=== PATIENT | male | born 1960 | race Caucasian/White ===

== ENCOUNTER → 2016-05-25 | Outpatient (CLI) | payer BC ==
[~2016-05-25] MED LIST: LOSA50TA6 PO
--- NOTE | 2016-05-25 18:26 | DIAGNOSTIC IMAGING REPORT ---
KUB HISTORY: SWALLOWED FOREIGN BODY COMPARISON: KUB 02/15/2015. FINDINGS: The bowel gas pattern is unremarkable. There are no dilated loops of small bowel to suggest an obstruction. No renal calculi. No ureteral calculi. No pneumoperitoneum or pneumatosis. No radiopaque foreign bodies. IMPRESSION: No radiopaque foreign bodies within the abdomen or pelvis. Electronically signed by: Pranav Rodriguez M.D. 05/25/2016 6:25 PM Dictated Date/Time: 05/25/2016 6:23 PM
--- NOTE | 2016-05-25 18:30 | DIAGNOSTIC IMAGING REPORT ---
CHEST 2 VIEWS ROUTINE HISTORY: Evaluate for foreign body. COMPARISON: Chest 02/23/2015. FINDINGS: The heart remains mildly enlarged. The lungs are clear. No pleural effusions. No pneumothorax. No radiopaque foreign bodies. IMPRESSION: No radiopaque foreign bodies within the chest. Electronically signed by: Pranav Rodriguez M.D. 05/25/2016 6:29 PM Dictated Date/Time: 05/25/2016 6:27 PM
== END | disposition home or self-care (01) ==
LOC: C.RAD 17:45
PROVIDERS: ATTEND Nurse Practitioner Family
DX: Z87.821 Personal history of retained foreign body fully removed (principal)

== ENCOUNTER 2024-11-04 22:04 | Inpatient (IN) ==
[2024-11-04 23:17] LABS: Appearance Urine Clear (Clear); Bacteria Urine Automated None Seen (None Seen); Cast Urine Automated 0-2 /lpf (0-2); Epithelial Cell Urine Auto 0-2 /hpf (0-2); Glucose Urine UA Negative (Negative); RBC Urine Automated 0-2 /hpf (0-2); WBC Urine Automated 0-5 /hpf (0-5)
[2024-11-04 23:18] LABS: Alanine Aminotransferase 89.0 U/L (7-52); Albumin Globulin Ratio 0.9 (0.9-2); Alkaline Phosphatase 127.0 U/L (34-104); Anion Gap 6.0 (3-11); Bilirubin,Total 1.5 mg/dl (0.2-1.0); Blood Urea Nitrogen 18.0 mg/dl (6-23); Calcium 9.4 mg/dl (8.6-10.3); Carbon Dioxide 26.0 mmol/L (21-32); Chloride 99.0 mmol/L (98-107); Creatinine Clr Calc Pharmacy 134.8 ml/min; Globulin 3.5 gm/dl (2.5-4.0); Glucose 119.0 mg/dl (70-99(Fasting)); Magnesium 1.9 mg/dl (1.7-2.4); Potassium 4.2 mmol/L (3.5-5.1); Sodium 131.0 mmol/L (136-145); Total Protein 6.6 gm/dl (6.0-8.3)
[2024-11-04 23:32] LABS: Influenza A virus by PCR Negative (Neg); Influenza B virus by PCR Negative (Neg); SARS CoV2 RNA(COVID-19) Ceph POSITIVE (Negative)
[2024-11-04 23:42] LABS: Hematocrit (blood only) 34.8 % (42.0-52.0); Hemoglobin 11.5 g/dl (14.0-18.0); Immature Granulocytes # (auto) 0.01 K/uL (0.01-0.20); Immature Granulocytes % (auto) 1.3 %; Mean Corpuscular Hemoglobin 29.4 pg (25.0-34.0); Mean Corpuscular Volume 89.0 fL (80.0-100.0); Platelet Count 131 K/uL (130-400); RDW Standard Deviation 45.3 fL (36.4-46.3); Red Blood Count 3.91 M/uL (4.70-6.10); White Blood Count 0.79 K/ul (4.8-10.8)
[2024-11-04 23:47] LABS: INR 1.1 (0.9-1.1); Partial Thromboplastin Time 30 Seconds (21-31); Prothrombin Time 11.9 Seconds (9.0-12.0)
--- NOTE | 2024-11-04 23:57 | XRay Report ---
Exam(s): XR CXR 1 VIEW EXAM: XR Chest, 1 View CLINICAL HISTORY: Reason for exam: Sepsis. TECHNIQUE: Frontal view of the chest. COMPARISON: Chest x-ray: 10/21/2024 FINDINGS: Lungs: Unremarkable. No consolidation. Pleural space: Unremarkable. No pneumothorax. Heart: Unremarkable. No cardiomegaly. Mediastinum: Unremarkable. Normal mediastinal contour. Bones/joints: Unremarkable. No acute fracture. IMPRESSION: No acute cardiopulmonary abnormality. Electronically signed by: Pantera Lindsay MD 11/04/24 23:56 PM
[2024-11-05] MEDS: SODIUM CHLORIDE 0.9% 1,000 ML IV SCH (00:16)
[2024-11-05] MEDS ORDERED: VANCOMYCIN CONSULT ACTIVE PRN ×2 (00:30→06:07)
--- NOTE | 2024-11-05 00:32 | Emergency Department Note ---
Impression & Plan Left sided abdominal pain, Lymphoma, Fever and neutropenia, COVID ED Provider Note CHIEF COMPLAINT: Fever HISTORY OF PRESENTING ILLNESS: The patient is a pleasant 64-year-old male who arrives to the emergency department with his for evaluation of fever that began yesterday. 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 He states he received his first treatment last week. He also reports a history of an ascending aortic aneurysm, which she was to have repaired, prior to his cancer diagnosis. He reports no chest pain, or shortness of breath. He states he noted having some matting, and drainage of his right eye upon waking yesterday. He states he called the [facility], who referred him to ophthalmology. He was diagnosed with bacterial conjunctivitis, and provided antibiotic drops. He states throughout the day he became increasingly tired, and noted a fever. He reports he then contacted the [facility] again, who stated he should be referred to the emergency department for evaluation. He does also report some abdominal pain, with nausea, however no vomiting. He reports no dysuria, diarrhea, or constipation. He is febrile upon arrival. REVIEW OF SYSTEMS: See HPI for pertinent positives and pertinent negatives. ALLERGIES: See below MEDICATIONS: See below PAST MEDICAL HISTORY: See below PHYSICAL EXAM: VITALS: Vitals are noted on the nurse's note and reviewed by myself. Vital signs stable. GENERAL: 64-year-old male, in no acute distress, nondiaphoretic, well-developed well-nourished. SKIN: The skin was without rashes, erythema, edema, or bruising. HEAD: Normocephalic atraumatic. EYES: Pupils equal round and reactive to light and accommodation. Right eye conjunctival injection, sclerae without icterus. Extraocular movements intact. No drainage noted. MOUTH: Mucous membranes moist. No tonsillar hypertrophy. Pharynx without erythema or exudate. Uvula midline. Airway patent. Tongue does not deviate. NECK: Supple without nuchal rigidity. No JVD. HEART: Tachycardia with regular rhythm without murmurs gallops or rubs. LUNGS: Clear to auscultation bilaterally without wheezes, rales or rhonchi. No retractions or accessory muscle use. ABDOMEN: Positive bowel sounds x 4. Soft, diffuse tenderness to palpation, most specifically in the left lower quadrant. No rebound tenderness or guarding. MUSCULOSKELETAL: No muscle atrophy, erythema, or edema noted. Normal gait. Strength 5/5 throughout. NEURO: Patient was alert and oriented to person place and time. No focal neurological deficits. DIFFERENTIAL DIAGNOSIS: Appendicitis, metastatic disease, neutropenic fever, viral illness,infections, diverticulitis, UTI, obstruction, mesenteric ischemia, aortic pathology, inflammatory bowel disease, renal colic, PUD, pancreatitis, biliary pathology, hernia, volvulus, constipation, as well as other pathologies. ED COURSE AND MEDICAL DECISION MAKING: HISTORY FROM INDEPENDENT HISTORIAN: at bedside serving as secondary historian. MEDICATIONS GIVEN: IV fluid resuscitation, initial thought for sepsis fluid volume resuscitation, however patient is currently receiving chemotherapy, and does have a cardiac history. Fluid resuscitation, was provided, however infused slowly to avoid fluid volume overload. MONITOR: Continuous hospital monitor: Order was placed for continuous hospital monitor. Patient was placed on the hospital monitor and continuous pulse ox. Patient was noted to be in normal sinus rhythm at an initial rate of 109 bpm per my interpretation. EKG: EKG was interpreted by myself as sinus tachycardia at a rate of 103 bpm, no ST elevation, or depression. Previous for comparison from 10/26/24 shows resolution of nonspecific T wave abnormality in inferior leads. INTERPRETATION OF LABS: I interpreted the labs with full lab results as below in the lab section of this note. Pertinent lab results discussed in the MDM section below. INTERPRETATION OF IMAGING: Imaging studies were interpreted by myself and read by radiology as per the imaging section of this note. CHRONIC MEDICAL/SOCIAL CONDITIONS AFFECTING CARE: Metastatic disease, splenic mass, ascending aorta dilatation. ESCALATION OF CARE CONSIDERED: Admission indicated for neutropenic fever, and administration of IV antibiotics. MDM SUMMARY: The patient is a pleasant, 64-year-old male who arrives to the emergency department for evaluation of the above-stated complaint. Patient arrived during a time of high acuity and high-volume. Initial workup was performed in triage including a saline lock, and initial sepsis workup. Lab work shows WBC 0.79, neutrophils 0.45, consistent with neutropenia. Patient does have a chronic anemia. Platelets within normal limits. Coags within normal limits. CMP shows slight hyponatremia at 131, total bilirubin 1.5, AST 71, ALT 89, alkaline phosphatase 127. Troponin 11.4. Urinalysis shows 1+ leukocyte esterase, no bacteria, negative nitrites. However respiratory viral panel positive for COVID. EKG interpreted as above. Chest x-ray shows no consolidative pneumonia. Procalcitonin, pending lactate negative. CT imaging of the abdomen and pelvis with IV contrast was obtained due to the patient's left lower quadrant tenderness to palpation, as well as diffuse tenderness. CT imaging shows splenomegaly, with an enhancing lesion measuring 13 x 10 mm. Few patchy similar hypodense areas are noted in remaining splenic parenchyma as well. Possibility of splenic lymphoma likely, biopsy is recommended. There is evidence of few prominent lymph nodes at the lennox hepatis and adjacent to the splenic hilum with the largest measuring 17 mm, which are stable. Multiple prominent nonnecrotic lymph nodes are also noted aortocaval para-aortic and right common iliac vessels which are stable. Few small gravel's are noted in bilateral kidneys which are stable. Patient also has an enlarged prostate, and hepatomegaly which are both stable. Patient was started on broad-spectrum antibiotics. Fluid resuscitation provided, however unable to administer initial boluses, weight-based due to cardiac history, as well as current chemotherapy in an attempt to avoid fluid overload. Patient will be admitted to the hospital for IV antibiotic administration, and neutropenia. Case was discussed with the [facility] hospitalist group. Dr. Anthony, Agreed to set the patient for admission. Please refer to their documentation for further patient workup and care. DIAGNOSIS: Fever and neutropenia, COVID, left-sided abdominal pain, lymphoma I have personally spent greater than 30 minutes of critical care time in the direct management of this patient. This includes bedside care, interpretation of diagnostic studies, and testing, discussion with consultants, patient, and family members, and other required patient management activities. This 30 minutes is in excess of all separately billable procedures. The chart was completed utilizing [employer] Speech voice recognition software. Grammatical errors, random word insertions, pronoun errors, and incomplete sentences are an occasional consequence of this system due to software limitations, ambient noise, and hardware issues. Any formal questions or concerns about the content, text, or information contained within the body of this dictation should be directly addressed to the provider for clarification. Past Med/Surg History Problem List (Updated 11/05/24 @ 03:57 by YARI Ventura) COVID (Acute) Fever and neutropenia (Acute) Left sided abdominal pain (Acute) Lymphoma (Acute) Short of breath on exertion Morbid obesity Splenic mass Pulmonary nodule Ex-smoker Bone lesion Lymphadenopathy (Acute) Atypical chest pain Weak urinary stream HAKEEM positive 03/2024 - weakly positive 1:80. Obtained for LFT w/u. No joint pains or rashes to suggest SLE at that time. Elevated PSA Transaminitis Obesity (BMI 30-39.9) Type 2 diabetes mellitus with obesity Essential tremor Elevated LFTs Liver ultrasound 08/2023: Cholelithiasis, hepatomegaly, nephrolithiasis Ascending aorta dilatation Echo 12/2022: Dilated aortic root (4.7cm), ascending aorta (4.0cm) and aortic arch (4.0cm) Hyperlipidemia Hypertension Medical History Weak urinary stream hx Type 2 diabetes mellitus with obesity pt denies, "never told this" Splenic mass pt unsure about this? Pulmonary nodule History of hypertension Hx of hyperlipidemia Essential tremor Ascending aorta dilatation dilated aortic root 5.1 cm 10/17/24, pt was scheduled for s[place] [facility] [place] "for this, but it had to be pushed back due to my cancer diagnosis" HAKEEM positive 03/2024 - "weakly positive 1:80. Obtained for LFT w/u. No joint pains or rashes to suggest SLE at that time.">per PCP Shortness of breath on exertion pt denies "never had this problem" Hx of lymphoma dx 10/17/24 Hx of hiatal hernia repaired Hx of gastroesophageal reflux (GERD) Actinic keratosis Located to bilateral forearms s/p cryotherapy at [facility] PVCs (premature ventricular contractions) asymptomatic Umbilical hernia without obstruction and without gangrene repaired Osteoarthritis Tubular adenoma of colon hx Hepatomegaly Per 08/2023 liver ultrasound Cholelithiases resolved Hx of renal calculi Right side Surgical History Port-A-Cath in place (10/22/24) Insertion of Access Port with Fluoroscopy left subclavian (Left) - Elie Petersen, DO Hx of cardiac cath (09/25/24) [facility] "preop for sx that was scheduled on his aorta for 10/29/24 at [facility]", no stents H/O umbilical hernia repair (01/23/24) Robotic Assisted Laparoscopic Cholecystectomy, Cholangiogram(Not Applicable) - Elie Petersen, DO s Open Umbilical Hernia Repair(Not Applicable) - Elie Petersen, DO Hx laparoscopic cholecystectomy (01/23/24) Robotic Assisted Laparoscopic Cholecystectomy, Cholangiogram(Not Applicable) - Elie Petersen, DO s Open Umbilical Hernia Repair(Not Applicable) - Elie Petersen, DO Status post laser lithotripsy of ureteral calculus x2 Hx of laparoscopy inguinal hernia mesh removal H/O left cataract extraction Hx of right cataract extraction Hx of cystoscopy History of esophagogastroduodenoscopy (EGD) Hx of colonoscopy 01/2023 S/P laparoscopic fundoplication (2001) Hx of hernia repair left inguinal hernia repair Hx of skin graft (1962) 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3 - skin graft from right leg to right axilla arm area Family History Father Myocardial infarction age 66 Heart disease Sister Cancer Brother Heart disease Other No family history of adverse response to anesthesia Denies family history of Ovarian cancer Prostate cancer Breast cancer Lung cancer Colorectal cancer Social History Smoking Status: Former smoker Tobacco Type: Cigarettes and Cigars Age Started Using Tobacco: 14; Age Quit Using Tobacco: 46; packs per day: 1; Second Hand Exposure: No; Do You Dip or Chew Tobacco: No; Hx Alcohol Use: Yes Alcohol type: beer and hard liquor Alcohol Intake Frequency: 2-3 x/Week Hx Substance Use: No Preferred Language: Kazakh Communication Ability: Effective Visual Impairment: No Limitations Hearing Ability: Normal Supervisor Home Restoration Service Required: No Beliefs That Will Affect Care: None marital status: Current Living Situation: Spouse current occupational status: employed How many Children do You have: 4 Feels Safe at Home: Yes Childhood Exposure to Second-Hand Smoke: No Diet: regular caffeine: Yes (soda , coffee ) during the past year weight has: decreased > 10 lbs Dental Care, Regularly: No Physical Activity Frequency: 5-6 Times per Week Seatbelt Use: always Sunscreen Use: No Assistive Devices: Denture - Upper and Glasses Allergies Allergies Allergy/AdvReac Type Severity Reaction Status Date / Time Sulfa (Sulfonamide Allergy Unknown Hives Verified 10/21/24 10:23 Antibiotics) Home Meds Home Medications Medication Instructions Recorded Confirmed aspirin 81 mg capsule 81 mg PO QAM preventative 11/20/22 11/05/24 multivitamin 1 tab PO QAM 11/20/22 11/05/24 amlodipine 5 mg tablet 5 mg PO QAM 08/28/23 11/05/24 ascorbic acid (vitamin C) 250 mg 500 mg PO QAM 08/28/23 11/05/24 tablet (Vitamin C) icosapent ethyl 1 gram capsule 1 g PO BID 08/28/24 11/05/24 (Vascepa) pravastatin 20 mg tablet 20 mg PO QAM 08/28/24 11/05/24 magnesium 1 tab PO QPM 10/17/24 11/05/24 tamsulosin 0.4 mg capsule (Flomax) 0.4 mg PO HS 10/17/24 11/05/24 ondansetron 8 mg disintegrating 8 mg PO Q8 PRN Nausea And Vomiting 11/05/24 11/05/24 tablet prochlorperazine maleate 10 mg 10 mg PO UD PRN Nausea And Vomiting 11/05/24 11/05/24 tablet Previous Rx's Medication Instructions Recorded omeprazole 40 mg capsule,delayed 40 mg PO QAM #90 caps 09/16/24 release oxycodone 5 mg tablet 5 mg PO Q6H PRN pain #12 tabs 10/21/24 Results & Data (ED) Vital Signs Vital Signs - 24 hr 11/04/24 22:10 11/04/24 22:58 11/04/24 22:58 Temperature 38 C H 37.5 C Temperature Source Oral Oral Pulse Rate 109 H 104 H Pulse Rate [Apical] 103 H Pulse Rate from SpO2 Sensor Pulse Rhythm Regular Regular Pulse Rhythm [Apical] Regular Pulse Strength Normal Pulse Strength [Apical] Normal Respiratory Rate 20 18 23 Respiratory Effort / Characteristics Non-Labored Spontaneous Non-Labored Spontaneous Respiratory Depth Normal Normal Respiratory Pattern Regular Regular Blood Pressure 104/62 Blood Pressure [Right Arm] 108/71 Blood Pressure Mean 76 Blood Pressure Mean [Right Arm] 83 Blood Pressure Position Sitting Pulse Oximetry 96 96 94 Oxygen Delivery Method Room Air Room Air Room Air Sepsis Recent Fever Within 48 Hours Yes Sepsis New/Unexplained Change in Mental Status N/A Sepsis Action Taken by Nursing No Action Required 11/04/24 23:30 11/05/24 00:00 11/05/24 00:30 Temperature Temperature Source Pulse Rate 96 H 96 H 100 H Pulse Rate [Apical] Pulse Rate from SpO2 Sensor Pulse Rhythm Pulse Rhythm [Apical] Pulse Strength Pulse Strength [Apical] Respiratory Rate 22 28 H 25 H Respiratory Effort / Characteristics Respiratory Depth Respiratory Pattern Blood Pressure 117/72 117/73 108/66 Blood Pressure [Right Arm] Blood Pressure Mean 87 86 81 Blood Pressure Mean [Right Arm] Blood Pressure Position Pulse Oximetry 91 91 96 Oxygen Delivery Method Sepsis Recent Fever Within 48 Hours Sepsis New/Unexplained Change in Mental Status Sepsis Action Taken by Nursing 11/05/24 01:24 11/05/24 01:30 11/05/24 02:00 Temperature Temperature Source Pulse Rate 95 H 93 H 89 Pulse Rate [Apical] Pulse Rate from SpO2 Sensor Pulse Rhythm Pulse Rhythm [Apical] Pulse Strength Pulse Strength [Apical] Respiratory Rate 24 24 21 Respiratory Effort / Characteristics Respiratory Depth Respiratory Pattern Blood Pressure 123/70 118/68 118/66 Blood Pressure [Right Arm] Blood Pressure Mean 87 86 83 Blood Pressure Mean [Right Arm] Blood Pressure Position Pulse Oximetry 98 93 92 Oxygen Delivery Method Sepsis Recent Fever Within 48 Hours Sepsis New/Unexplained Change in Mental Status Sepsis Action Taken by Nursing 11/05/24 02:15 11/05/24 02:30 11/05/24 03:00 Temperature Temperature Source Pulse Rate 88 93 H 83 Pulse Rate [Apical] Pulse Rate from SpO2 Sensor 82 Pulse Rhythm Pulse Rhythm [Apical] Pulse Strength Pulse Strength [Apical] Respiratory Rate 24 21 25 H Respiratory Effort / Characteristics Respiratory Depth Respiratory Pattern Blood Pressure 114/67 112/68 106/61 Blood Pressure [Right Arm] Blood Pressure Mean 82 82 76 Blood Pressure Mean [Right Arm] Blood Pressure Position Pulse Oximetry 93 97 92 Oxygen Delivery Method Room Air Sepsis Recent Fever Within 48 Hours Sepsis New/Unexplained Change in Mental Status Sepsis Action Taken by [facility] Medications Current Medication List: was personally reviewed by me Laboratory Data Attestation: I reviewed the patient's lab results. 11/04/24 22:30 11/04/24 22:30 Lab Results 11/04/24 11/04/24 11/04/24 Range/Units 22:30 22:32 23:00 WBC 0.79 L* (4.8-10.8) K/ul RBC 3.91 L (4.70-6.10) M/uL Hgb 11.5 L (14.0-18.0) g/dl Hct 34.8 L (42.0-52.0) % MCV 89.0 (80.0-100.0) fL MCH 29.4 (25.0-34.0) pg MCHC 33.0 (32.0-36.0) g/dL RDW Std Deviation 45.3 (36.4-46.3) fL RDW Coeff of Sharita 14.0 (11.5-14.5) % Plt Count 131 (130-400) K/uL MPV 9.1 L (9.4-12.4) fL Immature Gran % (Auto) 1.3 % Neut % (Auto) 56.9 % Lymph % (Auto) 17.7 % Dane % (Auto) 5.1 % Eos % (Auto) 16.5 % Baso % (Auto) 2.5 % Neut # (Auto) 0.45 L* (1.40-6.50) K/uL Lymph # (Auto) 0.14 L (1.20-3.40) K/uL Dane # (Auto) 0.04 L (0.11-0.59) K/uL Eos # (Auto) 0.13 (0.00-0.50) K/uL Baso # (Auto) 0.02 (0.00-0.20) K/uL Immature Gran # (Auto) 0.01 (0.01-0.20) K/uL PT 11.9 (9.0-12.0) Seconds INR 1.1 (0.9-1.1) APTT 30 (21-31) Seconds PTT Ratio 1.1 Sodium 131 L (136-145) mmol/L Potassium 4.2 (3.5-5.1) mmol/L Chloride 99 (98-107) mmol/L Carbon Dioxide 26 (21-32) mmol/L Anion Gap 6 (3-11) BUN 18 (6-23) mg/dl Creatinine 0.73 (0.6-1.4) mg/dl Est Cr Clr Drug Dosing 134.8 ml/min eGFR 100.34 BUN/Creatinine Ratio 24.7 H (10-20) Glucose 119 H (70-99(Fasting)) mg/dl Lactate (0.4-2.0) mmol/L Calcium 9.4 (8.6-10.3) mg/dl Magnesium 1.9 (1.7-2.4) mg/dl Total Bilirubin 1.5 H (0.2-1.0) mg/dl AST 71 H (13-39) U/L ALT 89 H (7-52) U/L Alkaline Phosphatase 127 H (34-104) U/L Troponin I High Sens 11.4 (0-20) pg/ml Total Protein 6.6 (6.0-8.3) gm/dl Albumin 3.1 L (3.4-5.0) gm/dl Globulin 3.5 (2.5-4.0) gm/dl Albumin/Globulin Ratio 0.9 (0.9-2) Urine Color Yellow Urine Appearance Clear (Clear) Urine pH 6.5 (4.5-7.5) Ur Specific Wainwright 1.015 (1.000-1.030) Urine Protein Negative (Negative) Urine Glucose (UA) Negative (Negative) Urine Ketones Negative (Negative) Urine Blood Negative (Negative) Urine Nitrite Negative (Negative) Urine Bilirubin Negative (Negative) Urine Urobilinogen Negative (Negative) Ur Leukocyte Esterase 1+ H (Negative) Urine WBC (Auto) 0-5 (0-5) /hpf Urine RBC (Auto) 0-2 (0-2) /hpf U Hyaline Cast (Auto) 0-2 (0-2) /lpf U Epithel Cells (Auto) 0-2 (0-2) /hpf Urine Bacteria (Auto) None Seen (None Seen) Urine Comment SARS-CoV-2 (PCR) POSITIVE A (Negative) Influenza Type A (PCR) Negative (Neg) Influenza Type B (PCR) Negative (Neg) RSV (RT-PCR) Negative (Neg) 11/05/24 Range/Units 00:53 WBC (4.8-10.8) K/ul RBC (4.70-6.10) M/uL Hgb (14.0-18.0) g/dl Hct (42.0-52.0) % MCV (80.0-100.0) fL MCH (25.0-34.0) pg MCHC (32.0-36.0) g/dL RDW Std Deviation (36.4-46.3) fL RDW Coeff of Sharita (11.5-14.5) % Plt Count (130-400) K/uL MPV (9.4-12.4) fL Immature Gran % (Auto) % Neut % (Auto) % Lymph % (Auto) % Dane % (Auto) % Eos % (Auto) % Baso % (Auto) % Neut # (Auto) (1.40-6.50) K/uL Lymph # (Auto) (1.20-3.40) K/uL Dane # (Auto) (0.11-0.59) K/uL Eos # (Auto) (0.00-0.50) K/uL Baso # (Auto) (0.00-0.20) K/uL Immature Gran # (Auto) (0.01-0.20) K/uL PT (9.0-12.0) Seconds INR (0.9-1.1) APTT (21-31) Seconds PTT Ratio Sodium (136-145) mmol/L Potassium (3.5-5.1) mmol/L Chloride (98-107) mmol/L Carbon Dioxide (21-32) mmol/L Anion Gap (3-11) BUN (6-23) mg/dl Creatinine (0.6-1.4) mg/dl Est Cr Clr Drug Dosing ml/min eGFR BUN/Creatinine Ratio (10-20) Glucose (70-99(Fasting)) mg/dl Lactate 0.9 (0.4-2.0) mmol/L Calcium (8.6-10.3) mg/dl Magnesium (1.7-2.4) mg/dl Total Bilirubin (0.2-1.0) mg/dl AST (13-39) U/L ALT (7-52) U/L Alkaline Phosphatase (34-104) U/L Troponin I High Sens (0-20) pg/ml Total Protein (6.0-8.3) gm/dl Albumin (3.4-5.0) gm/dl Globulin (2.5-4.0) gm/dl Albumin/Globulin Ratio (0.9-2) Urine Color Urine Appearance (Clear) Urine pH (4.5-7.5) Ur Specific Wainwright (1.000-1.030) Urine Protein (Negative) Urine Glucose (UA) (Negative) Urine Ketones (Negative) Urine Blood (Negative) Urine Nitrite (Negative) Urine Bilirubin (Negative) Urine Urobilinogen (Negative) Ur Leukocyte Esterase (Negative) Urine WBC (Auto) (0-5) /hpf Urine RBC (Auto) (0-2) /hpf U Hyaline Cast (Auto) (0-2) /lpf U Epithel Cells (Auto) (0-2) /hpf Urine Bacteria (Auto) (None Seen) Urine Comment SARS-CoV-2 (PCR) (Negative) Influenza Type A (PCR) (Neg) Influenza Type B (PCR) (Neg) RSV (RT-PCR) (Neg) Administered Medications Discontinued Medications Sodium Chloride (Nss) 1,000 mls @ 999 mls/hr IV .[id number] TABITHA Stop: 11/05/24 01:15 Last Infusion: 11/05/24 02:19 Dose: Infused Documented By: Admin: 11/05/24 00:16 Dose: 999 mls/hr Documented By: GABRIELLE Vancomycin HCl 2,250 mg/ (Sodium Chloride) 545 mls @ 200 mls/hr IV NOW ONE Stop: 11/05/24 03:13 Last Admin: 11/05/24 01:34 Dose: 200 mls/hr Documented By: GABRIELLE Piperacillin Sod/Tazobactam Sod (Zosyn) 4.5 gm in 100 mls @ 200 mls/hr IV NOW ONE; Protocol Stop: 11/05/24 00:59 Last Infusion: 11/05/24 02:19 Dose: Infused Documented By: Admin: 11/05/24 00:55 Dose: 200 mls/hr Documented By: GABRIELLE Ioversol (Optiray 320 100ml) 100 ml IV ONCE ONE Stop: 11/05/24 01:11 Last Admin: 11/05/24 01:11 Dose: 93 ml Documented By: KELLY Imaging Data Attestation: I personally reviewed and interpreted this imaging study as follows: Radiologist's Impression: Chest X-Ray 11/04/24 22:15 Exam(s): XR CXR 1 VIEW EXAM: XR Chest, 1 View CLINICAL HISTORY: Reason for exam: Sepsis. TECHNIQUE: Frontal view of the chest. COMPARISON: Chest x-ray: 10/21/2024 FINDINGS: Lungs: Unremarkable. No consolidation. Pleural space: Unremarkable. No pneumothorax. Heart: Unremarkable. No cardiomegaly. Mediastinum: Unremarkable. Normal mediastinal contour. Bones/joints: Unremarkable. No acute fracture. IMPRESSION: No acute cardiopulmonary abnormality. Electronically signed by: Pantera Lindsay MD 11/04/24 23:56 PM Abdomen/Pelvis CT 11/05/24 00:16 EXAM: CT abd pelvis IV con only CLINICAL HISTORY: abd pain TECHNIQUE: Contiguous axial images were obtained from the level of the diaphragm to the pubic symphysis with intravenous contrast. Coronal and sagittal reconstructions were likewise performed and indicated to increase the sensitivity for detecting clinically relevant pathology. If IV contrast material had not been administered, the likelihood of detecting abnormalities relevant to the patient's condition would have been substantially decreased. CT scan was performed according to ALARA (as low as reasonable achievable). 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 Evidence of few prominent lymph nodes at lennox hepatis and adjacent to the splenic hilum.- largest measures 18 mm Multiple prominent non-necrotic lymph nodes are also noted at aortocaval, para-aortic and right common iliac vessels- largest measuring 23 mm The spleen appears enlarged in size and shows a huge heterogeneously enhancing lesion measuring about 13 x 10 mm. Few patchy similar hypodense area are noted in remaining splenic parenchyma as well. The liver is enlarged size (19cm in mid clavicular line)and normal in attenuation. No focal liver lesions are seen. There is no intra or extrahepatic biliary ductal dilatation. Hepatic vasculature is patent. The gallbladder is absent. The pancreas, and adrenal glands are unremarkable. The kidneys are normal in size and attenuation. There is no hydronephrosis or perinephric fat stranding. Few small gravels are noted involving bilateral kidneys The ureters are normal in caliber and no ureteral calculi are seen. The bladder is normal in contour. Pelvic viscera are unremarkable. No focal or diffuse bowel wall thickening or evidence of bowel obstruction is identified. The appendix is visualized in the right lower quadrant and appears within normal limits. Abdominal and pelvic vasculature is patent. No aggressive appearing osseous lesions are identified. Enlarged prostate. IMPRESSION: 1. The spleen appears enlarged in size and shows a huge heterogeneously enhancing lesion measuring about 13 x 10 mm. 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 -stable in size. HPE correlation suggested. 2. Evidence of few prominent lymph nodes at lennox hepatis and adjacent to the splenic hilum.- largest measures 17 mm-stable. 3. Multiple prominent non-necrotic lymph nodes are also noted at aortocaval, para-aortic and right common iliac vessels- -stable. 4. Few small gravels are noted in bilateral kidney-stable. 5. Enlarged prostate.-stable. 6. Hepatomegaly- stable Electronically signed by Navid Falcon 11-05-2024 02:30 AM Discharge Plan Visit Data Chief Complaint: Fever Stated Complaint: HIGH FEVER, STAGE 4 CANCER ED Provider: Marisel Kong ED Midlevel Provider: Breanne Pizarro Discharge Problem: Left sided abdominal pain, Lymphoma, Fever and neutropenia, COVID Patient Disposition: Admitted As Inpatient Condition: Fair Forms Stand Alone Forms: [facility] Prescriptions Prescriptions: No Action omeprazole 40 mg capsule,delayed release(DR/EC) 40 mg PO QAM Qty: 90 3RF amlodipine 5 mg tablet 5 mg PO QAM icosapent ethyl [Vascepa] 1 gram capsule 1 g PO BID pravastatin 20 mg tablet 20 mg PO QAM multivitamin Tablet 1 tab PO QAM aspirin 81 mg Capsule 81 mg PO QAM ascorbic acid (vitamin C) [Vitamin C] 250 mg tablet 500 mg PO QAM magnesium Tablet 1 tab PO QPM tamsulosin [Flomax] 0.4 mg capsule 0.4 mg PO HS oxycodone 5 mg tablet 5 mg PO Q6H PRN (Reason: pain) Qty: 12 0RF Rx Instructions: Initial therapy post surgery prochlorperazine maleate 10 mg tablet 10 mg PO UD PRN (Reason: Nausea And Vomiting) ondansetron 8 mg tablet,disintegrating 8 mg PO Q8 PRN (Reason: Nausea And Vomiting) Referrals Referrals: Ochoa Brown DO [Primary Care Provider] -
[2024-11-05] MEDS: PIPERACILLIN/TAZOBACTAM 4.5 GM/100 ML BAG IV ONE (00:55)
[2024-11-05] MEDS: OPTIRAY 320 100ml IV ONE (01:11)
[2024-11-05] MEDS: VANCOMYCIN HCL 2,250 MG in SODIUM CHLORIDE 0.9% 500 ML IV ONE (01:34)
--- NOTE | 2024-11-05 02:31 | CT Scan Report ---
EXAM: CT abd pelvis IV con only CLINICAL HISTORY: abd pain TECHNIQUE: Contiguous axial images were obtained from the level of the diaphragm to the pubic symphysis with intravenous contrast. Coronal and sagittal reconstructions were likewise performed and indicated to increase the sensitivity for detecting clinically relevant pathology. If IV contrast material had not been administered, the likelihood of detecting abnormalities relevant to the patient's condition would have been substantially decreased. CT scan was performed according to ALARA (as low as reasonable achievable). COMPARISON: October 20:12:19 COUNSELING CASE MANAGER FINDINGS: The visualized lung bases are clear.Sliding hiatus hernia noted.-stable. Evidence of few prominent lymph nodes at lennox hepatis and adjacent to the splenic hilum.- largest measures 18 mm Multiple prominent non-necrotic lymph nodes are also noted at aortocaval, para-aortic and right common iliac vessels- largest measuring 23 mm The spleen appears enlarged in size and shows a huge heterogeneously enhancing lesion measuring about 13 x 10 mm. Few patchy similar hypodense area are noted in remaining splenic parenchyma as well. The liver is enlarged size (19cm in mid clavicular line)and normal in attenuation. No focal liver lesions are seen. There is no intra or extrahepatic biliary ductal dilatation. Hepatic vasculature is patent. The gallbladder is absent. The pancreas, and adrenal glands are unremarkable. The kidneys are normal in size and attenuation. There is no hydronephrosis or perinephric fat stranding. Few small gravels are noted involving bilateral kidneys The ureters are normal in caliber and no ureteral calculi are seen. The bladder is normal in contour. Pelvic viscera are unremarkable. No focal or diffuse bowel wall thickening or evidence of bowel obstruction is identified. The appendix is visualized in the right lower quadrant and appears within normal limits. Abdominal and pelvic vasculature is patent. No aggressive appearing osseous lesions are identified. Enlarged prostate. IMPRESSION: 1. The spleen appears enlarged in size and shows a huge heterogeneously enhancing lesion measuring about 13 x 10 mm. 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 -stable in size. HPE correlation suggested. 2. Evidence of few prominent lymph nodes at lennox hepatis and adjacent to the splenic hilum.- largest measures 17 mm-stable. 3. Multiple prominent non-necrotic lymph nodes are also noted at aortocaval, para-aortic and right common iliac vessels- -stable. 4. Few small gravels are noted in bilateral kidney-stable. 5. Enlarged prostate.-stable. 6. Hepatomegaly- stable Electronically signed by Navid Falcon 11-05-2024 02:30 AM
--- NOTE | 2024-11-05 03:51 | History & Physical Report ---
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 #Fever in neutropenic patient - in a patient on immunotherapy for AITL, first and only dose of immunotherapy so far was on 10/30 - pt with fever at home 102F and was also febrile on presentation to the hospital, as well as leukopenic/neutropenic - he tested positive for COVID in the ED but does not endorse any resp symptoms aside from chronic cough which is not worse, - CXR unremarkable, CT abd without apparent acute process - cause of fever may be due to early COVID infection vs gastroenteritis since he has diarrhea on admission, or from bacterial conjunctivitis - given absence of significant resp symptoms on admission, will defer remdesivir for now - blood cx pending - will place for c diff order for diarrhea - continue antibiotic eye drops q2h for 3 days (ordered same medication as prescribed by eye doctor) - continue zosyn and vanc pending cultures - neutropenic precautions - IVF 80/hr x1 bag #Lymphoma #Splenic mass - follows with Dr Hodges with local oncology - CT abd 11/04; splenomegaly with 13x10 mm lesion stable in size with few prominant lymph nodes largest 17 mm and hepatomegaly #Transaminitis - on admission; AST 71, ALT 89, Tbili 1.5 - no acute process noted on CTAP - has had mild transaminitis on prior labs dating back to 02/2024 and at that time hep B was negative, hep C Ab negative, hemochromatosis tested and negative for this - will continue to monitor given very mild but if worsening could consider further evaluation #HTN - BP on admission is soft, so will hold home amlodipine VTE ppx: lovenox Diet: starting with clear diet given diarrhea and episode of vomiting, can increase as tolerated History of Present Illness Chief Complaint: Fever Primary Care Provider: Ochoa Brown DO Pt is a 64 yo male with a 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 Pt states he had his first dose of immunotherapy last week on and initially felt okay and actually started to feel half decent on Sunday, then on Sunday started to feel generalized malaise and fatigue. He states he has a chronic cough which has not necessarily been worse. He states he sometimes can cough up some mucus which is clear and nonbloody. He has also noted some abdominal cramping the last few days and today has had nonbloody diarrhea. He states he flips back and forth between being constipated and having diarrhea, if he has diarrhea he takes imodium but then gets constipated and then takes miralax. No dysuria or blood in the urine. He states that on 11/04 he woke up with eye irritation and discharged, called the cancer center, they told him to see his eye doctor who dx him with bacterial conjunctivitis and gave him eye drops. He states throughout the day he then developed fever to 102F at home. He states he called the cancer center again and given the fever they urged him to come into the ED. He states on 11/04 he had some nausea and an episode of vomiting as well. No chest pain or SOB. No pain anywhere at the present. Allergies Allergy/AdvReac Type Severity Reaction Status Date / Time Sulfa (Sulfonamide Allergy Unknown Hives Verified 10/21/24 10:23 Antibiotics) Home Medications Medication Instructions Recorded Confirmed Type aspirin 81 mg capsule 81 mg PO QAM preventative 11/20/22 11/05/24 History multivitamin 1 tab PO QAM 11/20/22 11/05/24 History amlodipine 5 mg tablet 5 mg PO QAM 08/28/23 11/05/24 History ascorbic acid (vitamin C) 250 mg 500 mg PO QAM 08/28/23 11/05/24 History tablet (Vitamin C) icosapent ethyl 1 gram capsule 1 g PO BID 08/28/24 11/05/24 History (Vascepa) pravastatin 20 mg tablet 20 mg PO QAM 08/28/24 11/05/24 History omeprazole 40 mg capsule,delayed 40 mg PO QAM #90 caps 09/16/24 11/05/24 Rx release magnesium 1 tab PO QPM 10/17/24 11/05/24 History tamsulosin 0.4 mg capsule (Flomax) 0.4 mg PO HS 10/17/24 11/05/24 History oxycodone 5 mg tablet 5 mg PO Q6H PRN pain #12 tabs 10/21/24 11/05/24 Rx ondansetron 8 mg disintegrating 8 mg PO Q8 PRN Nausea And Vomiting 11/05/24 11/05/24 History tablet prochlorperazine maleate 10 mg 10 mg PO UD PRN Nausea And Vomiting 11/05/24 11/05/24 History tablet Past Med/Surg History Problem List (Updated 11/10/24 @ 10:39 by William Marcano DO) GAYATRI (acute kidney injury) Fever and neutropenia (Acute) COVID (Acute) Left sided abdominal pain (Acute) Lymphoma (Acute) Short of breath on exertion Morbid obesity Splenic mass Pulmonary nodule Ex-smoker Bone lesion Lymphadenopathy (Acute) Atypical chest pain Weak urinary stream HAKEEM positive 03/2024 - weakly positive 1:80. Obtained for LFT w/u. No joint pains or rashes to suggest SLE at that time. Elevated PSA Transaminitis Obesity (BMI 30-39.9) Type 2 diabetes mellitus with obesity Essential tremor Elevated LFTs Liver ultrasound 08/2023: Cholelithiasis, hepatomegaly, nephrolithiasis Ascending aorta dilatation Echo 12/2022: Dilated aortic root (4.7cm), ascending aorta (4.0cm) and aortic arch (4.0cm) Hyperlipidemia Hypertension Medical History (Updated 11/10/24 @ 10:39 by William Marcano DO) Weak urinary stream hx Type 2 diabetes mellitus with obesity pt denies, "never told this" Splenic mass pt unsure about this? Pulmonary nodule History of hypertension Hx of hyperlipidemia Essential tremor Ascending aorta dilatation dilated aortic root 5.1 cm 10/17/24, pt was scheduled for sx at [facility] [place] 10/29/24 "for this, but it had to be pushed back due to my cancer diagnosis" HAKEEM positive 03/2024 - "weakly positive 1:80. Obtained for LFT w/u. No joint pains or rashes to suggest SLE at that time.">per PCP Shortness of breath on exertion pt denies "never had this problem" Hx of lymphoma dx 10/17/24 Hx of hiatal hernia repaired Hx of gastroesophageal reflux (GERD) Actinic keratosis Located to bilateral forearms s/p cryotherapy at [facility] PVCs (premature ventricular contractions) asymptomatic Umbilical hernia without obstruction and without gangrene repaired Osteoarthritis Tubular adenoma of colon hx Hepatomegaly Per 08/2023 liver ultrasound Cholelithiases resolved Hx of renal calculi Right side Surgical History Port-A-Cath in place (10/22/24) Insertion of Access Port with Fluoroscopy left subclavian (Left) - Elie Petersen, DO Hx of cardiac cath (09/25/24) [facility], "preop for sx that was scheduled on his aorta for 10/29/24 at [facility]", no stents H/O umbilical hernia repair (01/23/24) Robotic Assisted Laparoscopic Cholecystectomy, Cholangiogram(Not Applicable) - Elie Petersen, DO s Open Umbilical Hernia Repair(Not Applicable) - Elie Petersen, DO Hx laparoscopic cholecystectomy (01/23/24) Robotic Assisted Laparoscopic Cholecystectomy, Cholangiogram(Not Applicable) - Elie Petersen, DO s Open Umbilical Hernia Repair(Not Applicable) - Elie Petersen, DO Status post laser lithotripsy of ureteral calculus x2 Hx of laparoscopy inguinal hernia mesh removal H/O left cataract extraction Hx of right cataract extraction Hx of cystoscopy History of esophagogastroduodenoscopy (EGD) Hx of colonoscopy 01/2023 S/P laparoscopic fundoplication (2001) Hx of hernia repair left inguinal hernia repair Hx of skin graft (1962) 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3 - skin graft from right leg to right axilla arm area Family History Father Myocardial infarction age 66 Heart disease Sister Cancer Brother Heart disease Other No family history of adverse response to anesthesia Denies family history of Ovarian cancer Prostate cancer Breast cancer Lung cancer Colorectal cancer Social History Smoking Status: Former smoker Tobacco Type: Cigarettes Age Started Using Tobacco: 14; Age Quit Using Tobacco: 46; packs per day: 1; Second Hand Exposure: No; Do You Dip or Chew Tobacco: No; Hx Alcohol Use: Yes Alcohol type: beer and hard liquor Alcohol Intake Frequency: 2-3 x/Week Hx Substance Use: No Preferred Language: Chinese Communication Ability: Effective Visual Impairment: No Limitations Hearing Ability: Normal Credit Control Assistant Required: No Beliefs That Will Affect Care: None marital status: Current Living Situation: Spouse current occupational status: employed How many Children do You have: 4 Other Information That Helps Us Care for You: No Feels Safe at Home: Yes Safety Concerns: Feels Safe At This Time Childhood Exposure to Second-Hand Smoke: No Diet: regular caffeine: Yes (soda , coffee ) during the past year weight has: decreased > 10 lbs Dental Care, Regularly: No Physical Activity Frequency: 5-6 Times per Week Seatbelt Use: always Sunscreen Use: No Assistive Devices: None Review of Systems Review of Systems: Per HPI. Physical Exam Physical Exam: General: Alert and oriented, no acute distress, very pleasant gentleman HEENT: Normocephalic, moist oral mucosa, R sclera injection noted with watery discharge, L eye wnl Cardio: Regular rate and rhythm, Resp: Lungs clear to auscultation b/l, no wheezes or rhonchi, GI: Distended but soft and nontender, bowel sounds active Skin: Warm, pink, dry, Results & Data Results & Data Vital Signs (Past 12 Hours) Vital Signs Temp Pulse Pulse Resp BP BP Pulse Ox 11/05/24 03:00 83 25 H 106/61 92 11/05/24 02:30 93 H 21 112/68 97 11/05/24 02:15 88 24 114/67 93 11/05/24 02:00 89 21 118/66 92 11/05/24 01:30 93 H 24 118/68 93 11/05/24 01:24 95 H 24 123/70 98 11/05/24 00:30 100 H 25 H 108/66 96 11/05/24 00:00 96 H 28 H 117/73 91 11/04/24 23:30 96 H 22 117/72 91 11/04/24 22:58 104 H 23 94 11/04/24 22:58 37.5 C 103 H 18 108/71 96 11/04/24 22:10 38 C H 109 H 20 104/62 96 O2 Del Method 11/05/24 03:00 Room Air 11/05/24 02:30 11/05/24 02:15 11/05/24 02:00 11/05/24 01:30 11/05/24 01:24 11/05/24 00:30 11/05/24 00:00 11/04/24 23:30 11/04/24 22:58 Room Air 11/04/24 22:58 Room Air 11/04/24 22:10 Room Air Supervising Physician Co-Signing Physician Notes I personally saw and examined the patient. I independently reviewed the labs, EKG, imaging, problem list, medication list, past medical history and family history. I verified all mcwilliams points and agree with resident physician Dr Amy Ye, with the following exceptions and/or additions: 64 year old male presents to the ER with febrile neutropenia. COVID +ve in the ER although only symptom is a cough which does not appear to be acute. O/E HS RRR, no murmurs, Chest CTAB, Abdo SNT A/P Febrile neutropenia - vancomcin/Zosyn pending blood cultures, if negative can be discontinued and presumably secondary to COVID Resident Activity Tracking Resident Involvement: Resident Care Provided Care Provided: Adult Hospital Medicine
[2024-11-05] MEDS ORDERED: VANCOMYCIN HCL 2,250 MG in SODIUM CHLORIDE 0.9% 500 ML IV ONE (06:07)
[2024-11-05] MEDS ORDERED: POLYETHYLENE (MIRALAX) 17 GM PACK PO PRN (06:07)
[2024-11-05] MEDS: TRIMETHOPRIM/POLYMYXIN B OP SCH (07:51)
[2024-11-05] MEDS: ENOXAPARIN INJ 40 MG/0.4 ML SYR SQ SCH (07:51)
[2024-11-05] MEDS: ASCORBIC ACID 500 MG TAB PO SCH (07:51)
[2024-11-05] MEDS: LACTATED RINGER'S 1,000 ML IV SCH (07:52)
[2024-11-05] MEDS: PIPERACILLIN/TAZOBACTAM 4.5 GM/100 ML BAG IV SCH (07:52)
[2024-11-05 08:03] LABS: Cdiff Toxin B Gene (2yr or >) Negative Cdiff Gene (Neg)
[2024-11-05] MEDS ORDERED: Nursing to Pharmacy Communication SCH (08:15)
[2024-11-05] MEDS ORDERED: HEPARIN 100 UNIT/ML 5ML FLUSH FLUSH PRN (08:59)
[2024-11-05] MEDS: ACETAMINOPHEN 325 MG TAB PO PRN (09:02)
--- NOTE | 2024-11-05 09:07 | Pharmacy Report ---
Pharmacy PK ABX Note - Date of Service November 05, 2024 - Assessment and Plan Assessment 64 year old M receiving vancomycin/Zosyn for treatment of neutropenic fever status post immunotherapy 10/30 for lymphoma. Pertinent microbiologic data includes: blood cultures pending. Day # 1 of antimicrobial therapy. Plan Vancomycin * Loading dose: 2250 mg IV x 1 * Maintenance dose: 1500 mg IV every 12 hours * Regimen is predicted to achieve target AUC/ARCHANA of 400-600 mg/L.hr * Random level ordered for: 11/07/24 with AM labs Pharmacy will continue to follow and will adjust dose/frequency as necessary. Thank you. Pharmacy has transitioned to AUC monitoring for vancomycin. AUC/ARCHANA is the preferred PK/PD target and is associated with decreased risk of nephrotoxicity compared to traditional trough targets.
--- NOTE | 2024-11-05 09:18 | Hospitalist Progress Note ---
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 Patient still appears to be sick looking today. He denies having any type of appetite. Patient sees an oncologist, Dr. Ortiz, at [place] and Dr. Farris. Patient was tested positive for COVID but is showing no respiratory symptoms. Patient was diagnosed with a bacterial conjunctivitis which is being treated with an a ntibiotic eyedrop. With being immunocompromised, will continue antibiotics until blood cultures come back otherwise. #Fever in neutropenic patient - Dx with angioimmunoblastic lymphoma on 10/17 - Currently still febrile (37.8C) - may be due to COVID vs gastroenteritis, or bacterial conjunctivitis - WBC 0.79, Neut. 0.45, lymph. 0.14, mono. 0.04 - CXR unremarkable, CT abd without apparent acute process - blood cx pending - c diff negative - continue antibiotic eye drops q2h for 3 days (ordered same medication as prescribed by eye doctor) - continue zosyn and vanc pending cultures - neutropenic precautions - IVF 80/hr x1 bag #Lymphoma/Splenic mass - 11/04 CT abd showed splenomegaly with a lesion measuring ~13 x 10 mm. Few prominent lymph nodes at lennox hepatis and adjacent to the splenic hilum with the largest measuring 17 mm. - Port placed last Sunday. First and only dose of immunotherapy so far was on 10/30. Next scheduled for 11/20 - Abd. pain likely from mass effect of splenic mass - On acetaminophen 650 q4Hr - follows with Dr Hodges with local oncology #Transaminitis - on admission; AST 71, ALT 89, Tbili 1.5 - no acute process noted on CTAP - has had mild transaminitis on prior labs dating back to 02/2024 and at that time hep B and C negative, hemochromatosis tested and negative, HAKEEM+ - will continue to monitor given very mild but if worsening could consider further evaluation #COVID - Tested positive in the ED but asymptomatic except for chronic cough since June. Treatment not needed at this point Aortic Aneurysm/HTN - Low BP on admission- held home amlodipine - Stable pressures currently - f/u with cardiology for surgery VTE ppx: lovenox Diet: starting with clear diet given diarrhea and episode of vomiting, can increase as tolerated Admission and Anticipated Discharge Date Admission Date: November 05, 2024 Supervising Physician Co-Signing Physician Notes I personally examined the patient and verified all mcwilliams points of history and exam, discussed case, and agree with decision making with Dr Murillo seen in f/u from early AM admit. diarrhea. no new/worse cough (same as he's had for months) no sob. no dysuria. no rashes/skin pain. vitals noted nad heent nc at mmm breathing unlabored no accessory muscles good effort skin no rashes no pallor or icterus neutropenic fever -diarrhea, Cdiff negative -> suspect viral -given neutropenia - continue to follow clinically/serial exams/serial hx, follow cultures, continue vanco/zosyn until clearly no bacterial etiology has evolved -overall clinical picture seems most c/w viral illness, covering empirically for bacterial given neutropenia, doubt anything tick borne but continue to follow clinical progress otherwise as above, lovenox for DVT proph Subjective Pt is a 64 yo male with a PMH of 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 Last immunotherapy was 10/30 and is scheduled to receive treatment every 21 days. Ultimate goal is to receive a stem cell transplant next year. Reports that he currently feels warm with left abdominal pain, mild joint pain, lack of appetite, fatigue and cough. Cough has been chronic since June 2024 possibly due to compression of the vagus nerve. Had been alternating between miralax for constipation and Imodium for diarrhea which all started Sunday. Dx with bacterial conjunctivitis Sunday and was given antibiotic eyedrops. Currently not feeling chills, n/v, no SOB, chest pain, problems with urinating or stooling, no hematuria of hematochezia. Notes that he has a history of elevated LFTs but the values have gone down. Patient also states he has a lack of appetite. Review of Systems Review of Systems: per subjective HPI Physical Exam Physical Exam: HEENT: PEERL, no discharge or conjunctivitis, palpable nontender lymph nodes on neck, moist mucous membranes, CV: normal r/r, s1, s2, no r/m/g, radial and distal pulses 2+ b/l Lungs: CTA b/l, no wheezing, no increased WOB Abd: soft, non distended, normal bs, no hepatomegaly, tenderness to palpation on LLQ and LUQ. Results & Data Results & Data Vital Signs (Past 12 Hours) Vital Signs Temp Pulse Pulse Pulse Resp BP BP 11/05/24 07:55 37.8 C H 95 H 15 111/62 11/05/24 06:41 37.2 C 11/05/24 06:17 38.3 C H 88 18 105/65 11/05/24 05:41 86 18 107/67 11/05/24 04:27 37.6 C H 11/05/24 04:24 98 H 23 100/64 11/05/24 03:00 83 25 H 106/61 11/05/24 02:30 93 H 21 112/68 11/05/24 02:15 88 24 114/67 11/05/24 02:00 89 21 118/66 11/05/24 01:30 93 H 24 118/68 11/05/24 01:24 95 H 24 123/70 11/05/24 00:30 100 H 25 H 108/66 11/05/24 00:00 96 H 28 H 117/73 11/04/24 23:30 96 H 22 117/72 11/04/24 22:58 104 H 23 11/04/24 22:58 37.5 C 103 H 18 108/71 11/04/24 22:10 38 C H 109 H 20 104/62 Pulse Ox O2 Del Method 11/05/24 07:55 93 Room Air 11/05/24 06:41 11/05/24 06:17 94 Room Air 11/05/24 05:41 Room Air 11/05/24 04:27 11/05/24 04:24 91 Room Air 11/05/24 03:00 92 Room Air 11/05/24 02:30 97 11/05/24 02:15 93 11/05/24 02:00 92 11/05/24 01:30 93 11/05/24 01:24 98 11/05/24 00:30 96 11/05/24 00:00 91 11/04/24 23:30 91 11/04/24 22:58 94 Room Air 11/04/24 22:58 96 Room Air 11/04/24 22:10 96 Room Air
[2024-11-05] MEDS: VANCOMYCIN HCL 1,500 MG in SODIUM CHLORIDE 0.9% 500 ML IV SCH (10:27)
[2024-11-05] MEDS: HEPARIN 100 UNIT/ML 5ML FLUSH FLUSH PRN (18:01)
[2024-11-05] MEDS: LOPERAMIDE HCL 2 MG CAP PO STA (20:22)
[2024-11-05] MEDS: TAMSULOSIN HCL 0.4 MG CAP PO SCH (20:22)
[2024-11-05] MEDS: MELATONIN 3 MG TAB PO PRN (22:28)
[2024-11-06 08:10] LABS: Hematocrit (blood only) 27.1 % (42.0-52.0); Hemoglobin 9.1 g/dl (14.0-18.0); Mean Corpuscular Hemoglobin 29.6 pg (25.0-34.0); Mean Corpuscular Volume 88.3 fL (80.0-100.0); RDW Standard Deviation 43.8 fL (36.4-46.3); Red Blood Count 3.07 M/uL (4.70-6.10); White Blood Count 0.17 K/ul (4.8-10.8)
[2024-11-06 08:11] LABS: Alanine Aminotransferase 48.0 U/L (7-52); Albumin Globulin Ratio 1.0 (0.9-2); Alkaline Phosphatase 89.0 U/L (34-104); Anion Gap 6.0 (3-11); Bilirubin,Total 1.3 mg/dl (0.2-1.0); Blood Urea Nitrogen 12.0 mg/dl (6-23); Calcium 8.5 mg/dl (8.6-10.3); Carbon Dioxide 25.0 mmol/L (21-32); Chloride 103.0 mmol/L (98-107); Creatinine Clr Calc Pharmacy 147.3 ml/min; Globulin 2.8 gm/dl (2.5-4.0); Glucose 103.0 mg/dl (70-99(Fasting)); Potassium 3.5 mmol/L (3.5-5.1); Sodium 134.0 mmol/L (136-145); Total Protein 5.5 gm/dl (6.0-8.3)
[2024-11-06 08:20] LABS: Platelet Count 85 K/uL (130-400)
[2024-11-06] MEDS: LOPERAMIDE HCL 2 MG CAP PO PRN (09:10)
--- NOTE | 2024-11-06 14:20 | Electrocardiogram Report ---
Test Reason : Blood Pressure : */* mmHG Vent. Rate : 103 BPM Atrial Rate : 103 BPM P-R Int : 164 ms QRS Dur : 76 ms QT Int : 290 ms P-R-T Axes : 46 -9 48 degrees QTcB Int : 379 ms Sinus tachycardia Poor R wave progression, consider anterior KS vs. lead placement vs. LVH Abnormal ECG When compared with ECG of 25-Oct-2024 20:06, No significant change was found Confirmed by Ritesh Balderas ([id number]) on 11/06/2024 2:19:37 PM Referred By: REFERRED SELF Confirmed By: Ritesh Balderas
[2024-11-06] MEDS: DEXTROMETHORPHAN POLYMR COMPLX 30MG/5 ML BTL PO PRN (18:15)
--- NOTE | 2024-11-06 18:21 | Hospitalist Progress Note ---
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 Patient appeared to look a lot better today. He has an increase in his appetite and desired solid food. Patient's temperature was doing well a majority of the day though went up to 39.0 C this afternoon. Patient at first visit didn't complain of abdominal pain but did have abdominal pain on exam. Patient also federico d the nurse the Edinson Dewey weren't working and desired a cream to help with his hemorrhoids. #Fever in neutropenic patient - Dx with angioimmunoblastic lymphoma on 10/17 - Now febrile with 39 C - may be due to COVID vs gastroenteritis, or bacterial conjunctivitis - WBC 0.17, Neut. < 0.50 - CXR unremarkable, CT abd without apparent acute process - blood cx were negative x 24 hours - c diff negative - continue antibiotic eye drops q2h for 3 days (ordered same medication as prescribed by eye doctor) - continue zosyn and vanc pending cultures to see if cultures are negative for x48 hours. - neutropenic precautions - IVF 80/hr x1 bag #Lymphoma/Splenic mass - 11/04 CT abd showed splenomegaly with a lesion measuring ~13 x 10 mm. Few prominent lymph nodes at lennox hepatis and adjacent to the splenic hilum with the largest measuring 17 mm. - Port placed last Sunday. First and only dose of immunotherapy so far was on 10/30. Next scheduled for 11/20 - Abd. pain likely from mass effect of splenic mass - On acetaminophen 650 q4Hr - follows with Dr Hodges with local oncology #Transaminitis - on admission; AST 71, ALT 89, Tbili 1.5 - no acute process noted on CTAP - has had mild transaminitis on prior labs dating back to 02/2024 and at that time hep B and C negative, hemochromatosis tested and negative, HAKEEM+ - will continue to monitor given very mild but if worsening could consider further evaluation #COVID - Tested positive in the ED but asymptomatic except for chronic cough since June. Treatment not needed at this point #Cough - Edinson Dewey did not work. - Ordered Dextromethorphan #Hemorrhoids - Ordered Hydrocortisone %1 cream BID Aortic Aneurysm/HTN - Low BP on admission- held home amlodipine - Stable pressures currently - f/u with cardiology for surgery VTE ppx: lovenox Diet: starting with clear diet given diarrhea and episode of vomiting, can increase as tolerated Admission and Anticipated Discharge Date Admission Date: November 05, 2024 Supervising Physician Co-Signing Physician Notes I personally examined the patient and verified all mcwilliams points of history and exam, discussed case, and agree with decision making with Dr Murillo feels miserable. Cough worse. Fortunately not short of breath outside of during coughing fits. Clear sputum. Still having some diarrhea. Poor appetite. vitals noted nad heent nc at mmm Coughing a lot more than yesterday, lungs with diffuse scattered rales, no wheezes no rhonchi good effort no accessory muscle use, 97% on room air. Neuro with cranial nerves II through XII grossly intact gross motor and sensory intact. Skin without rashes pallor or icterus. neutropenic fever -diarrhea, Cdiff negative -> suspect viral -given neutropenia - continue to follow clinically/serial exams/serial hx, follow cultures, continue vanco/zosyn until clearly no bacterial etiology has evolved -overall clinical picture seems most c/w viral illness, Suspect his worsening cough and sputum as well as lung findings are a viral pneumoniabut again because he is so profoundly neutropenic continuing to cover empirically with antibiotics, follow cultures. Will get a chest x-ray to look for a more typical infiltrateit would not really casino change attendant now, but may change what we need to do with antibiotics once he is doing well enough for discharge. Severe protein calorie malnutrition she notes about 45 pounds of weight loss over the last several months. Started to discuss nutrition in depth. Appreciate dietitian assistance as well. 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 Patient is currently feeling good. Patient has an appetite now and desired to have solid food. Patient denies N/V, abdominal pain, shortness of breath, and chest pain. He did say that he felt hot off and on. Patient was concerned about his diarrhea. Patient had a cough later in the day and said to the nurse that the Tessalon Perles did not help and desired a cream for his hemorrhoids. Review of Systems Review of Systems: per subjective HPI Physical Exam Constitutional: WD/WN, vitals as above Respiratory: normal respiratory effort, lungs clear to auscultation Cardiovascular: RRR, no murmur, no edema Gastrointestinal (Abdomen): Percussion/Palpation: + abdomen tender (LLQ and LUQ) Psychiatric: Eye Contact: good eye contact Thought Process: linear/logical thought process Results & Data Results & Data Vital Signs (Past 12 Hours) Vital Signs Temp Pulse Resp BP Pulse Ox O2 Del Method 11/06/24 18:02 39.0 C H 94 H 17 128/74 96 Room Air 11/06/24 08:05 Room Air 11/06/24 07:46 36.7 C 90 18 119/73 97 Room Air
--- NOTE | 2024-11-06 19:10 | Billing Data ---
Date of Service November 06, 2024 Coding Level of Care Code 23659 SUB INP/OBS CARE MIN
--- NOTE | 2024-11-06 20:55 | XRay Report ---
EXAM: XR chest 2V PA/lateral CLINICAL HISTORY: cough, rales, infiltrate. TECHNIQUE: X-ray images of the chest were obtained in posteroanterior (PA) and lateral projections. COMPARISON: 11/04/2024. FINDINGS: Pulmonary Parenchyma: No evidence of consolidation, collapse, or focal opacities. No pulmonary nodules identified. No evidence of pleural effusion or pleural thickening. Heart and Mediastinum: Heart size and shape are normal. Bilateral hilas appear bulky and lobulated raising concern for hilar lymphadenopathy/lesion. Bony Thorax: Bony thorax appears intact without fractures or deformities. Soft Tissues: Soft tissues overlying the chest wall are unremarkable. IMPRESSION: No acute collapse, consolidation or significant pulmonary infiltration. Bilateral hilas appear bulky and lobulated raising concern for lymphadenopathy/lesion. (stable) Stability on comparison. Clinical correlation and CT chest are advised to rule out the possibility. Electronically signed by Aguilar Canas 11-06-2024 8:55 PM
[2024-11-06] MEDS: HYDROCORTISONE 1% CRM 30 GM TUBE EXT PRN (20:57)
[2024-11-07] MEDS: ONDANSETRON INJ 2 MG/ML 2 ML VIAL IV PRN (02:26)
[2024-11-07] MEDS: METOCLOPRAMIDE HCL INJ 5 MG/ML 2 ML VIAL IV STA (03:47)
[2024-11-07 06:48] LABS: Hematocrit (blood only) 27.2 % (42.0-52.0); Hemoglobin 9.3 g/dl (14.0-18.0); Mean Corpuscular Hemoglobin 30.3 pg (25.0-34.0); Mean Corpuscular Volume 88.6 fL (80.0-100.0); Platelet Count 69 K/uL (130-400); RDW Standard Deviation 44.0 fL (36.4-46.3); Red Blood Count 3.07 M/uL (4.70-6.10); White Blood Count 0.12 K/ul (4.8-10.8)
[2024-11-07 07:03] LABS: Alanine Aminotransferase 35.0 U/L (7-52); Albumin Globulin Ratio 1.0 (0.9-2); Alkaline Phosphatase 88.0 U/L (34-104); Anion Gap 5.0 (3-11); Bilirubin,Total 1.3 mg/dl (0.2-1.0); Blood Urea Nitrogen 10.0 mg/dl (6-23); Calcium 8.7 mg/dl (8.6-10.3); Carbon Dioxide 25.0 mmol/L (21-32); Chloride 102.0 mmol/L (98-107); Creatinine Clr Calc Pharmacy 137.1 ml/min; Globulin 2.9 gm/dl (2.5-4.0); Glucose 132.0 mg/dl (70-99(Fasting)); Potassium 3.7 mmol/L (3.5-5.1); Sodium 132.0 mmol/L (136-145); Total Protein 5.8 gm/dl (6.0-8.3)
--- NOTE | 2024-11-07 09:43 | Pharmacy Report ---
Pharmacy PK ABX Note - Date of Service November 07, 2024 - Assessment and Plan Assessment 11/07: Reviewed vancomycin level this AM, slightly subtherapeutic AUC/ARCHANA predicted, will increase dose slightly. Blood cultures negative x48 hours, Covid positive on 11/04/24. Patient with diarrhea, shortness of breath, and cough. Tmax 39C over 24 hours, hospitalists suspect viral gastroenteritis/Covid causing symptoms, but still profoundly neutropenic (ANC <50) and febrile will continue antibiotics for now. 11/05: 64 year old M receiving vancomycin/Zosyn for treatment of neutropenic fever status post immunotherapy 10/30 for lymphoma. Pertinent microbiologic data includes: blood cultures pending. Day # 1 of antimicrobial therapy. Plan Vancomycin * Loading dose: 2250 mg IV x 1 * Maintenance dose: 1750 mg IV every 12 hours * Regimen is predicted to achieve target AUC/ARCHANA of 400-600 mg/L.hr * Random level to be ordered if continued beyond the next 48 hours. Pharmacy will continue to follow and will adjust dose/frequency as necessary. Thank you. Pharmacy has transitioned to AUC monitoring for vancomycin. AUC/ARCHANA is the preferred PK/PD target and is associated with decreased risk of nephrotoxicity compared to traditional trough targets.
[2024-11-07] MEDS: VANCOMYCIN HCL 1,750 MG in SODIUM CHLORIDE 0.9% 500 ML IV SCH (09:49)
[2024-11-07] MEDS: KETOROLAC TROMETHAMINE 10 MG TABLET PO PRN (16:27)
--- NOTE | 2024-11-07 17:31 | Hospitalist Progress Note ---
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 Patient appeared to look better today than yesterday. Patient's temperature was doing well a majority of the day but spiked 2 times to 37.6 and 37.8. Patient still has abdominal pain on exam. Due to the blood cultures coming back negative after two days, most likely a viral infection. However, will continue with antibiotic treatment until fevers stop and neutrophil and WBC count trend upwards. Patient has no more cough. #Fever in neutropenic patient - Dx with angioimmunoblastic lymphoma on 10/17 - Now febrile with 39 C - may be due to COVID vs gastroenteritis, or bacterial conjunctivitis - WBC 0.12, Neut. < 0.50 - CXR unremarkable, CT abd without apparent acute process - blood cx were negative x 48 hours - c diff negative - continue antibiotic eye drops q2h for 3 days (ordered same medication as prescribed by eye doctor) - continue zosyn and vanc until patient stops having fevers and neutrophils and WBC start to trend up. - neutropenic precautions - IVF 80/hr x1 bag #Lymphoma/Splenic mass - 11/04 CT abd showed splenomegaly with a lesion measuring ~13 x 10 mm. Few prominent lymph nodes at lennox hepatis and adjacent to the splenic hilum with the largest measuring 17 mm. - Port placed last Sunday. First and only dose of immunotherapy so far was on 10/30. Next scheduled for 11/20 - Abd. pain likely from mass effect of splenic mass - On acetaminophen 650 q4Hr - Continued home medication of oxycodone - Ordered Toradol for pain in between his oxycodone doses - follows with Dr Hodges with local oncology #Transaminitis - on admission; AST 71, ALT 89, Tbili 1.5 - no acute process noted on CTAP - has had mild transaminitis on prior labs dating back to 02/2024 and at that time hep B and C negative, hemochromatosis tested and negative, HAKEEM+ - will continue to monitor given very mild but if worsening could consider further evaluation #COVID - Tested positive in the ED but asymptomatic except for chronic cough since June. Treatment not needed at this point #Cough - Tessalon Perles did not work. - Ordered Dextromethorphan. Worked #Hemorrhoids - Ordered Hydrocortisone %1 cream BID #Diarrhea -Continue Imodium if still having diarrhea tomorrow. Aortic Aneurysm/HTN - Low BP on admission- held home amlodipine - Stable pressures currently - f/u with cardiology for surgery VTE ppx: lovenox Diet: starting with clear diet given diarrhea and episode of vomiting, can increase as tolerated Admission and Anticipated Discharge Date Admission Date: November 05, 2024 Supervising Physician Co-Signing Physician Notes I personally examined the patient and verified all mcwilliams points of history and exam, discussed case, and agree with decision making with Dr Murillo cough better belly hurts worse. diffuse lower abdomen. cough less no sob. is eating a little better. vitals noted nad heent nc at mmm no significant cough breathing unlabored no accessory muscles good effort skin no rashes no pallor or icterus abd soft mod distention mild diffuse lower tenderness no guarding no rebound. Neuro with cranial nerves II through XII grossly intact gross motor and sensory intact. Skin without rashes pallor or icterus. neutropenic fever -diarrhea, Cdiff negative -> suspect viral -given neutropenia - continue to follow clinically/serial exams/serial hx, follow cultures, continue vanco/zosyn until clearly no bacterial etiology has evolved -since it would be hard to r/o clinically (myalgias, fevers, low wbc/plt and had transaminitis) - while i doubted tick borne - sent peripheral smear - no inclusions for anaplasma or babesia -overall clinical picture seems most c/w viral illness, still febrile - d/w pt and that while i've rarely found remdesivir be helpful i've also seen little to no significant ADRs (maybe mild transaminitis) and so while i doubt it would be "game changing", since he has no immune system and continues to have persistent fevers and "wandering misery" of his viral syndrome possibly it might hasten some degree of improvement. they agree that risks/benefits favor a trial Severe protein calorie malnutrition he notes about 45 pounds of weight loss over the last several months. ongiong discussions of nutrition in depth. Appreciate dietitian assistance as well. 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 Patient is feeling okay. He feels a bit better today then he did yesterday. He said he had a rough night and he felt nauseous. He thinks it was due to eating sweet things and his acid reflux. Patient is still having diarrhea but no nausea or vomiting this morning. Patient had a cough yesterday but after taking the dexatromethorphan, his cough subsided. Patient is drinking well and denies any shortness of breath. Review of Systems Review of Systems: per subjective HPI Physical Exam Constitutional: WD/WN, vitals as above Respiratory: normal respiratory effort and able to speak in complete sentences Auscultation: + rales (mild in RLL) Cardiovascular: Rate/Rhythm: regular rate and regular rhythm Heart Sounds: normal S1, normal S2 and + murmur (systolic) Gastrointestinal (Abdomen): Percussion/Palpation: + abdomen tender (throughout but worse on left side.) Results & Data Results & Data Vital Signs (Past 12 Hours) Vital Signs Temp Pulse Resp BP Pulse Ox O2 Del Method 11/07/24 07:47 37.8 C H 103 H 18 98/62 L 94 Room Air 11/07/24 05:54 37.1 C
--- NOTE | 2024-11-07 17:48 | Billing Data ---
Date of Service November 07, 2024 Coding Level of Care Code 32614 SUB INP/OBS CARE MIN
[2024-11-07] MEDS: REMDESIVIR 200 MG in SODIUM CHLORIDE 0.9% 210 ML IV STA (19:27)
[2024-11-08 06:48] LABS: Hematocrit (blood only) 24.7 % (42.0-52.0); Hemoglobin 8.4 g/dl (14.0-18.0); Mean Corpuscular Hemoglobin 29.9 pg (25.0-34.0); Mean Corpuscular Volume 87.9 fL (80.0-100.0); Platelet Count 41 K/uL (130-400); RDW Standard Deviation 42.8 fL (36.4-46.3); Red Blood Count 2.81 M/uL (4.70-6.10); White Blood Count 0.19 K/ul (4.8-10.8)
[2024-11-08 06:54] LABS: Alanine Aminotransferase 25.0 U/L (7-52); Albumin Globulin Ratio 1.0 (0.9-2); Alkaline Phosphatase 73.0 U/L (34-104); Anion Gap 6.0 (3-11); Bilirubin,Total 0.9 mg/dl (0.2-1.0); Blood Urea Nitrogen 15.0 mg/dl (6-23); Calcium 8.4 mg/dl (8.6-10.3); Carbon Dioxide 23.0 mmol/L (21-32); Chloride 103.0 mmol/L (98-107); Creatinine Clr Calc Pharmacy 88.9 ml/min; Globulin 2.8 gm/dl (2.5-4.0); Glucose 130.0 mg/dl (70-99(Fasting)); Potassium 3.7 mmol/L (3.5-5.1); Sodium 132.0 mmol/L (136-145); Total Protein 5.5 gm/dl (6.0-8.3)
[2024-11-08] MEDS: PIPERACILLIN/TAZOBACTAM 4.5 GM/100 ML BAG IV SCH (10:51)
--- NOTE | 2024-11-08 11:41 | Hospitalist Progress Note ---
Date of Service November 08, 2024 Assessment & Plan (1) Fever and neutropenia: Plan: - Dx with angioimmunoblastic lymphoma on 10/17 - Now febrile with 39 C - may be due to COVID vs gastroenteritis, or bacterial conjunctivitis - WBC 0.12, Neut. < 0.50 - CXR unremarkable, CT abd without apparent acute process - blood cx were negative x 48 hours - c diff negative - continue antibiotic eye drops q2h for 3 days (ordered same medication as prescribed by eye doctor) - continue zosyn and vanc until patient stops having fevers and neutrophils and WBC start to trend up. - neutropenic precautions - Pt still with temp 39.0 overnight 11/08 (2) Splenic mass: Plan: - 11/04 CT abd showed splenomegaly with a lesion measuring ~13 x 10 mm. Few prominent lymph nodes at lennox hepatis and adjacent to the splenic hilum with the largest measuring 17 mm. - Port placed last Sunday. First and only dose of immunotherapy so far was on 10/30. Next scheduled for 11/20 - Abd. pain likely from mass effect of splenic mass - On acetaminophen 650 q4Hr - Continued home medication of oxycodone - Ordered Toradol for pain in between his oxycodone doses - follows with Dr Hodges with local oncology (3) Transaminitis: Plan: - on admission; AST 71, ALT 89, Tbili 1.5 - no acute process noted on CTAP - has had mild transaminitis on prior labs dating back to 02/2024 and at that time hep B and C negative, hemochromatosis tested and negative, HAKEEM+ - will continue to monitor given very mild but if worsening could consider f urther evaluation (4) Ascending aorta dilatation: Plan: -stable (5) COVID: Plan: + test in ER asymptomatic Plan Pt is a 64 yo male with a PMH of 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 Patient appeared to look better today than yesterday. Patient's temperature was doing well a majority of the day but spiked 2 times to 37.6 and 37.8. Patient still has abdominal pain on exam. Due to the blood cultures coming back negative after two days, most likely a viral infection. However, will continue with antibiotic treatment until fevers stop and neutrophil and WBC count trend upwards. Patient has no more cough. Admission and Anticipated Discharge Date Admission Date: November 05, 2024 Subjective Pt had temp of 39.0 last night. Pt states he feels better this am. Review of Systems Review of Systems: CONST: Negative for fever, body aches and chills. HENT: Negative for neck pain/stiffness, headache, congestion, sore throat, swelling. EYES: Negative for discharge/pain or vision changes. RESP: Negative for cough/hemoptysis and shortness of breath. CV: Negative chest pain, difficulty breathing, palpitations. ABD: Negative pain, nausea, vomiting. : Negative increase frequency, dysuria, blood in urine or stool. MUSC: Negative for muscle aches, edema. SKIN: Negative rash, lesions/sores. NEURO: Negative headache, dizziness, weakness. Physical Exam Physical Exam: GENERAL APPEARANCE NAD, activity normal for age, well developed/ well nourished, no cyanosis, pallor, or diaphoresis. EYES lids/conjunctiva normal. EARS/NOSE/THROAT Mucous membranes moist, nares normal, lips/teeth normal uvula midline without oral pharyngeal erythema, exudate or swelling TMs normal bilaterally. No lymphangitis/lymphedema. HEAD/NECK normocephalic atraumatic, no facial trauma, neck is supple. RESPIRATORY respiratory effort normal, speaks in full sentences, no tripod position, no accessory muscle use. Lungs clear to auscultation without rhonchi, wheezes, rales CARDIAC Regular rate and rhythm, no edema. ABDOMINAL Soft, ND/NT. No evidence of fluid wave. No pulsatile masses on exam, rebound tenderness, Vazquez sign or pain over Mcburney's point. MUSCLES/EXTREMITIES No abnormal range of motion, no swelling. SKIN Warm, pink and dry. No rashes, dermatoses, petechiae or lesions. NEUROLOGICAL Speech is clear and appropriate. Normal level of consciousness. Gait and coordination are normal. 5/5 strength in all extremities. PSYCH Normal mood and affect. Judgement/competence is appropriate Results & Data Results & Data Vital Signs (Past 12 Hours) Vital Signs Temp Pulse Resp BP Pulse Ox O2 Del Method 11/08/24 07:49 36.9 C 99 H 16 100/61 94 Room Air 11/08/24 07:25 Room Air 11/08/24 01:30 115 H 96 Room Air 11/08/24 01:26 37.2 C 20 107/64 PG Care Time/CCT Total # of Minutes Spent Total Time Spent with Patient: Total time spent is greater than 50% in coordination of care (as documented) at patient's floor/unit and/or counseling patient: Coding Level of Care Code 28739 SUB INP/OBS CARE 2/35MIN Diagnoses Fever and neutropenia D70.9; R50.81 Splenic mass R16.1 Transaminitis R74.01 Ascending aorta dilatation I77.810 COVID U07.1
[2024-11-08] MEDS: REMDESIVIR 100 MG in SODIUM CHLORIDE 0.9% 230 ML IV SCH (17:30)
[2024-11-09 05:13] LABS: Anion Gap 7.0 (3-11); Blood Urea Nitrogen 27.0 mg/dl (6-23); Calcium 8.3 mg/dl (8.6-10.3); Carbon Dioxide 21.0 mmol/L (21-32); Chloride 102.0 mmol/L (98-107); Creatinine Clr Calc Pharmacy 33.2 ml/min; Glucose 101.0 mg/dl (70-99(Fasting)); Potassium 3.4 mmol/L (3.5-5.1); Sodium 130.0 mmol/L (136-145)
[2024-11-09 05:24] LABS: Hematocrit (blood only) 24.2 % (42.0-52.0); Hemoglobin 7.7 g/dl (14.0-18.0); Mean Corpuscular Hemoglobin 28.9 pg (25.0-34.0); Mean Corpuscular Volume 91.0 fL (80.0-100.0); Platelet Count 51 K/uL (130-400); RDW Standard Deviation 44.8 fL (36.4-46.3); Red Blood Count 2.66 M/uL (4.70-6.10); White Blood Count 0.42 K/ul (4.8-10.8)
--- NOTE | 2024-11-09 09:13 | Pharmacy Report ---
Pharmacy PK ABX Note - Date of Service November 09, 2024 - Assessment and Plan Assessment 11/09: * Vancomycin level this AM was significantly supratherapeutic at 32.4 mcg/mL. Patient has GAYATRI with SCr going from 0.72 mg/dL on Sunday to 2.97 mg/dL this AM. Vancomycin doses will need held for entire day today. Will recheck a vanc level in the morning. Would recommend avoiding combination of Vancomycin and Zosyn at this point given their concomitant risk of nephrotoxicity. Will reach out to attending. * Remains on Zosyn q8h. Today is last day of Remdesivir for positive COVID test. Remains febrile and neutropenic. Blood cultures with no growth to date. * ID has been consulted. 11/07: Reviewed vancomycin level this AM, slightly subtherapeutic AUC/ARCHANA predicted, will increase dose slightly. Blood cultures negative x48 hours, Covid positive on 11/04/24. Patient with diarrhea, shortness of breath, and cough. Tmax 39C over 24 hours, hospitalists suspect viral gastroenteritis/Covid causing symptoms, but still profoundly neutropenic (ANC <50) and febrile will continue antibiotics for now. 11/05: 64 year old M receiving vancomycin/Zosyn for treatment of neutropenic fever status post immunotherapy 10/30 for lymphoma. Pertinent microbiologic data includes: blood cultures pending. Day #1 of abx therapy. Plan Vancomycin * Current regimen: 1750 mg IV every 12 hours * Random level obtained 11/09/24 resulted as 32.4 mcg/mL. This is significantly supratherapeutic. * Hold all further vancomycin doses for today. * Repeat random level ordered for: 11/10/24 Pharmacy will continue to follow and will adjust dose/frequency as necessary. Thank you. Pharmacy has transitioned to AUC monitoring for vancomycin. AUC/ARCHANA is the preferred PK/PD target and is associated with decreased risk of nephrotoxicity compared to traditional trough targets.
[2024-11-09] MEDS: POTASSIUM CHLORIDE CRTAB 20 MEQ TABCR PO STA (09:14)
--- NOTE | 2024-11-09 10:48 | Hospitalist Progress Note ---
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 < 0.50 - CXR unremarkable, CT abd without apparent acute process - blood cx were negative x 48 hours - c diff negative - continue antibiotic eye drops q2h for 3 days (ordered same medication as prescribed by eye doctor) - continue zosyn and vanc until patient stops having fevers and neutrophils and WBC start to trend up. - neutropenic precautions - pt still having temp of 38.1, likely 2nd to COVID, no obvious bacterial source - Vancomycin d/c'd, plan on discontinuing Zosyn in am 11/10 - ID consulted to see on 11/10 - if no further imput by ID, consider discharging home (2) Splenic mass: Plan: - 11/04 CT abd showed splenomegaly with a lesion measuring ~13 x 10 mm. Few prominent lymph nodes at lennox hepatis and adjacent to the splenic hilum with the largest measuring 17 mm. - Port placed last Sunday. First and only dose of immunotherapy so far was on 10/30. Next scheduled for 11/20 - Abd. pain likely from mass effect of splenic mass - On acetaminophen 650 q4Hr - Continued home medication of oxycodone - Ordered Toradol for pain in between his oxycodone doses - follows with Dr Hodges with local oncology (3) Transaminitis: Plan: - on admission; AST 71, ALT 89, Tbili 1.5 - no acute process noted on CTAP - has had mild transaminitis on prior labs dating back to 02/2024 and at that time hep B and C negative, hemochromatosis tested and negative, HAKEEM+ - will continue to monitor given very mild but if worsening could consider further evaluation (4) Ascending aorta dilatation: Plan: -stable (5) COVID: Plan: + test in ER asymptomatic Plan Pt is a 64 yo male with a PMH of 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 Patient appeared to look better today than yesterday. Patient's temperature was doing well a majority of the day but spiked 2 times to 37.6 and 37.8. Patient still has abdominal pain on exam. Due to the blood cultures coming back negative after two days, most likely a viral infection. However, will continue with a ntibiotic treatment until fevers stop and neutrophil and WBC count trend upwards. Patient has no more cough. Admission and Anticipated Discharge Date Admission Date: November 05, 2024 Subjective Pt had temp of 38.1 last night. He states over the past month after starting im munotherapy he has been getting a similar temperature. He states he feels back to his baseline. Review of Systems Review of Systems: CONST: Negative for fever, body aches and chills. HENT: Negative for neck pain/stiffness, headache, congestion, sore throat, swelling. EYES: Negative for discharge/pain or vision changes. RESP: Negative for cough/hemoptysis and shortness of breath. CV: Negative chest pain, difficulty breathing, palpitations. ABD: Negative pain, nausea, vomiting. : Negative increase frequency, dysuria, blood in urine or stool. MUSC: Negative for muscle aches, edema. SKIN: Negative rash, lesions/sores. NEURO: Negative headache, dizziness, weakness. Physical Exam Physical Exam: GENERAL APPEARANCE NAD, activity normal for age, well developed/ well nourished, no cyanosis, pallor, or diaphoresis. EYES lids/conjunctiva normal. EARS/NOSE/THROAT Mucous membranes moist, nares normal, lips/teeth normal uvula midline without oral pharyngeal erythema, exudate or swelling TMs normal bilaterally. No lymphangitis/lymphedema. HEAD/NECK normocephalic atraumatic, no facial trauma, neck is supple. RESPIRATORY respiratory effort normal, speaks in full sentences, no tripod position, no accessory muscle use. Lungs clear to auscultation without rhonchi, wheezes, rales CARDIAC Regular rate and rhythm, no edema. ABDOMINAL Soft, ND/NT. No evidence of fluid wave. No pulsatile masses on exam, rebound tenderness, Vazquez sign or pain over Mcburney's point. MUSCLES/EXTREMITIES No abnormal range of motion, no swelling. SKIN Warm, pink and dry. No rashes, dermatoses, petechiae or lesions. NEUROLOGICAL Speech is clear and appropriate. Normal level of consciousness. Gait and coordination are normal. 5/5 strength in all extremities. PSYCH Normal mood and affect. Judgement/competence is appropriate Results & Data Results & Data Vital Signs (Past 12 Hours) Vital Signs Temp Pulse Resp BP Pulse Ox O2 Del Method 11/09/24 09:36 36.8 C 11/09/24 07:34 38.1 C H 100 H 16 123/61 96 Room Air 11/09/24 07:20 Room Air PG Care Time/CCT Total # of Minutes Spent Total Time Spent with Patient: Total time spent is greater than 50% in coordination of care (as documented) at patient's floor/unit and/or counseling patient: Coding Level of Care Code 77894 SUB INP/OBS CARE 2/35MIN Diagnoses Fever and neutropenia D70.9; R50.81 Splenic mass R16.1 Transaminitis R74.01 Ascending aorta dilatation I77.810 COVID U07.1
[2024-11-09] MEDS: SODIUM CHLORIDE 0.9% 500 ML IV ONE ×2 (13:55→14:38)
[2024-11-09 17:34] LABS: Hematocrit (blood only) 24.3 % (42.0-52.0); Hemoglobin 8.2 g/dl (14.0-18.0); Mean Corpuscular Hemoglobin 30.3 pg (25.0-34.0); Mean Corpuscular Volume 89.7 fL (80.0-100.0); Platelet Count 80 K/uL (130-400); RDW Standard Deviation 44.8 fL (36.4-46.3); Red Blood Count 2.71 M/uL (4.70-6.10); White Blood Count 0.96 K/ul (4.8-10.8)
[2024-11-09 17:49] LABS: Anion Gap 10.0 (3-11); Blood Urea Nitrogen 31.0 mg/dl (6-23); Calcium 8.4 mg/dl (8.6-10.3); Carbon Dioxide 19.0 mmol/L (21-32); Chloride 104.0 mmol/L (98-107); Creatinine Clr Calc Pharmacy 23.6 ml/min; Glucose 147.0 mg/dl (70-99(Fasting)); Potassium 3.6 mmol/L (3.5-5.1); Sodium 133.0 mmol/L (136-145)
[2024-11-09] MEDS: SODIUM CHLORIDE 0.9% 1,000 ML IV ONE (17:49)
[2024-11-09] MEDS: SODIUM CHLORIDE 0.9% 1,000 ML IV SCH (21:34)
--- NOTE | 2024-11-09 23:42 | Communication Note ---
Date of Service: November 09, 2024 Alerted by staff that pt upset that oxycodone order was discontinued, has LLQ/LUQ and suprapubic abdominal pain. Pt has cancer and had oxycodone 5mg at home to take for pain that worked well. Pt reports since that was taken away he has had significant pain. Went to bedside to assess patient. Pt resting comfortably, BP systolic 90-100s, O2 sat ok on RA only. I discussed with pt that persistent low blood pressures all day make opioid use very treacherous. Pt voices understanding but and while does say if he were to need invasive measures such as dialysis he would do it, he does also hint that quality of life is important to him and the pain is making him quite miserable and has been unrelieved by other agents at this time, and he notes best relief with opioids. Pt does not clinically look fluid overloaded at time of my examination, lungs sound clear. I will do 500 mL bolus NSS + small dose of 2.5 mg po oxycodone, pt is in agreement with this plan. MAPs have been acceptable this evening. Can repeat bolus as needed. Pt not reportedly acutely worse tonight, just worse due to the withdrawal higher level pain control (opioids). Will also do some albumin 50g of 25%. BP was greater that 100 systolic at time of exam. Resident Activity Tracking Resident Involvement: Resident Care Provided Care Provided: Adult Hospital Medicine
[2024-11-10] MEDS: SODIUM CHLORIDE 0.9% 500 ML IV ONE (00:34)
[2024-11-10] MEDS: ALBUMIN 25% 25 GM/100 ML VIAL IV SCH (00:35)
[2024-11-10 05:00] LABS: Hematocrit (blood only) 25.6 % (42.0-52.0); Hemoglobin 8.1 g/dl (14.0-18.0); Mean Corpuscular Hemoglobin 29.0 pg (25.0-34.0); Mean Corpuscular Volume 91.8 fL (80.0-100.0); Platelet Count 116 K/uL (130-400); RDW Standard Deviation 46.3 fL (36.4-46.3); Red Blood Count 2.79 M/uL (4.70-6.10); White Blood Count 1.51 K/ul (4.8-10.8)
[2024-11-10 05:32] LABS: Anion Gap 11.0 (3-11); Blood Urea Nitrogen 33.0 mg/dl (6-23); Calcium 8.3 mg/dl (8.6-10.3); Carbon Dioxide 19.0 mmol/L (21-32); Chloride 106.0 mmol/L (98-107); Creatinine Clr Calc Pharmacy 20.2 ml/min; Glucose 100.0 mg/dl (70-99(Fasting)); Potassium 3.6 mmol/L (3.5-5.1); Sodium 136.0 mmol/L (136-145)
--- NOTE | 2024-11-10 07:29 | Hospitalist Progress Note ---
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 Patient stable today, however in increasing pain from waist up to chest. Patient afebrile for last 24 hours off acetaminophen. Patient still has abdominal pain on exam. Due to the blood cultures coming back negative after two days, most likely a viral infection. ID consulted, mentioned ok to discontinue antibiotics given negative blood cultures and improved neutropenia. 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 Few prom inent lymph nodes at lennox hepatis and adjacent to the splenic hilum with the largest measuring 17 mm. - Port placed last Sunday. First and only dose of immunotherapy so far was on 10/30. Next scheduled for 11/20 - Abd. pain likely from mass effect of splenic mass - Restarted home medication of oxycodone 5mg BID - Follows with Dr Hodges with local oncology #Transaminitis - on admission; AST 71, ALT 89, Tbili 1.5 - no acute process noted on CTAP - has had mild transaminitis on prior labs dating back to 02/2024 and at that time hep B and C negative, hemochromatosis tested and negative, HAKEEM+ - will continue to monitor given very mild but if worsening could consider further evaluation #COVID - Tested positive in the ED but asymptomatic except for chronic cough since June. Treatment not needed at this point #Cough - Tessalon Perles did not work. - Ordered Dextromethorphan. Worked #Hemorrhoids - Ordered Hydrocortisone %1 cream BID #Diarrhea - 1 episode of diarrhea this morning, use Imodium 2 mg as needed Aortic Aneurysm/HTN - Low BP on admission- held home amlodipine - Pressures currently 90s/60s, ordered 2 boluses of LR - f/u with cardiology for surgery Code status: full code Disposition: med-surg VTE ppx: lovenox Diet: regular Admission and Anticipated Discharge Date Admission Date: November 05, 2024 Supervising Physician Co-Signing Physician Notes Resident Physician Supervision Note: I personally examined the patient and verified all mcwilliams points of history and exam, discussed case, and agree with decision making with Dr. Benson I was present with Dr. Benson during the history and exam. I discussed the case with the resident and agree with the findings and plan as documented in the note. Any exceptions or clarifications are listed here: Patient feels improved. Patient still has worsening renal function. Patient is not having any acidemia or hyperkalemia associated with it. Nephrology has been consulted. Review of ultrasound shows no postobstructive uropathy. Review of CBC and chemistry shows stable leukopenia and anemia but worsening renal function Regarding COVID the patient is not in any respiratory distress but may have COVID effect on his kidneys. All antibiotics have been discontinued and infectious diseases following. Renal is following based upon his worsening renal disease Documented By: Vipul Dunham MD Subjective Mr. Tejeda is a 64 y.o. 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 Today, patient states he is in considerable pain that runs from below his waist up to his chest. Patient also reports diffuse abdominal pain that is worse in the LUQ and LLQ. He was given 2.5mg of Oxycodone yesterday night which helped but wore off over the next few hours. Reports he normally uses 5mg oxycodone twice a day for pain relief. Denies chest pain, dizziness, lightheadedness, SOB. Denies subjective fevers. Patient also states he has dry mouth and has used Biotene which has helped. Reports 1 episode of diarrhea this morning. No other acute complaints. Review of Systems Constitutional: as per Subjective / HPI Physical Exam Constitutional: + ill appearing Respiratory: normal respiratory effort, lungs clear to auscultation normal respiratory effort Auscultation: lungs clear to auscultation bilaterally Cardiovascular: RRR, no murmur, no edema Rate/Rhythm: regular rate Gastrointestinal (Abdomen): Percussion/Palpation: + abdomen tender (diffuse, worse in LLQ and LUQ), abdomen soft and normal to percussion; no guarding and abdomen not rigid Skin: no rashes, warm and dry Psychiatric: A+Ox3, euthymic affect Results & Data Results & Data Vital Signs (Past 12 Hours) Vital Signs Temp Pulse Resp BP Pulse Ox O2 Del Method 11/10/24 04:35 94/56 L 11/10/24 04:29 36.8 C 104 H 18 113/66 98 Room Air 11/10/24 01:00 83/52 L 11/10/24 00:30 95/58 L 11/10/24 00:00 85/48 L 11/09/24 23:28 36.8 C 99 H 18 99/56 L 97 Room Air 11/09/24 23:00 95/62 L 11/09/24 22:30 80/55 L 11/09/24 22:00 87/62 L 11/09/24 21:49 36.8 C 11/09/24 21:26 94 H 18 84/61 L 94 Room Air 11/09/24 21:20 Room Air 11/09/24 20:53 Room Air 11/09/24 20:51 36.6 C 96 H 16 86/49 L 95 Room Air Resident Activity Tracking Resident Involvement: Resident Care Provided Care Provided: Adult [facility]
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
--- NOTE | 2024-11-10 10:07 | Nephrology Consultation ---
Date of Consultation November 10, 2024 Assessment & Plan (1) GAYATRI (acute kidney injury): Non-oliguric. Volume status acceptable. Electrolytes normal. Clinical presentation consistent with ATN (attributed to CT with contrast, Toradol - last dose yesterday AM, infection, and hemodynamic changes - hypotension). 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 Potential future indications were discussed. Medications are appropriate for kidney function. Additional boluses of isotonic fluids have been ordered. Goals is to restore EAV and intravascular volume (MAP ~65). Document strict I/O's. Repeat serum metabolic profile tomorrow AM. (2) Fever and neutropenia: ID consultation pending. Remains on Zosyn. Vancomycin dosing per levels as indicated. Cultures negative. COVID +. (3) COVID: Symptomatic care and management per hospitalist team. (4) Lymphoma: History of Present Illness Reason for Consultation: GAYATRI Requesting Physician: Vipul Dunham MD Attending Physician: Vipul Dunham MD History of Present Illness Mr. Ritesh Tejeda is a 64 year-old male with hypertension, hyperlipidemia, morbid obesity, GERD, BPH, and recent diagnosis of angioimmunoblastic T-cell lymphoma. Francis recently started treatment with BV+CHP (brentuximab vedotin, cyclophosphamide, doxorubicin, and prednisone. He completed his first treatment on October 30. Francis presented to [facility] on November 04 with neutropenic fevers. Evaluation demonstrating +COVID. Francis is being maintained on Zosyn and vancomycin. Serum creatinine ~1.0 mg/dL at baseline. Creatinine was 1.1 mg/dL on November 08 and 2.97 mg/dL on November 09. Creatinine is now 4.88 mg/dL. Serum electrolytes normal. UOP not completely documented but Francis is non-oliguric. CT on admission demonstrated no evidence of obstruction. Urine microscopy is acellular. Francis reports improving symptoms of generalized weakness and fatigue. He has continued to experience low grade fevers and fatigue. He also reports persistent diarrhea. Appetite is fair. He does not have significant fluid retention or edema. His primary complaints is generalized abdominal pain and abdominal bloating. Allergies Allergy/AdvReac Type Severity Reaction Status Date / Time Sulfa (Sulfonamide Allergy Unknown Hives Verified 10/21/24 10:23 Antibiotics) Home Medications Medication Instructions Recorded Confirmed Type aspirin 81 mg capsule 81 mg PO QAM preventative 11/20/22 11/05/24 History multivitamin 1 tab PO QAM 11/20/22 11/05/24 History amlodipine 5 mg tablet 5 mg PO QAM 08/28/23 11/05/24 History ascorbic acid (vitamin C) 250 mg 500 mg PO QAM 08/28/23 11/05/24 History tablet (Vitamin C) icosapent ethyl 1 gram capsule 1 g PO BID 08/28/24 11/05/24 History (Vascepa) pravastatin 20 mg tablet 20 mg PO QAM 08/28/24 11/05/24 History omeprazole 40 mg capsule,delayed 40 mg PO QAM #90 caps 09/16/24 11/05/24 Rx release magnesium 1 tab PO QPM 10/17/24 11/05/24 History tamsulosin 0.4 mg capsule (Flomax) 0.4 mg PO HS 10/17/24 11/05/24 History oxycodone 5 mg tablet 5 mg PO Q6H PRN pain #12 tabs 10/21/24 11/05/24 Rx ondansetron 8 mg disintegrating 8 mg PO Q8 PRN Nausea And Vomiting 11/05/24 11/05/24 History tablet prochlorperazine maleate 10 mg 10 mg PO UD PRN Nausea And Vomiting 11/05/24 11/05/24 History tablet Patient History Medical History (Updated 11/10/24 @ 10:39 by William Marcano, ) Weak urinary stream hx Type 2 diabetes mellitus with obesity pt denies, "never told this" Splenic mass pt unsure about this? Pulmonary nodule History of hypertension Hx of hyperlipidemia Essential tremor Ascending aorta dilatation dilated aortic root 5.1 cm 10/17/24, pt was scheduled for sx at [facility] 10/29/24 "for this, but it had to be pushed back due to my cancer diagnosis" HAKEEM positive 03/2024 - "weakly positive 1:80. Obtained for LFT w/u. No joint pains or rashes to suggest SLE at that time.">per PCP Shortness of breath on exertion pt denies "never had this problem" Hx of lymphoma dx 10/17/24 Hx of hiatal hernia repaired Hx of gastroesophageal reflux (GERD) Actinic keratosis Located to bilateral forearms s/p cryotherapy at [facility] PVCs (premature ventricular contractions) asymptomatic Umbilical hernia without obstruction and without gangrene repaired Osteoarthritis Tubular adenoma of colon hx Hepatomegaly Per 08/2023 liver ultrasound Cholelithiases resolved Hx of renal calculi Right side Surgical History Port-A-Cath in place (10/22/24) Insertion of Access Port with Fluoroscopy left subclavian (Left) - Elie Petersen, DO Hx of cardiac cath (09/25/24) [facility], "preop for sx that was scheduled on his aorta for 10/29/24 at [facility]", no stents H/O umbilical hernia repair (01/23/24) Robotic Assisted Laparoscopic Cholecystectomy, Cholangiogram(Not Applicable) - Elie Petersen, DO s Open Umbilical Hernia Repair(Not Applicable) - lEie Petersen, DO Hx laparoscopic cholecystectomy (01/23/24) Robotic Assisted Laparoscopic Cholecystectomy, Cholangiogram(Not Applicable) - Elie Petersen, DO s Open Umbilical Hernia Repair(Not Applicable) - Elie Petersen, DO Status post laser lithotripsy of ureteral calculus x2 Hx of laparoscopy inguinal hernia mesh removal H/O left cataract extraction Hx of right cataract extraction Hx of cystoscopy History of esophagogastroduodenoscopy (EGD) Hx of colonoscopy 01/2023 S/P laparoscopic fundoplication (2001) Hx of hernia repair left inguinal hernia repair Hx of skin graft (1962) 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3 - skin graft from right leg to right axilla arm area Family History Father Myocardial infarction age 66 Heart disease Sister Cancer Brother Heart disease Other No family history of adverse response to anesthesia Denies family history of Ovarian cancer Prostate cancer Breast cancer Lung cancer Colorectal cancer Social History Smoking Status: Former smoker Tobacco Type: Cigarettes Age Started Using Tobacco: 14; Age Quit Using Tobacco: 46; packs per day: 1; Second Hand Exposure: No; Do You Dip or Chew Tobacco: No; Hx Alcohol Use: Yes Alcohol type: beer and hard liquor Alcohol Intake Frequency: 2-3 x/Week Hx Substance Use: No Preferred Language: Faroese Communication Ability: Effective Visual Impairment: No Limitations Hearing Ability: Normal Home Theater Expert Required: No Beliefs That Will Affect Care: None marital status: Current Living Situation: Spouse current occupational status: employed How many Children do You have: 4 Other Information That Helps Us Care for You: No Feels Safe at Home: Yes Safety Concerns: Feels Safe At This Time Childhood Exposure to Second-Hand Smoke: No Diet: regular caffeine: Yes (soda , coffee ) during the past year weight has: decreased > 10 lbs Dental Care, Regularly: No Physical Activity Frequency: 5-6 Times per Week Seatbelt Use: always Sunscreen Use: No Assistive Devices: None Review of Systems Review of Systems: All systems reviewed & are unremarkable except as noted in HPI & below Constitutional: + fever, + chills, + fatigue and + insom rene Eyes: + problem reported (conjunctival irritat ion and drainage) Ear, Nose, Mouth, Throat: no problem reported Respiratory: + cough, + chest congestion and + dyspne a on exertion Cardiovascular: + edema; no chest pain, no palpitations, no lightheadedness and no syncope Gastrointestinal: + cramping and + diarrhea/loose stools; no blood in stools and no melena Genitourinary: no problem reported Musculoskeletal: no problem reported Integumentary: no problem reported Neurologic: no problem reported Psychiatric: no problem reported Physical Exam Constitutional: + ill appearing; no acute distress Eyes: + conjunctival abnormality and + anicter ic sclerae ENMT: Mouth: oral mucous membranes not dry Neck: normal visual inspection and trachea midline Respiratory: normal respiratory effort Auscultation: lungs clear to auscultation bilaterally and + rhonchi Cardiovascular: Rate/Rhythm: regular rate Heart Sounds: normal S1 and normal S2 Extremities: + pedal edema Musculoskeletal: Extremities: no cyanosis and no clubbing Skin: normal turgor; no lesions Neurologic: Motor/Sensory: no tremor and no asterixis Psychiatric: Orientation: alert and oriented x 3 Results & Data Vital Signs (Past 12 Hours) Vital Signs Temp Pulse Resp BP Pulse Ox O2 Del Method 11/10/24 08:20 36.8 C 90 18 99/64 L 98 Room Air 11/10/24 04:35 94/56 L 11/10/24 04:29 36.8 C 104 H 18 113/66 98 Room Air 07/21/25 01:00 83/52 L 11/10/24 00:30 95/58 L 11/10/24 00:00 85/48 L 11/09/24 23:28 36.8 C 99 H 18 99/56 L 97 Room Air 11/09/24 23:00 95/62 L 11/09/24 22:30 80/55 L Laboratory Results Laboratory Results - last 24 hr 11/09/24 11/10/24 17:22 04:13 WBC 0.96 L* 1.51 L RBC 2.71 L 2.79 L Hgb 8.2 L 8.1 L Hct 24.3 L 25.6 L MCV 89.7 91.8 MCH 30.3 29.0 MCHC 33.7 31.6 L RDW Std Deviation 44.8 46.3 RDW Coeff of Sharita 13.7 13.5 Plt Count 80 L D 116 L MPV 10.9 10.5 Sodium 133 L 136 Potassium 3.6 3.6 Chloride 104 106 Carbon Dioxide 19 L 19 L Anion Gap 10 11 BUN 31 H 33 H Creatinine 4.18 H D 4.88 H* D Est Cr Clr Drug Dosing 23.6 20.2 eGFR 14.92 12.39 BUN/Creatinine Ratio 7.4 L 6.8 L Glucose 147 H 100 H Calcium 8.4 L 8.3 L Troponin I High Sens 6.6 Random Vancomycin 28.2 H* Diagnostic Findings CT abd pelvis IV con only COMPARISON: October 20:12:19 TELESALES MANAGER FINDINGS: The visualized lung bases are clear.Sliding hiatus hernia noted.-stable. Evidence of few prominent lymph nodes at lennox hepatis and adjacent to the splenic hilum.- largest measures 18 mm Multiple prominent non-necrotic lymph nodes are also noted at aortocaval, para-aortic and right common iliac vessels- largest measuring 23 mm The spleen appears enlarged in size and shows a huge heterogeneously enhancing lesion measuring about 13 x 10 mm. Few patchy similar hypodense area are noted in remaining splenic parenchyma as well. The liver is enlarged size (19cm in mid clavicular line)and normal in attenuation. No focal liver lesions are seen. There is no intra or extrahepatic biliary ductal dilatation. Hepatic vasculature is patent. The gallbladder is absent. The pancreas, and adrenal glands are unremarkable. The kidneys are normal in size and attenuation. There is no hydronephrosis or perinephric fat stranding. Few small gravels are noted involving bilateral kidneys The ureters are normal in caliber and no ureteral calculi are seen. The bladder is normal in contour. Pelvic viscera are unremarkable. No focal or diffuse bowel wall thickening or evidence of bowel obstruction is identified. The appendix is visualized in the right lower quadrant and appears within normal limits. Abdominal and pelvic vasculature is patent. No aggressive appearing osseous lesions are identified. Enlarged prostate. IMPRESSION: 1. The spleen appears enlarged in size and shows a huge heterogeneously enhancing lesion measuring about 13 x 10 mm. 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 -stable in size. HPE correlation suggested. 2. Evidence of few prominent lymph nodes at lennox hepatis and adjacent to the splenic hilum.- largest measures 17 mm-stable. 3. Multiple prominent non-necrotic lymph nodes are also noted at aortocaval, para-aortic and right common iliac vessels- -stable. 4. Few small gravels are noted in bilateral kidney-stable. 5. Enlarged prostate.-stable. 6. Hepatomegaly- stable XR chest 2V PA/lateral COMPARISON: 11/04/2024. FINDINGS: Pulmonary Parenchyma: No evidence of consolidation, collapse, or focal opacities. No pulmonary nodules identified. No evidence of pleural effusion or pleural thickening. Heart and Mediastinum: Heart size and shape are normal. Bilateral hilas appear bulky and lobulated raising concern for hilar lymphadenopathy/lesion. Bony Thorax: Bony thorax appears intact without fractures or deformities. Soft Tissues: Soft tissues overlying the chest wall are unremarkable. IMPRESSION: No acute collapse, consolidation or significant pulmonary infiltration. Bilateral hilas appear bulky and lobulated raising concern for lymphadenopathy/lesion. PG Care Time/CCT Total # of Minutes Spent Total Time Spent with Patient: Total time spent is greater than 50% in coordination of care (as documented) at patient's floor/unit and/or counseling patient: Coding Level of Care Code 10081 IN/OBS CONSULT LVL 4,60M Diagnoses GAYATRI (acute kidney injury) N17.9 Fever and neutropenia D70.9; R50.81 COVID U07.1 Lymphoma C85.90
[2024-11-10] MEDS ORDERED: Nursing to Pharmacy Communication SCH (11:00)
[2024-11-10] MEDS: LACTATED RINGER'S 1,000 ML IV ONE ×2 (11:13→16:08)
--- NOTE | 2024-11-10 14:04 | Electrocardiogram Report ---
Test Reason : Blood Pressure : */* mmHG Vent. Rate : 100 BPM Atrial Rate : 100 BPM P-R Int : 174 ms QRS Dur : 82 ms QT Int : 362 ms P-R-T Axes : 24 -6 26 degrees QTcB Int : 466 ms Sinus rhythm with Premature atrial complexes Otherwise normal ECG When compared with ECG of 04-Nov-2024 22:24, Premature atrial complexes are now Present QT has lengthened Confirmed by Peyman Beasley ([id number]) on 11/10/2024 2:04:08 PM Referred By: REFERRED SELF Confirmed By: Peyman Beasley
--- NOTE | 2024-11-10 14:08 | Electrocardiogram Report ---
Test Reason : Blood Pressure : */* mmHG Vent. Rate : 94 BPM Atrial Rate : 94 BPM P-R Int : 170 ms QRS Dur : 84 ms QT Int : 338 ms P-R-T Axes : 32 72 29 degrees QTcB Int : 422 ms Normal sinus rhythm with PACs Consider L arm L leg lead reversal Otherwise Normal ECG When compared with ECG of 09-Nov-2024 17:41, (unconfirmed) Questionable change in QRS axis possibly due to lead reversal Confirmed by Peyman Beasley ([id number]) on 11/10/2024 2:07:38 PM Referred By: REFERRED SELF Confirmed By: Peyman Beasley
[2024-11-10] MEDS: METOCLOPRAMIDE HCL INJ 5 MG/ML 2 ML VIAL IV PRN (16:08)
--- NOTE | 2024-11-10 18:26 | Ultrasound Report ---
EXAM: US renal/blad retro comp CLINICAL HISTORY: Suspect ATN, elevated creatinine levels TECHNIQUE: Real-time grayscale ultrasound examination of the kidneys and urinary bladder were visualized COMPARISON: CT abdomen and pelvis dated 11/05/2024 was reviewed. FINDINGS: Right Kidney: Measures approximately 14.1 cm in length. Normal parenchymal echogenicity with maintained corticomedullary differentiation. Cortical thickness within normal limits. An echogenic focus is noted in the lower pole measuring approximately 5.5 mm, suggestive of a renal calculus. No evidence of hydronephrosis. Left Kidney: Measures approximately 14.7 cm in length. Normal parenchymal echogenicity with maintained corticomedullary differentiation. Cortical thickness within normal limits. Two echogenic foci identified measuring approximately 4.8 mm and 2.6 mm, suggestive of renal calculi. No evidence of hydronephrosis. Urinary Bladder: Partially distended at the time of examination. Apparent thickening of the bladder wall measuring approximately 1.19 cm. No intraluminal calculus or intraluminal echoes identified. Ureteral jets not visualized, likely due to overlying bowel gas. IMPRESSION: 1. Bilateral renal calculi without sonographic evidence of hydronephrosis. Stable findings 2. Partially distended urinary bladder with apparent bladder wall thickening (1.19 cm) suggesting cystitis. 3. Prior CT dated 11/05/2024 demonstrated a hyperdense focus within the urinary bladder, likely representing a calculus. On the current ultrasound examination, no intravesical calculus or echogenic focus is identified. 4. No sonographic evidence of obstructive uropathy. 5. Clinical correlation advised. Electronically signed by Aguilar Canas 11-10-2024 6:23 PM
[2024-11-11 06:37] LABS: ALC (manual) 0.22 K/uL (1.2-3.4); ANC (manual) 2.42 K/uL (1.4-6.5); Dohle Bodies 1+; Hematocrit (blood only) 26.2 % (42.0-52.0); Hemoglobin 8.4 g/dl (14.0-18.0); Mean Corpuscular Hemoglobin 29.1 pg (25.0-34.0); Mean Corpuscular Volume 90.7 fL (80.0-100.0); Platelet Count 217 K/uL (130-400); RDW Standard Deviation 46.6 fL (36.4-46.3); Red Blood Count 2.89 M/uL (4.70-6.10); Toxic Granulation 1+; White Blood Count 3.19 K/ul (4.8-10.8)
[2024-11-11 06:42] LABS: Anion Gap 13.0 (3-11); Calcium 8.3 mg/dl (8.6-10.3); Carbon Dioxide 14.0 mmol/L (21-32); Chloride 108.0 mmol/L (98-107); Potassium 3.4 mmol/L (3.5-5.1); Sodium 135.0 mmol/L (136-145)
[2024-11-11 07:03] LABS: Blood Urea Nitrogen 36.0 mg/dl (6-23); Creatinine Clr Calc Pharmacy 17.0 ml/min; Glucose 93.0 mg/dl (70-99(Fasting))
--- NOTE | 2024-11-11 07:15 | Hospitalist Progress Note ---
Date of Service November 11, 2024 Assessment & Plan (1) Fever and neutropenia: (2) Transaminitis: (3) Ascending aorta dilatation: (4) COVID: Plan Pt is a 64 yo male with a PMH of 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 Patient stable today, however in increasing pain from waist up to chest. Patient afebrile for last 24 hours off acetaminophen. Patient still has abdominal pain on exam. Due to the blood cultures coming back negative after two days, most likely a viral infection. ID consulted, mentioned ok to discontinue antibiotics given negative blood cultures and improved neutropenia. #GAYATRI - Uptrending Cr levels (2.97, 4.18, 4.88 today) indicative of acute kidney injury - Ordered UA and renal US due to uptrending Cr 4.88, evaluate for other etiologies contributing to worsening renal function, results pending - Likely related to supratherapeutic levels of vancomycin previously administered as well as COVID diagnosis - Nephrology team evaluated patient and recommended LR for NAGMA + oral KCL for hypokalemia, administered - Medications reviewed by nephrology team, stated appropriate for kidney function - Repeat metabolic panel daily in AM, no current acidemia or hyperkalemia noted in labs, monitor - Renal US shows no evidence of obstructive uropathy #Fever in neutropenic patient - Dx with angioimmunoblastic lymphoma on 10/17 - Now afebrile with previous fever of 39 C - may be due to COVID vs gastroenteritis, or bacterial conjunctivitis - WBC 1.51 - CXR unremarkable, CT abd without apparent acute process - blood cx were negative x 48 hours - c diff negative - Vancomycin d/c'ed, Zosyn discontinued by ID due to negative blood cultures and improving neutropenia - neutropenic precautions removed as WBC 3.4 increased from previous value of 1.51 and appropriate neutrophil count - Repeat CBC with diff daily to trend WBC count - IVF 80/hr x1 bag #Lymphoma/Splenic mass - 11/04 CT abd showed splenomegaly with a lesion measuring ~13 x 10 mm. Few prominent lymph nodes at lennox hepatis and adjacent to the splenic hilum with the largest measuring 17 mm. - Port placed last Sunday. First and only dose of immunotherapy so far was on 10/30. Next scheduled for 11/20 - Abd. pain likely from mass effect of splenic mass - Restarted home medication of oxycodone 5mg BID, working well - Follows with Dr Hodges with local oncology #Transaminitis - on admission; AST 71, ALT 89, Tbili 1.5 - no acute process noted on CTAP - has had mild transaminitis on prior labs dating back to 02/2024 and at that time hep B and C negative, hemochromatosis tested and negative, HAKEEM+ - will continue to monitor given very mild but if worsening could consider further evaluation #COVID - Tested positive in the ED but asymptomatic except for chronic cough since June. Treatment not needed at this point #Cough - Tessalon Perles did not work. - Ordered Dextromethorphan. Worked #Hemorrhoids - Ordered Hydrocortisone %1 cream BID #Diarrhea - Use Imodium 2 mg as needed Aortic Aneurysm/HTN - Low BP on admission- held home amlodipine - Pressures currently 100s/60s, fluids managed by nephrology - f/u with cardiology for surgery Code status: full code Disposition: med-surg VTE ppx: lovenox Diet: regular Admission and Anticipated Discharge Date Admission Date: November 05, 2024 Supervising Physician Co-Signing Physician Notes Resident Physician Supervision Note: I personally examined the patient and verified all mcwilliams points of history and exam, discussed case, and agree with decision making with Dr. Benson I discussed the case with the resident and agree with the findings and plan as documented in the note. Any exceptions or clarifications are listed here: Patient is seen in the presence of his he is in no particular distress he is not having any significant coughing currently but that he was coughing last evening where he almost vomited. Lungs are clear card exam is regular extremities are without edema Reviewed CBC reviewed chemistry patient is no longer neutropenic Updated at bedside Patient feels improved. Patient still has worsening renal function. Patient is not having any acidemia or hyperkalemia associated with it. Nephrology has been consulted. They feel this is likely ATN it has been situationally affected by antibiotics are less concerned this is COVID associated nephropathy. Continued support with intravenous fluids improvement in CBC. Regarding COVID the patient remains without any respiratory distress. All antibiotics have been discontinued and infectious diseases following. Renal is following based upon his worsening renal disease Documented By: Vipul Dunham MD Subjective Pt is a 64 yo male with a PMH of angioimmunoblastic lymphoma on immunotherapy, ascending aortic aneurysm not yet repaired due to recent cancer dx, ex-smoker, HTN, HLD, and GERD presenting for fever. Today, he states his pain is more controlled. Denies SOB, chest pain. Denies urinary symptoms including dysuria, blood in urine, flank pain. He is able to keep food down. No other acute concerns. Review of Systems Constitutional: as per Subjective / HPI Physical Exam Constitutional: WD/WN, vitals as above Respiratory: normal respiratory effort, lungs clear to auscultation Cardiovascular: RRR, no murmur, no edema Gastrointestinal (Abdomen): Percussion/Palpation: + abdomen tender (generalized diffuse tenderness, worse in LUQ and LLQ) Skin: no rashes, warm and dry Psychiatric: A+Ox3, euthymic affect Results & Data Results & Data Vital Signs (Past 12 Hours) Vital Signs Temp Pulse Pulse Resp BP Pulse Ox O2 Del Method 11/11/24 02:53 36.8 C 87 18 100/63 92 Room Air 11/10/24 23:32 Room Air 11/10/24 23:00 89 11/10/24 22:49 36.9 C 90 18 90/56 L 95 Room Air 11/10/24 20:01 36.7 C 81 18 95/52 L 97 Room Air Resident Activity Tracking Resident Involvement: Resident Care Provided Care Provided: Adult Hospital Medicine
--- NOTE | 2024-11-11 08:11 | Billing Data ---
Date of Service November 11, 2024 Coding Level of Care Code 49502 SUB INP/OBS CARE
[2024-11-11] MEDS: LACTATED RINGER'S 1,000 ML IV SCH (10:13)
[2024-11-11] MEDS: POTASSIUM CHLORIDE CRTAB 20 MEQ TABCR PO STA (10:13)
--- NOTE | 2024-11-11 10:29 | Nephrology Progress Note ---
Date of Service November 11, 2024 Assessment & Plan (1) GAYATRI (acute kidney injury): Plan: Non-oliguric. UOP not fully documented - Francis relates that he will be able to collect urine now that diarrhea has resolved. His volume status is reasonable - appetite slightly decreased + 1 loose stool this AM. IVF will be continued to encourage slightly positive fluid balance and restore intravascular volume. Hypotension persists. Electrolytes are acceptable, mild hypokalemia and AG+NAGMA. Clinical presentation consistent with ATN (iodinated contrast, Toradol, vancomycin, infection, and hypotension). AIN or COVAN much less likely. Urine has been acellular. 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 Potential future indications were discussed. Medications are appropriate for kidney function. IV NSS switched to LR for NAGMA. Oral KCl provided for hypokalemia. Regular diet. Document strict I/O's. Repeat serum metabolic profile tomorrow AM. (2) Fever and neutropenia: Plan: WBC reconstituting. COVID +. Culture negative. Antibiotics held. Afebrile X ~24 hours. (3) COVID: Plan: Symptomatic care and management per hospitalist team. (4) Lymphoma: Admission and Anticipated Discharge Date Admission Date: November 05, 2024 Subjective No acute events overnight. Francis was seen and evaluated with his present this AM. He is sitting comfortably in bedside chair. He feels reasonably well. Diarrhea and abdominal discomfort are improving. Appetite is fair. He continues to report good urine output. He denies fluid retention or edema. He is breathing comfortably. He denies chest pains or palpitations. Orthostatic lightheadedness persists. No syncope or presyncope. No fevers or chills in ~24 hours. Review of Systems Review of Systems: All systems reviewed & are unremarkable except as noted in HPI & below Physical Exam Constitutional: well developed; no acute distress Eyes: + anicteric sclerae ENMT: Mouth: oral mucous membranes not dry Neck: normal visual inspection and trachea midline Respiratory: normal respiratory effort Auscultation: lungs clear to auscultation bilaterally Cardiovascular: Rate/Rhythm: regular rate Heart Sounds: normal S1 and normal S2 Extremities: + pedal edema Musculoskeletal: Extremities: no cyanosis and no clubbing Skin: normal turgor; no lesions Neurologic: Motor/Sensory: no tremor and no asterixis Psychiatric: Orientation: alert and oriented x 3 Results & Data Vital Signs (Past 12 Hours) Vital Signs Temp Pulse Pulse Pulse Resp BP Pulse Ox 11/11/24 08:59 102/61 11/11/24 07:30 36.9 C 106 H 20 101/76 96 11/11/24 02:53 36.8 C 87 18 100/63 92 11/10/24 23:32 11/10/24 23:00 89 11/10/24 22:49 36.9 C 90 18 90/56 L 95 O2 Del Method 11/11/24 08:59 11/11/24 07:30 Room Air 11/11/24 02:53 Room Air 11/10/24 23:32 Room Air 11/10/24 23:00 11/10/24 22:49 Room Air Laboratory Results Laboratory Results - last 24 hr 11/11/24 05:32 WBC 3.19 L RBC 2.89 L Hgb 8.4 L Hct 26.2 L MCV 90.7 MCH 29.1 MCHC 32.1 RDW Std Deviation 46.6 H RDW Coeff of Sharita 14.0 Plt Count 217 D MPV 9.7 Neutrophils % (Manual) 76 Lymphocytes % (Manual) 7 Monocytes % (Manual) 10 Basophils % (Manual) 1 Metamyelocytes % (Man) 5 Myelocytes % (Man) 1 Neutrophils # (Manual) 2.42 Total Absolute Neuts 2.42 Lymphocytes # (Manual) 0.22 L Total Abs Lymphocytes 0.22 L Monocytes # (Manual) 0.32 Basophils # (Manual) 0.03 Metamyelocytes # (Man) 0.16 H Myelocytes # (Manual) 0.03 H Toxic Granulation 1+ Dohle Bodies 1+ Sodium 135 L Potassium 3.4 L Chloride 108 H Carbon Dioxide 14 L Anion Gap 13 H BUN 36 H Creatinine 5.95 H* D Est Cr Clr Drug Dosing 17.0 eGFR 9.77 BUN/Creatinine Ratio 6.1 L Glucose 93 Calcium 8.3 L Diagnostic Findings US renal/blad retro comp COMPARISON: CT abdomen and pelvis dated 11/05/2024 was reviewed. FINDINGS: Right Kidney: Measures approximately 14.1 cm in length. Normal parenchymal echogenicity with maintained corticomedullary differentiation. Cortical thickness within normal limits. An echogenic focus is noted in the lower pole measuring approximately 5.5 mm, suggestive of a renal calculus. No evidence of hydronephrosis. Left Kidney: Measures approximately 14.7 cm in length. Normal parenchymal echogenicity with maintained corticomedullary differentiation. Cortical thickness within normal limits. Two echogenic foci identified measuring approximately 4.8 mm and 2.6 mm, suggestive of renal calculi. No evidence of hydronephrosis. Urinary Bladder: Partially distended at the time of examination. Apparent thickening of the bladder wall measuring approximately 1.19 cm. No intraluminal calculus or intraluminal echoes identified. Ureteral jets not visualized, likely due to overlying bowel gas. IMPRESSION: 1. Bilateral renal calculi without sonographic evidence of hydronephrosis. Stable findings 2. Partially distended urinary bladder with apparent bladder wall thickening (1.19 cm) suggesting cystitis. 3. Prior CT dated 11/05/2024 demonstrated a hyperdense focus within the urinary bladder, likely representing a calculus. On the current ultrasound examination, no intravesical calculus or echogenic focus is identified. 4. No sonographic evidence of obstructive uropathy. PG Care Time/CCT Total # of Minutes Spent Total Time Spent with Patient: Total time spent is greater than 50% in coordination of care (as documented) at patient's floor/unit and/or counseling patient: Coding Level of Care Code 17071 SUB INP/OBS CARE 3/50MIN Diagnoses GAYATRI (acute kidney injury) N17.9 Fever and neutropenia D70.9; R50.81 COVID U07.1 Lymphoma C85.90
--- NOTE | 2024-11-11 15:36 | Billing Data ---
Date of Service November 11, 2024 Coding Level of Care Code 10217 SUB INP/OBS CARE MIN
[2024-11-11] MEDS: SODIUM BICARBONATE 650 MG TAB PO SCH (17:20)
--- NOTE | 2024-11-11 17:35 | Billing Data ---
Date of Service November 05, 2024 Coding Level of Care Code 15489 INT INP/OBS CARE
[2024-11-11 18:00] LABS: Anion Gap 10.0 (3-11); Blood Urea Nitrogen 36.0 mg/dl (6-23); Calcium 8.3 mg/dl (8.6-10.3); Carbon Dioxide 15.0 mmol/L (21-32); Chloride 108.0 mmol/L (98-107); Creatinine Clr Calc Pharmacy 15.2 ml/min; Glucose 111.0 mg/dl (70-99(Fasting)); Potassium 3.8 mmol/L (3.5-5.1); Sodium 133.0 mmol/L (136-145)
--- NOTE | 2024-11-11 19:42 | XRay Report ---
INDICATION: Abdominal pain TECHNIQUE: Portable supine upright view radiograph of the abdomen was obtained. COMPARISON: CT abdomen pelvis November 05, 2024 FINDINGS: Mildly air-distended colon is seen with apparent partial effacement of the haustral markings. No significantly air distended loops of small bowel identified. The stomach does not appear to be distended. The bowel gas pattern is overall nonobstructive. Evaluation for free air is limited due to supine technique IMPRESSION: Mildly air-distended colon is seen with apparent partial effacement of the haustral markings. This finding may be seen with colitis. No radiographic evidence of small bowel obstruction. Electronically signed by Roel Blount 11-11-2024 7:42 PM
[2024-11-11] MEDS ORDERED: HEPARIN SOD 5,000 UNIT/0.5 ML VIAL SQ SCH (21:00)
[2024-11-12 03:20] LABS: Appearance Urine Turbid (Clear); Epithelial Cell Urine Auto 0-2 /hpf (0-2); Glucose Urine UA Negative (Negative); WBC Urine Automated 21-50 /hpf (0-5)
[2024-11-12 03:43] LABS: RBC Urine Automated 0-2 /hpf (0-2)
[2024-11-12 03:44] LABS: Bacteria Urine Automated 1+ (None Seen)
[2024-11-12 06:20] LABS: Hematocrit (blood only) 24.5 % (42.0-52.0); Hemoglobin 8.1 g/dl (14.0-18.0); Mean Corpuscular Hemoglobin 29.8 pg (25.0-34.0); Mean Corpuscular Volume 90.1 fL (80.0-100.0); Platelet Count 277 K/uL (130-400); RDW Standard Deviation 46.7 fL (36.4-46.3); Red Blood Count 2.72 M/uL (4.70-6.10); White Blood Count 5.40 K/ul (4.8-10.8)
[2024-11-12 06:36] LABS: Alanine Aminotransferase 11.0 U/L (7-52); Albumin Globulin Ratio 1.0 (0.9-2); Alkaline Phosphatase 70.0 U/L (34-104); Anion Gap 10.0 (3-11); Bilirubin,Total 0.5 mg/dl (0.2-1.0); Blood Urea Nitrogen 38.0 mg/dl (6-23); Calcium 8.2 mg/dl (8.6-10.3); Carbon Dioxide 16.0 mmol/L (21-32); Chloride 110.0 mmol/L (98-107); Creatinine Clr Calc Pharmacy 13.4 ml/min; Globulin 2.5 gm/dl (2.5-4.0); Glucose 99.0 mg/dl (70-99(Fasting)); Potassium 3.6 mmol/L (3.5-5.1); Sodium 136.0 mmol/L (136-145); Total Protein 5.0 gm/dl (6.0-8.3)
[2024-11-12 07:09] LABS: Dohle Bodies 1+; Polychromasia 2+; Toxic Granulation 1+
--- NOTE | 2024-11-12 07:39 | Hospitalist Progress Note ---
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 #GAYATRI - Uptrending Cr levels (2.97, 4.18, 4.88, 6.68, 7.58 today) indicative of acute kidney injury - Ordered UA and renal US due to uptrending Cr 4.88, evaluate for other etiologies contributing to worsening renal function - UA shows +LE, increased WBC count, trace ketones; cultures pending - Likely related to supratherapeutic levels of vancomycin previously administered as well as COVID diagnosis - Nephrology team evaluated patient and recommended LR for NAGMA + oral KCL for hypokalemia, administered, continue - Medications reviewed by nephrology team, stated appropriate for kidney function - Repeat metabolic panel daily in AM, no current acidemia or hyperkalemia noted in labs, monitor - Renal US shows no evidence of obstructive uropathy - Bedside bladder scan performed 11/11 which showed about 150mL of urine, decided to straight cath patient due to clinical presentation, no urine output on straight catheterization - KUB ordered 11/11 due to new history of inability to urinate, could be due to urinary obstruction due to ATN or constipation that is manifesting as looser stools; results show mildly air distended colon, apparent partial effacement of haustral markings, maybe consistent with colitis, no evidence of SBO #Fever in neutropenic patient - Dx with angioimmunoblastic lymphoma on 10/17 - Now afebrile with previous fever of 39 C - may be due to COVID vs gastroenteritis, or bacterial conjunctivitis - WBC 1.51 - CXR unremarkable, CT abd without apparent acute process - blood cx were negative x 48 hours - c diff negative - Vancomycin d/c'ed, Zosyn discontinued by ID due to negative blood cultures and improving neutropenia - neutropenic precautions removed as WBC 3.4 increased from previous value of 1.51 and appropriate neutrophil count, WBC 11/12 5.4 - IVF 80/hr x1 bag #Lymphoma/Splenic mass - 11/04 CT abd showed splenomegaly with a lesion measuring ~13 x 10 mm. Few prominent lymph nodes at lennox hepatis and adjacent to the splenic hilum with the largest measuring 17 mm. - Port placed last Sunday. First and only dose of immunotherapy so far was on 10/30. Next scheduled for 11/20 - Abd. pain likely from mass effect of splenic mass - Restarted home medication of oxycodone 5mg BID, working well - Follows with Dr Hodges with local oncology #Transaminitis - on admission; AST 71, ALT 89, Tbili 1.5 - no acute process noted on CTAP - has had mild transaminitis on prior labs dating back to 02/2024 and at that time hep B and C negative, hemochromatosis tested and negative, HAKEEM+ - will continue to monitor given very mild but if worsening could consider further evaluation #COVID - Tested positive in the ED but asymptomatic except for chronic cough since June. Treatment not needed at this point #Cough - Tessalon Perles did not work. - Ordered Dextromethorphan. Worked #Hemorrhoids - Ordered Hydrocortisone %1 cream BID #Diarrhea - Use Imodium 2 mg as needed #Aortic Aneurysm/HTN - Low BP on admission- held home amlodipine - Pressures currently 90-100s/60s, fluids managed by nephrology - f/u with cardiology for surgery Code status: full code Disposition: med-surg VTE ppx: Heparin 5000 units Diet: regular Admission and Anticipated Discharge Date Admission Date: November 05, 2024 Supervising Physician Co-Signing Physician Notes Resident Physician Supervision Note: I personally examined the patient and verified all mcwilliams points of history and exam, discussed case, and agree with decision making with Dr. Benson I discussed the case with the resident and agree with the findings and plan as documented in the note. Any exceptions or clarifications are listed here: no particular distress he is not having any significant coughing currently but that he was coughing last evening where he almost vomited. Lungs are clear card exam is regular extremities are without edema Reviewed CBC reviewed chemistry, elevated Cr discussed case with neprhology Patient feels improved. Patient still has worsening renal function. Patient is not having any acidemia or hyperkalemia associated with it. Nephrology has been consulted, on bicard, no need for TOBACCO CUTTER at the moment. They feel this is likely ATN it has been situationally affected by antibiotics are less concerned this is COVID associated nephropathy. Continued support with intravenous fluids improvement in CBC. Regarding COVID the patient remains without any respiratory distress. All antibiotics have been discontinued and infectious diseases following. 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 Patient states his pain is well controlled on current pain regimen. States his bowel movements are still loose but improved since yesterday. Denies SOB, chest pain. His main concern is that he is not able to produce large volume of urine. Yesterday he was not able to produce urine the whole day, until 2am last night. States it feels as if he needs to urinate but is not able to. No other acute concerns. Review of Systems Constitutional: as per Subjective / HPI Physical Exam Constitutional: WD/WN, vitals as above Respiratory: normal respiratory effort, lungs clear to auscultation Cardiovascular: RRR, no murmur, no edema Gastrointestinal (Abdomen): Inspection/Auscultation: normal bowel sounds Percussion/Palpation: + abdomen tender (diffuse abdominal tenderness, worse in LUQ and LLQ) Skin: no rashes, warm and dry Psychiatric: A+Ox3, euthymic affect Results & Data Results & Data Vital Signs (Past 12 Hours) Vital Signs Temp Pulse Pulse Resp BP Pulse Ox O2 Del Method 11/12/24 02:21 37.0 C 88 18 110/64 94 Room Air 11/11/24 23:33 37.0 C 91 H 18 102/60 93 Room Air 11/11/24 21:42 92 H Resident Activity Tracking Resident Involvement: Resident Care Provided Care Provided: Adult Hospital Medicine
[2024-11-12] MEDS: HEPARIN SOD 5,000 UNIT/0.5 ML VIAL SQ SCH (08:06)
[2024-11-12 08:26] LABS: ALC (manual) 0.11 K/uL (1.2-3.4); ANC (manual) 4.32 K/uL (1.4-6.5)
--- NOTE | 2024-11-12 15:21 | Nephrology Progress Note ---
Date of Service November 12, 2024 Assessment & Plan (1) GAYATRI (acute kidney injury): Plan: UOP decreasing. IVF will be continued to encourage slightly positive fluid balance. Hypotension persists. Electrolytes are acceptable. NaHCO3 replacement is being provided for NAGMA. Clinical presentation consistent with ATN (iodinated contrast, Toradol, vancomycin, infection, and hypotension). AIN or COVAN much less likely. Urine has been acellular. Renal US does not demonstrate obstruction. There is no emergent indication for CUSTOMER SUCCESS ADVOCATE. Potential future indications were discussed. Medications are appropriate for kidney function. Regular diet. Document strict I/O's. Repeat serum metabolic profile tomorrow AM. (2) Fever and neutropenia: Plan: WBC improved. No longer neutropenic. Fevers have defervesed. (3) COVID: Plan: Symptomatic care and management per hospitalist team. (4) Lymphoma: Admission and Anticipated Discharge Date Admission Date: November 05, 2024 Subjective No acute events overnight. Decreased urine output noted. No fevers or chills. No fluid retention or edema. Francis reports that it feels a little more difficult for him to empty his urine at this time. Francis continues to have several loose bowel movements daily. He denies melena or hematochezia. Abdominal pain/discomfort improving. Appetite fair. I discussed the plan of care with Dr. Dunham this AM. Review of Systems Review of Systems: All systems reviewed & are unremarkable except as noted in HPI & below Physical Exam Constitutional: well developed; no acute distress Eyes: + anicteric sclerae Neck: normal visual inspection and trachea midline Respiratory: normal respiratory effort Auscultation: lungs clear to auscultation bilaterally Cardiovascular: Rate/Rhythm: regular rate Heart Sounds: normal S1 and normal S2 Extremities: no edema Musculoskeletal: Extremities: no cyanosis and no clubbing Skin: normal turgor; no lesions Neurologic: Motor/Sensory: no tremor and no asterixis Psychiatric: Orientation: alert and oriented x 3 Results & Data Vital Signs (Past 12 Hours) Vital Signs Temp Pulse Pulse Resp BP Pulse Ox O2 Del Method 11/12/24 14:56 86 11/12/24 12:50 92 H 11/12/24 11:09 36.7 C 94 H 18 91/56 L 93 Room Air 11/12/24 07:40 Room Air Laboratory Results Laboratory Results - last 24 hr 07/11/11/24 11/12/24 05:32 17:10 02:40 WBC RBC Hgb Hct MCV MCH MCHC RDW Std Deviation RDW Coeff of Sharita Plt Count MPV Neutrophils % (Manual) Lymphocytes % (Manual) Monocytes % (Manual) Basophils % (Manual) Metamyelocytes % (Man) Myelocytes % (Man) Neutrophils # (Manual) Total Absolute Neuts Lymphocytes # (Manual) Total Abs Lymphocytes Monocytes # (Manual) Basophils # (Manual) Metamyelocytes # (Man) Myelocytes # (Manual) Toxic Granulation Dohle Bodies Polychromasia Sodium 133 L Potassium 3.8 Chloride 108 H Carbon Dioxide 15 L Anion Gap 10 BUN 36 H Creatinine 6.68 H* D Est Cr Clr Drug Dosing 15.2 eGFR 8.50 BUN/Creatinine Ratio 5.4 L Glucose 111 H Calcium 8.3 L Total Bilirubin AST ALT Alkaline Phosphatase Total Protein Albumin Globulin Albumin/Globulin Ratio Urine Color Dark Yellow Urine Appearance Turbid A Urine pH 5.0 Ur Specific [place] 1.024 Urine Protein 1+ H Urine Glucose (UA) Negative Urine Ketones Trace H Urine Blood Negative Urine Nitrite Negative Urine Bilirubin Negative Urine Urobilinogen Negative Ur Leukocyte Esterase 1+ H Urine WBC (Auto) 21-50 H Urine RBC (Auto) 0-2 U Hyaline Cast (Auto) 3-5 H U Epithel Cells (Auto) 0-2 Urine Bacteria (Auto) 1+ H Amorphous Sediment Present A Urine Comment Babesia microti DNA PCR Not Detected 11/12/24 05:49 WBC 5.40 RBC 2.72 L Hgb 8.1 L Hct 24.5 L MCV 90.1 MCH 29.8 MCHC 33.1 RDW Std Deviation 46.7 H RDW Coeff of Sharita 14.4 Plt Count 277 MPV 9.0 L Neutrophils % (Manual) 80 Lymphocytes % (Manual) 2 Monocytes % (Manual) 8 Basophils % (Manual) 1 Metamyelocytes % (Man) 5 Myelocytes % (Man) 4 Neutrophils # (Manual) 4.32 Total Absolute Neuts 4.32 Lymphocytes # (Manual) 0.11 L Total Abs Lymphocytes 0.11 L Monocytes # (Manual) 0.43 Basophils # (Manual) 0.05 Metamyelocytes # (Man) 0.27 H Myelocytes # (Manual) 0.22 H Toxic Granulation 1+ Dohle Bodies 1+ Polychromasia 2+ Sodium 136 Potassium 3.6 Chloride 110 H Carbon Dioxide 16 L Anion Gap 10 BUN 38 H Creatinine 7.58 H* D Est Cr Clr Drug Dosing 13.4 eGFR 7.30 BUN/Creatinine Ratio 5.0 L Glucose 99 Calcium 8.2 L Total Bilirubin 0.5 AST 13 ALT 11 Alkaline Phosphatase 70 Total Protein 5.0 L Albumin 2.5 L Globulin 2.5 Albumin/Globulin Ratio 1.0 Urine Color Urine Appearance Urine pH Ur Specific [place] Urine Protein Urine Glucose (UA) Urine Ketones Urine Blood Urine Nitrite Urine Bilirubin Urine Urobilinogen Ur Leukocyte Esterase Urine WBC (Auto) Urine RBC (Auto) U Hyaline Cast (Auto) U Epithel Cells (Auto) Urine Bacteria (Auto) Amorphous Sediment Urine Comment Babesia microti DNA PCR PG Care Time/CCT Total # of Minutes Spent Total Time Spent with Patient: Total time spent is greater than 50% in coordination of care (as documented) at patient's floor/unit and/or counseling patient: Coding Level of Care Code 91481 SUB INP/OBS CARE 3/50MIN Diagnoses GAYATRI (acute kidney injury) N17.9 Fever and neutropenia D70.9; R50.81 COVID U07.1 Lymphoma C85.90
--- NOTE | 2024-11-12 15:37 | Billing Data ---
Date of Service November 12, 2024 Coding Level of Care Code 71699 SUB INP/OBS CARE
[2024-11-12] MEDS ORDERED: HEPARIN SOD 5,000 UNIT/0.5 ML VIAL SQ SCH (21:00)
[2024-11-13 08:07] LABS: Hematocrit (blood only) 26.7 % (42.0-52.0); Hemoglobin 8.6 g/dl (14.0-18.0); Mean Corpuscular Hemoglobin 29.3 pg (25.0-34.0); Mean Corpuscular Volume 90.8 fL (80.0-100.0); Platelet Count 366 K/uL (130-400); RDW Standard Deviation 47.9 fL (36.4-46.3); Red Blood Count 2.94 M/uL (4.70-6.10); White Blood Count 8.34 K/ul (4.8-10.8)
[2024-11-13 08:33] LABS: Anion Gap 11.0 (3-11); Blood Urea Nitrogen 42.0 mg/dl (6-23); Calcium 8.0 mg/dl (8.6-10.3); Carbon Dioxide 15.0 mmol/L (21-32); Chloride 111.0 mmol/L (98-107); Creatinine Clr Calc Pharmacy 12.0 ml/min; Glucose 101.0 mg/dl (70-99(Fasting)); Potassium 3.6 mmol/L (3.5-5.1); Sodium 137.0 mmol/L (136-145)
--- NOTE | 2024-11-13 09:00 | Billing Data ---
Date of Service November 10, 2024 Coding Level of Care Code 73814 SUB INP/OBS CARE
--- NOTE | 2024-11-13 09:56 | Hospitalist Progress Note ---
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 #GAYATRI - Uptrending Cr levels (2.97, 4.18, 4.88, 6.68, 7.58, 8.38 today) indicative of acute kidney injury - Ordered UA and renal US due to uptrending Cr 4.88, evaluate for other etiologies contributing to worsening renal function - UA shows +LE, increased WBC count, trace ketones; cultures pending - Likely related to combined effect of supratherapeutic levels of vancomycin previously administered, hypotension, IV contrast - Nephrology team evaluated patient and recommended LR for NAGMA + oral KCL for hypokalemia, administered, continue as per nephrology's plan - Medications reviewed by nephrology team, stated appropriate for kidney function - No emergent indication for MANUAL LATHE MACHINIST as per nephrology team - Repeat metabolic panel daily in AM, no current acidemia or hyperkalemia noted in labs, monitor, ordered VBG 11/13 to further evaluate for acidemia - Renal US shows no evidence of obstructive uropathy - Bedside bladder scan performed 11/11 which showed about 150mL of urine, decided to straight cath patient due to clinical presentation, no urine output on straight catheterization - KUB ordered 11/11 due to new history of inability to urinate, could be due to ATN or constipation that is manifesting as looser stools; results show mildly air distended colon, apparent partial effacement of haustral markings, maybe consistent with colitis, no evidence of SBO - 1675 mL of urine output noted in chart, improved #Fever in neutropenic patient - Dx with angioimmunoblastic lymphoma on 10/17 - Now afebrile with previous fever of 39 C - may be due to COVID vs gastroenteritis, or bacterial conjunctivitis - WBC 1.51 - CXR unremarkable, CT abd without apparent acute process - blood cx were negative x 48 hours - c diff negative - Vancomycin d/c'ed, Zosyn discontinued by ID due to negative blood cultures and improving neutropenia - neutropenic precautions removed as WBC increased from previous value of 1.51 and appropriate neutrophil count, WBC 11/13 8.34 - IVF 80/hr x1 bag #Lymphoma/Splenic mass - 11/04 CT abd showed splenomegaly with a lesion measuring ~13 x 10 mm. Few prominent lymph nodes at lennox hepatis and adjacent to the splenic hilum with the largest measuring 17 mm. - Port placed last Sunday. First and only dose of immunotherapy so far was on 10/30. Next scheduled for 11/20 - Abd. pain likely from mass effect of splenic mass - Restarted home medication of oxycodone 5mg BID, working well - Follows with Dr Hodges with local oncology - Ordered Magic Mouthwash to assist with mouth sores - Automatic Presser consult ordered to get nutrition assessment and assist with appetite #Transaminitis - on admission; AST 71, ALT 89, Tbili 1.5 - no acute process noted on CTAP - has had mild transaminitis on prior labs dating back to 02/2024 and at that time hep B and C negative, hemochromatosis tested and negative, HAKEEM+ - will continue to monitor given very mild but if worsening could consider further evaluation #COVID - Tested positive in the ED but asymptomatic except for chronic cough since June. Treatment not needed at this point #Cough - Tessalon Perles did not work. - Ordered Dextromethorphan. Worked #Hemorrhoids - Ordered Hydrocortisone %1 cream BID #Diarrhea - Use Imodium 2 mg as needed #Aortic Aneurysm/HTN - Low BP on admission- held home amlodipine - Pressures currently 90-100s/60s, fluids managed by nephrology - f/u with cardiology for surgery Code status: full code Disposition: med-surg VTE ppx: Heparin 5000 units Diet: regular Admission and Anticipated Discharge Date Admission Date: November 05, 2024 Supervising Physician Co-Signing Physician Notes Resident Physician Supervision Note: I personally examined the patient and verified all mcwilliams points of history and exam, discussed case, and agree with decision making with Dr. Benson I discussed the case with the resident and agree with the findings and plan as documented in the note. Any exceptions or clarifications are listed here: no particular distress he is not having any significant coughing currently but that he was coughing last evening where he almost vomited. Lungs are clear card exam is regular extremities are without edema Reviewed CBC reviewed chemistry, elevated Cr discussed case with nephrology Patient feels improved. 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 Plan is for patient to get MANUAL LATHE MACHINIST and perm cath. WIll consult vascular surgery. IVF are now stopped. Regarding COVID the patient remains without any respiratory distress. However due to his immunosuppression patient continues to require isolartion. All antibiotics have been discontinued and infectious diseases following. 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 Patient states his abdominal pain is well controlled. Reports he was able to urinate 3 times yesterday. Denies blood in urine, new flank pain, or dysuria. He states his appetite has decreased due to decreased taste and mouth sores secondary to his cancer diagnosis. He has tried swishes with baking soda, water, and salt with some relief. Reports one episode of vomiting last night. He states he was eating a piece of meatloaf and it just came right back up. Denies bloody or bilious appearance to vomit. R eports his bowel movements have been improving. Last BM was last night and was still loose but improved in comparison to earlier this week in terms of consistency. Denies SOB, chest pain. No other acute concerns. Review of Systems Constitutional: as per Subjective / HPI Physical Exam Constitutional: WD/WN, vitals as above Respiratory: normal respiratory effort, lungs clear to auscultation Cardiovascular: RRR, no murmur, no edema Gastrointestinal (Abdomen): Inspection/Auscultation: normal bowel sounds Percussion/Palpation: + abdomen tender (diffuse abdominal tenderness, worse in LUQ and LLQ), abdomen soft and normal to percussion; no guarding and abdomen not rigid Skin: no rashes, warm and dry Psychiatric: A+Ox3, euthymic affect Results & Data Results & Data Vital Signs (Past 12 Hours) Vital Signs Temp Pulse Pulse Resp BP BP Pulse Ox 11/13/24 07:34 36.9 C 101 H 18 107/72 95 11/13/24 04:12 36.8 C 94 H 18 120/67 95 11/12/24 23:45 93 H 11/12/24 22:42 36.8 C 91 H 18 122/74 98 O2 Del Method 11/13/24 07:34 Room Air 11/13/24 04:12 Room Air 11/12/24 23:45 11/12/24 22:42 Room Air Resident Activity Tracking Resident Involvement: Resident Care Provided Care Provided: Adult Hospital Medicine
[2024-11-13] MEDS: FIRST - Mouthwash BLM 5 ML UDP PO PRN ×2 (11:31→20:21)
[2024-11-13 11:52] LABS: Base Excess VBG -10.3 mEq/L; HCO3 VBG 16 mmol/L; Oxygen Saturation VBG 73.0 %; PCO2 VBG 33 mmHg (38-50); PO2 VBG 42 mmHg; pH VBG 7.28 (7.36-7.41)
--- NOTE | 2024-11-13 12:24 | Nephrology Progress Note ---
Date of Service November 13, 2024 Assessment & Plan (1) GAYATRI (acute kidney injury): Plan: GAYATRI attributed to ATN (iodinated contrast, Toradol, vancomycin, infection, and hypotension). Unfortunately, no signs of renal recovery. Relatively oliguric with peripheral and scrotal edema. The trajectory of kidney dysfunction suggests that IOS SOFTWARE ENGINEER will be required in the near future. Indications for IOS SOFTWARE ENGINEER were reviewed with Francis and his today. I would ideally advise permcath placement which we cannot coordinate over the weekend. Francis and his expressed understanding and agreement with potential permcath tomorrow assuming this can be coordinated with vascular surgery. Otherwise, we may need to consider a temporary catheter option over the weekend if kidney dysfunction progressess. Thankfully electrolytes are acceptable. Medications are appropriate for kidney function. Stop IVF. Regular diet. Document strict I/O's. Repeat serum metabolic profile tomorrow AM. (2) Fever and neutropenia: Plan: WBC improved. No longer neutropenic. Fevers have defervesced. (3) COVID: Plan: Symptomatic care and management per hospitalist team. Clinically improving. (4) Lymphoma: Plan: 1st treatment with BV-CHP provided October 30. Admission and Anticipated Discharge Date Admission Date: November 05, 2024 Subjective No acute events overnight. Francis was seen and evaluated with his at the bedside. He remains relatively oliguric. Fluid retention (notably peripheral edema in legs and scrotum) is increasing. He denies significant dyspnea. He denies fevers or chills. Appetite is fairly poor. Stools are more formed but still somewhat frequent. He endorses some soreness in his mouth and mild dysphagia which his oncologist advised was a side effect of treatment. Review of Systems Review of Systems: All systems reviewed & are unremarkable except as noted in HPI & below Constitutional: no fever and no chills Eyes: no problem reported Ear, Nose, Mouth, Throat: no problem reported Respiratory: no problem reported Cardiovascular: + edema; no chest pain, no palpitations, no lightheadedness and no syncope Gastrointestinal: + diarrhea/loose stools Genitourinary: + urinary frequency and + scrotal swelli ng; no dysuria, no difficulty urinating or no urinary incontinence Musculoskeletal: no problem reported Integumentary: no problem reported Neurologic: no problem reported Psychiatric: no problem reported Physical Exam Constitutional: well developed; no acute distress Eyes: + anicteric sclerae ENMT: Mouth: oral mucous membranes not dry Neck: normal visual inspection and trachea midline Respiratory: normal respiratory effort Auscultation: lungs clear to auscul tation bilaterally and + rhonchi Cardiovascular: Rate/Rhythm: regular rate Heart Sounds: normal S1 and normal S2 Extremities: + pedal edema; no edema Musculoskeletal: Extremities: no cyanosis and no clubbing Skin: normal turgor; no lesions Neurologic: Motor/Sensory: no tremor and no asterixis Psychiatric: Orientation: alert and oriented x 3 Results & Data Vital Signs (Past 12 Hours) Vital Signs Temp Pulse Resp BP BP Pulse Ox O2 Del Method 11/13/24 10:38 36.8 C 98 H 18 93/50 L 92 Room Air 11/13/24 07:50 Room Air 11/13/24 07:34 36.9 C 101 H 18 107/72 95 Room Air 11/13/24 04:12 36.8 C 94 H 18 120/67 95 Room Air Laboratory Results Laboratory Results - last 24 hr 11/13/24 11/13/24 07:32 11:27 WBC 8.34 RBC 2.94 L Hgb 8.6 L Hct 26.7 L MCV 90.8 MCH 29.3 MCHC 32.2 RDW Std Deviation 47.9 H RDW Coeff of Sharita 14.6 H Plt Count 366 MPV 9.1 L VBG pH 7.28 L VBG pCO2 33 L VBG pO2 42 VBG HCO3 16 VBG O2 Saturation 73.0 VBG Base Excess -10.3 Sodium 137 Potassium 3.6 Chloride 111 H Carbon Dioxide 15 L Anion Gap 11 BUN 42 H Creatinine 8.38 H* D Est Cr Clr Drug Dosing 12.0 eGFR 6.47 BUN/Creatinine Ratio 5.0 L Glucose 101 H Calcium 8.0 L Phosphorus 2.8 Albumin 2.5 L PG Care Time/CCT Total # of Minutes Spent Total Time Spent with Patient: Total time spent is greater than 50% in coordination of care (as documented) at patient's floor/unit and/or counseling patient: Coding Level of Care Code 30137 SUB INP/OBS CARE 3/50MIN Diagnoses GAYATRI (acute kidney injury) N17.9 Fever and neutropenia D70.9; R50.81 COVID U07.1 Lymphoma C85.90
[2024-11-13] MEDS ORDERED: FIRST - Mouthwash BLM 5 ML UDP PO PRN (15:59)
--- NOTE | 2024-11-13 19:04 | Vascular Medicine Consultation ---
Date of Consultation November 13, 2024 Assessment & Plan (1) GAYATRI (acute kidney injury): He will likely ultimately need percutaneous dialysis access. Given his immunosuppression it is probably best to try to place a tunneled dialysis line in a procedural area rather than at the bedside. The only question is whether or not the timing is appropriate relative to his pulmonary symptoms. We will reassess in the morning and if his symptoms appear stable or improving then I think we can proceed with a tunneled dialysis catheter via the right internal jugular vein. Discussed with him and his . All questions were answered. History of Present Illness Reason for Consultation: need for percutaneous dialysis access Attending Physician: Avinash Valdivia History of Present Illness Worsening and progressive renal dysfunction who may be in need of dialysis within the next few days. I was asked to evaluate for placement of long-term dialysis access. He currently has a port on the left side which is used for chemotherapy. He apparently was admitted with COVID 19 pneumonia and tonight is having a fair amount of coughing but he tells me that this is getting better. He has had no previous access on the right that he is aware of. There is no swelling in the right arm. Allergies Allergy/AdvReac Type Severity Reaction Status Date / Time Sulfa (Sulfonamide Allergy Unknown Hives Verified 10/21/24 10:23 Antibiotics) Home Medications Medication Instructions Recorded Confirmed Type aspirin 81 mg capsule 81 mg PO QAM preventative 11/20/22 11/05/24 History multivitamin 1 tab PO QAM 11/20/22 11/05/24 History amlodipine 5 mg tablet 5 mg PO QAM 08/28/23 11/05/24 History ascorbic acid (vitamin C) 250 mg 500 mg PO QAM 08/28/23 11/05/24 History tablet (Vitamin C) icosapent ethyl 1 gram capsule 1 g PO BID 08/28/24 11/05/24 History (Vascepa) pravastatin 20 mg tablet 20 mg PO QAM 08/28/24 11/05/24 History omeprazole 40 mg capsule,delayed 40 mg PO QAM #90 caps 09/16/24 11/05/24 Rx release magnesium 1 tab PO QPM 10/17/24 11/05/24 History tamsulosin 0.4 mg capsule (Flomax) 0.4 mg PO HS 10/17/24 11/05/24 History oxycodone 5 mg tablet 5 mg PO Q6H PRN pain #12 tabs 10/21/24 11/05/24 Rx ondansetron 8 mg disintegrating 8 mg PO Q8 PRN Nausea And Vomiting 11/05/24 11/05/24 History tablet prochlorperazine maleate 10 mg 10 mg PO UD PRN Nausea And Vomiting 11/05/24 11/05/24 History tablet Patient History Medical History (Updated 11/10/24 @ 10:39 by William Marcano DO) Weak urinary stream hx Type 2 diabetes mellitus with obesity pt denies, "never told this" Splenic mass pt unsure about this? Pulmonary nodule History of hypertension Hx of hyperlipidemia Essential tremor Ascending aorta dilatation dilated aortic root 5.1 cm 10/17/24, [place] [facility] [place] "for this, but it had to be pushed back due to my cancer diagnosis" HAKEEM positive 03/2024 - "weakly positive 1:80. Obtained for LFT w/u. No joint pains or rashes to suggest SLE at that time.">per PCP Shortness of breath on exertion pt denies "never had this problem" Hx of lymphoma dx 10/17/24 Hx of hiatal hernia repaired Hx of gastroesophageal reflux (GERD) Actinic keratosis Located to bilateral forearms s/p cryotherapy at [facility] PVCs (premature ventricular contractions) asymptomatic Umbilical hernia without obstruction and without gangrene repaired Osteoarthritis Tubular adenoma of colon hx Hepatomegaly Per 08/2023 liver ultrasound Cholelithiases resolved Hx of renal calculi Right side Surgical History Port-A-Cath in place (10/22/24) Insertion of Access Port with Fluoroscopy left subclavian (Left) - Elie Petersen DO Hx of cardiac cath (09/25/24) [facility] "preop for sx that was scheduled on his aorta for 10/29/24 [place] [facility] no stents H/O umbilical hernia repair (01/23/24) Robotic Assisted Laparoscopic Cholecystectomy, Cholangiogram(Not Applicable) - Elie Petersen DO s Open Umbilical Hernia Repair(Not Applicable) - Elie Petersen DO Hx laparoscopic cholecystectomy (01/23/24) Robotic Assisted Laparoscopic Cholecystectomy, Cholangiogram(Not Applicable) - Elie Petersen, DO s Open Umbilical Hernia Repair(Not Applicable) - Elie Petersen, Status post laser lithotripsy of ureteral calculus x2 Hx of laparoscopy inguinal hernia mesh removal H/O left cataract extraction Hx of right cataract extraction Hx of cystoscopy History of esophagogastroduodenoscopy (EGD) Hx of colonoscopy 01/2023 S/P laparoscopic fundoplication (2001) Hx of hernia repair left inguinal hernia repair Hx of skin graft (1962) 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3 - skin graft from right leg to right axilla arm area Family History Father Myocardial infarction age 66 Heart disease Sister Cancer Brother Heart disease Other No family history of adverse response to anesthesia Denies family history of Ovarian cancer Prostate cancer Breast cancer Lung cancer Colorectal cancer Social History Smoking Status: Former smoker Tobacco Type: Cigarettes Age Started Using Tobacco: 14; Age Quit Using Tobacco: 46; packs per day: 1; Second Hand Exposure: No; Do You Dip or Chew Tobacco: No; Hx Alcohol Use: Yes Alcohol type: beer and hard liquor Alcohol Intake Frequency: 2-3 x/Week Hx Substance Use: No Preferred Language: Iraqi Communication Ability: Effective Visual Impairment: No Limitations Hearing Ability: Normal Paper Pattern Folder Required: No Beliefs That Will Affect Care: None marital status: Current Living Situation: Spouse current occupational status: employed How many Children do You have: 4 Other Information That Helps Us Care for You: No Feels Safe at Home: Yes Safety Concerns: Feels Safe At This Time Childhood Exposure to Second-Hand Smoke: No Diet: regular caffeine: Yes (soda , coffee ) during the past year weight has: decreased > 10 lbs Dental Care, Regularly: No Physical Activity Frequency: 5-6 Times per Week Seatbelt Use: always Sunscreen Use: No Assistive Devices: None Physical Exam Physical Exam: Deferred at this time Results & Data Vital Signs (Past 12 Hours) Vital Signs Temp Pulse Pulse Resp BP BP Pulse Ox 11/13/24 15:02 36.8 C 82 16 116/56 L 95 11/13/24 14:01 95 H 11/13/24 12:31 97 H 11/13/24 10:38 36.8 C 98 H 18 93/50 L 92 11/13/24 07:50 11/13/24 07:34 36.9 C 101 H 18 107/72 95 O2 Del Method 11/13/24 15:02 Room Air 11/13/24 14:01 11/13/24 12:31 11/13/24 10:38 Room Air 11/13/24 07:50 Room Air 11/13/24 07:34 Room Air PG Care Time/CCT Total # of Minutes Spent Total Time Spent with Patient: Total time spent is greater than 50% in coordination of care (as documented) at patient's floor/unit and/or counseling patient: Coding Level of Care Code 80940 INT INP/OBS CARE MIN Diagnoses GAYATRI (acute kidney injury) N17.9
[2024-11-14 06:27] LABS: Hematocrit (blood only) 24.9 % (42.0-52.0); Hemoglobin 8.2 g/dl (14.0-18.0); Mean Corpuscular Hemoglobin 29.8 pg (25.0-34.0); Mean Corpuscular Volume 90.5 fL (80.0-100.0); Platelet Count 361 K/uL (130-400); RDW Standard Deviation 48.7 fL (36.4-46.3); Red Blood Count 2.75 M/uL (4.70-6.10); White Blood Count 9.27 K/ul (4.8-10.8)
--- NOTE | 2024-11-14 07:51 | Hospitalist Progress Note ---
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 #GAYATRI - Uptrending Cr levels (2.97, 4.18, 4.88, 6.68, 7.58, 8.38, 9.07 today) indicative of acute kidney injury, continue to trend - UA shows +LE, increased WBC count, trace ketones; cultures negative - Likely related to combined effect of supratherapeutic levels of vancomycin previously administered + hypotension + IV contrast - Previously on IV fluids per nephro team, IV fluids discontinued 11/14, no emergency indication for dialysis as per nephro team, temp. catheter to be coordinated over the weekend if HD needed - vascular surgery team consulted for port placement, on hold currently, will monitor - Furosemide 40mg 11/14 AM to assist with urine production - Medications reviewed by nephrology team, stated appropriate for kidney function - Repeat metabolic panel daily in AM, no current acidemia or hyperkalemia noted in labs, monitor - VBG shows pH 7.2, CO2 33 - Renal US shows no evidence of obstructive uropathy - Bedside bladder scan performed 11/11 which showed about 150mL of urine, decided to straight cath patient due to clinical presentation, no urine output on straight catheterization - KUB ordered 11/11 due to new history of inability to urinate, could be due to ATN or constipation that is manifesting as looser stools; results show mildly air distended colon, apparent partial effacement of haustral markings, maybe consistent with colitis, no evidence of SBO - 150 cc of urine output 11/13 11pm to 11/14 AM, improving - quick runs of SVT with HR in 200s, asymptomatic, started 12.5 mg BID Metoprolol #Fever in neutropenic patient - Dx with angioimmunoblastic lymphoma on 10/17 - Now afebrile with previous fever of 39 C - may be due to COVID vs gastroenteritis, or bacterial conjunctivitis - WBC 9.27 now, neutropenic precautions removed - CXR unremarkable, CT abd without apparent acute process - blood cx were negative x 48 hours - c diff negative - Vancomycin d/c'ed, Zosyn discontinued by ID due to negative blood cultures and improving neutropenia - IVF 80/hr x1 bag #Lymphoma/Splenic mass - 11/04 CT abd showed splenomegaly with a lesion measuring ~13 x 10 mm. Few prominent lymph nodes at lennox hepatis and adjacent to the splenic hilum with the largest measuring 17 mm. - Port placed last Sunday. First and only dose of immunotherapy so far was on 10/30. Next scheduled for 11/20 - Abd. pain likely from mass effect of splenic mass - Restarted home medication of oxycodone 5mg BID, working well - Follows with Dr Hodges with local oncology - Ordered Magic Mouthwash to assist with mouth sores to use as needed - Cinnamon Grinder consult ordered to get nutrition assessment and assist with appetite #Transaminitis - on admission; AST 71, ALT 89, Tbili 1.5 - no acute process noted on CTAP - has had mild transaminitis on prior labs dating back to 02/2024 and at that time hep B and C negative, hemochromatosis tested and negative, HAKEEM+ - will continue to monitor given very mild but if worsening could consider further evaluation #COVID - Tested positive in the ED but asymptomatic except for chronic cough since June. Treatment not needed at this point #Cough - Tessalon Perles did not work. - Ordered Dextromethorphan. Worked #Hemorrhoids - Ordered Hydrocortisone %1 cream BID #Diarrhea - Use Imodium 2 mg as needed #Aortic Aneurysm/HTN - Low BP on admission- held home amlodipine - Pressures currently 90-100s/60s, fluids managed by nephrology - f/u with cardiology for surgery Code status: full code Disposition: med-surg VTE ppx: Heparin 5000 units Diet: regular Admission and Anticipated Discharge Date Admission Date: November 05, 2024 Supervising Physician Co-Signing Physician Notes Resident Physician Supervision Note: I personally examined the patient and verified all mcwilliams points of history and exam, discussed case, and agree with decision making with Dr. Benson I discussed the case with the resident and agree with the findings and plan as documented in the note. Any exceptions or clarifications are listed here: No particular distress as he is not having any significant coughing currently. Lungs are clear card exam is regular extremities are without edema Reviewed CBC reviewed chemistry, elevated Cr discussed case with nephrology Patient feels about the same, though with intermittent nausea. 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 Patient may need dialysis over the weekend. Regarding COVID the patient remains without any respiratory distress. However due to his immunosuppression patient continues to require isolartion. All antibiotics have been discontinued and infectious diseases following. 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 States his abdominal pain continues to be well-controlled. The Magic Mouthwash has been helping with his mouth sores. Last BM was yesterday night. He states his diarrhea has slowly been improving. Appetite is still low but he is able to keep food down. Denies vomiting episodes. Producing more urine than yesterday. Review of Systems Constitutional: as per Subjective / HPI Physical Exam Constitutional: WD/WN, vitals as above ENMT: oral ulcers in roof of mouth and lower lip Respiratory: normal respiratory effort, lungs clear to auscultation Cardiovascular: RRR, no murmur, no edema Gastrointestinal (Abdomen): Inspection/Auscultation: normal bowel sounds Percussion/Palpation: + abdomen tender (diffuse abdominal tenderness, worse in LUQ and LLQ), abdomen soft and normal to percussion; no guarding and abdomen not rigid Skin: no rashes, warm and dry Psychiatric: A+Ox3, euthymic affect Results & Data Results & Data Vital Signs (Past 12 Hours) Vital Signs Temp Pulse Pulse Resp BP BP Pulse Ox 11/14/24 07:44 36.6 C 105 H 18 133/75 97 11/14/24 03:24 36.7 C 92 H 18 115/71 93 11/13/24 22:55 36.7 C 96 H 18 127/69 95 11/13/24 22:27 11/13/24 21:41 103 H 11/13/24 20:30 119/74 O2 Del Method 11/14/24 07:44 Room Air 11/14/24 03:24 Room Air 11/13/24 22:55 Room Air 11/13/24 22:27 Room Air 11/13/24 21:41 07/24/25 20:30 Resident Activity Tracking Resident Involvement: Resident Care Provided Care Provided: Adult Hospital Medicine
[2024-11-14 07:58] LABS: Anion Gap 10.0 (3-11); Blood Urea Nitrogen 44.0 mg/dl (6-23); Calcium 7.9 mg/dl (8.6-10.3); Carbon Dioxide 16.0 mmol/L (21-32); Chloride 111.0 mmol/L (98-107); Creatinine Clr Calc Pharmacy 11.3 ml/min; Glucose 93.0 mg/dl (70-99(Fasting)); Potassium 3.6 mmol/L (3.5-5.1); Sodium 137.0 mmol/L (136-145)
--- NOTE | 2024-11-14 08:24 | Billing Data ---
Date of Service November 14, 2024 Coding Level of Care Code 46664 SUB INP/OBS CARE MIN
--- NOTE | 2024-11-14 10:17 | Nephrology Progress Note ---
Date of Service November 14, 2024 Assessment & Plan (1) GAYATRI (acute kidney injury): Plan: ATN. Urine output increased slightly. Fluid retention persists. Will provided furosemide 40 mg this AM to encourage urine output. Electrolytes are acceptable. No emergent indication for dialysis at this time. TDC placement has been placed on hold pending additional monitoring. 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 If HD is required over the weekend, temporary catheter placement will be coordinated. For now, monitoring for renal recovery. Medications are appropriate for kidney function. Regular diet. Document strict I/O's. Repeat serum metabolic profile tomorrow AM. (2) COVID: Plan: Clinically improving. (3) Lymphoma: Plan: 1st treatment with BV-CHP completed October 30. LN biopsy scheduled at [facility] next week - Francis is advised that this will likely need to be rescheduleld. Admission and Anticipated Discharge Date Admission Date: November 05, 2024 Subjective No acute events overnight. Francis was seen and evaluated with his at the bedside. I discussed the plan of care with Dr. Lowry. Francis feels reasonably well. Edema unchanged. Urine output increased slightly. Appetite fair. Xerostomia and some swallowing difficulty persist. Some difficulty tolerating NaHCO3. No urinary complaints. Review of Systems Review of Systems: All systems reviewed & are unremarkable except as noted in HPI & below Physical Exam Constitutional: well developed; no acute distress Eyes: + anicteric sclerae ENMT: Mouth: + dry oral mucous membranes Neck: normal visual inspection and trachea midline Respiratory: normal respiratory effort Auscultation: lungs clear to auscultation bilaterally Cardiovascular: Rate/Rhythm: regular rate Heart Sounds: normal S1 and normal S2 Extremities: + edema Musculoskeletal: Extremities: no cyanosis and no clubbing Skin: normal turgor; no lesions Neurologic: Motor/Sensory: no tremor and no asterixis Psychiatric: Orientation: alert and oriented x 3 Results & Data Vital Signs (Past 12 Hours) Vital Signs Temp Pulse Resp BP BP Pulse Ox O2 Del Method 11/14/24 08:51 Room Air 11/14/24 07:44 36.6 C 105 H 18 133/75 97 Room Air 11/14/24 03:24 36.7 C 92 H 18 115/71 93 Room Air 11/13/24 22:55 36.7 C 96 H 18 127/69 95 Room Air 11/13/24 22:27 Room Air Laboratory Results Laboratory Results - last 24 hr 11/13/24 11/14/24 11:27 05:49 WBC 9.27 RBC 2.75 L Hgb 8.2 L Hct 24.9 L MCV 90.5 MCH 29.8 MCHC 32.9 RDW Std Deviation 48.7 H RDW Coeff of Sharita 14.6 H Plt Count 361 MPV 9.0 L VBG pH 7.28 L VBG pCO2 33 L VBG pO2 42 VBG HCO3 16 VBG O2 Saturation 73.0 VBG Base Excess -10.3 Sodium 137 Potassium 3.6 Chloride 111 H Carbon Dioxide 16 L Anion Gap 10 BUN 44 H Creatinine 9.07 H* D Est Cr Clr Drug Dosing 11.3 eGFR 5.89 BUN/Creatinine Ratio 4.9 L Glucose 93 Calcium 7.9 L Phosphorus 3.5 Albumin 2.4 L PG Care Time/CCT Total # of Minutes Spent Total Time Spent with Patient: Total time spent is greater than 50% in coordination of care (as documented) at patient's floor/unit and/or counseling patient: Coding Level of Care Code 40999 SUB INP/OBS CARE 3/50MIN Diagnoses GAYATRI (acute kidney injury) N17.9 COVID U07.1 Lymphoma C85.90
--- NOTE | 2024-11-14 10:40 | Vascular Medicine ProgressNote ---
Date of Service November 14, 2024 Assessment & Plan (1) GAYATRI (acute kidney injury): Plan: Case discussed with Dr. Marcano (Nephrology). We agree that he is not in need of acute dialysis at this time. His trajectory of renal insufficiency is trending down. As such we will hold off on tunneled dialysis catheter at this time, and reconsider on Sunday. If he requires urgent dialysis over the weekend can have temporary percutaneous line placed and then reassess for conversion to tunneled line. All in agreement. Admission and Anticipated Discharge Date Admission Date: November 05, 2024 Subjective Overall feeling better this AM Physical Exam Physical Exam: No significant clinical change. Results & Data Vital Signs (Past 12 Hours) Vital Signs Temp Pulse Resp BP BP Pulse Ox O2 Del Method 11/14/24 08:51 Room Air 11/14/24 07:44 36.6 C 105 H 18 133/75 97 Room Air 11/14/24 03:24 36.7 C 92 H 18 115/71 93 Room Air 11/13/24 22:55 36.7 C 96 H 18 127/69 95 Room Air PG Care Time/CCT Total # of Minutes Spent Total Time Spent with Patient: Total time spent is greater than 50% in coordination of care (as documented) at patient's floor/unit and/or counseling patient: Coding Level of Care Code 16062 SUB INP/OBS CARE 05/17MIN Diagnoses GAYATRI (acute kidney injury) N17.9
[2024-11-14] MEDS: FUROSEMIDE 40 MG/4 ML VIAL IV ONE (11:59)
[2024-11-14] MEDS: METOPROLOL TARTRATE 25 MG TAB PO SCH (15:04)
[2024-11-14 16:44] LABS: Anion Gap 10.0 (3-11); Blood Urea Nitrogen 44.0 mg/dl (6-23); Calcium 8.1 mg/dl (8.6-10.3); Carbon Dioxide 17.0 mmol/L (21-32); Chloride 110.0 mmol/L (98-107); Creatinine Clr Calc Pharmacy 10.9 ml/min; Glucose 109.0 mg/dl (70-99(Fasting)); Potassium 3.8 mmol/L (3.5-5.1); Sodium 137.0 mmol/L (136-145)
[2024-11-15] MEDS: FIRST - Mouthwash BLM 119 ML PO PRN (00:56)
[2024-11-15 06:44] LABS: Hematocrit (blood only) 26.0 % (42.0-52.0); Hemoglobin 8.7 g/dl (14.0-18.0); Mean Corpuscular Hemoglobin 29.9 pg (25.0-34.0); Mean Corpuscular Volume 89.3 fL (80.0-100.0); Platelet Count 398 K/uL (130-400); RDW Standard Deviation 47.6 fL (36.4-46.3); Red Blood Count 2.91 M/uL (4.70-6.10); White Blood Count 10.08 K/ul (4.8-10.8)
[2024-11-15 07:09] LABS: Anion Gap 9.0 (3-11); Blood Urea Nitrogen 47.0 mg/dl (6-23); Calcium 7.9 mg/dl (8.6-10.3); Carbon Dioxide 17.0 mmol/L (21-32); Chloride 111.0 mmol/L (98-107); Creatinine Clr Calc Pharmacy 10.8 ml/min; Glucose 93.0 mg/dl (70-99(Fasting)); Potassium 3.4 mmol/L (3.5-5.1); Sodium 137.0 mmol/L (136-145)
--- NOTE | 2024-11-15 08:03 | Hospitalist Progress Note ---
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 #GAYATRI - Uptrending Cr levels (2.97, 4.18, 4.88, 6.68, 7.58, 8.38, 9.07, 9.5 today) indicative of acute kidney injury, continue to trend - UA shows +LE, increased WBC count, trace ketones; cultures negative - Likely ATN related to combined effect of supratherapeutic levels of vancomycin previously administered + hypotension + IV contrast - Previously on IV fluids per nephro team, IV fluids discontinued 11/14 - No emergency indication for dialysis as per nephro team, believe he is in recovery mode due to stabilizing Cr, will continue to monitor and record strict I's/O's - Vascular surgery team consulted for port placement, on hold currently - Furosemide 40mg 11/14 AM to assist with urine production - Medications reviewed by nephrology team, stated appropriate for kidney function - Repeat metabolic panel daily in AM, no current acidemia or hyperkalemia noted in labs, monitor - VBG shows pH 7.2, CO2 33 - Renal US shows no evidence of obstructive uropathy - Bedside bladder scan performed 11/11 which showed about 150mL of urine, decided to straight cath patient due to clinical presentation, no urine output on straight catheterization - KUB ordered 11/11 due to new history of inability to urinate, likely due to ATN or constipation that is manifesting as looser stools; results show mildly air distended colon, apparent partial effacement of haustral markings, maybe consistent with colitis, no evidence of SBO - 665 cc of urine output 11/14 PM to 11/15 AM, improving - quick runs of SVT with HR in 200s on 11/14, asymptomatic, started 12.5 mg BID Metoprolol #Fever in neutropenic patient - Dx with angioimmunoblastic lymphoma on 10/17 - Now afebrile with previous fever of 39 C - may be due to COVID vs gastroenteritis, or bacterial conjunctivitis - WBC 9.27 now, neutropenic precautions removed - CXR unremarkable, CT abd without apparent acute process - blood cx were negative x 48 hours - c diff negative - Vancomycin d/c'ed, Zosyn d/c'ed by ID due to negative blood cultures and improving neutropenia - IVF 80/hr x1 bag #Lymphoma/Splenic mass - 11/04 CT abd showed splenomegaly with a lesion measuring ~13 x 10 mm. Few prominent lymph nodes at lennox hepatis and adjacent to the splenic hilum with the largest measuring 17 mm. - Port placed last Sunday. First and only dose of immunotherapy so far was on 10/30. Next scheduled for 11/20 - Abd. pain likely from mass effect of splenic mass - Restarted home medication of oxycodone 5mg BID, working well - Follows with Dr Hodges with local oncology - Ordered Magic Mouthwash to assist with mouth sores to use as needed - Cloth Measurer consult ordered to get nutrition assessment and assist with appetite #Transaminitis - on admission; AST 71, ALT 89, Tbili 1.5 - no acute process noted on CTAP - has had mild transaminitis on prior labs dating back to 02/2024 and at that time hep B and C negative, hemochromatosis tested and negative, HAKEEM+ - will continue to monitor given very mild but if worsening could consider further evaluation #COVID - Tested positive in the ED but asymptomatic except for chronic cough since June. Treatment not needed at this point #Cough - Tessalon Perles did not work. - Ordered Dextromethorphan. Worked #Hemorrhoids - Ordered Hydrocortisone %1 cream BID #Diarrhea - Use Imodium 2 mg as needed #Aortic Aneurysm/HTN - Low BP on admission- held home amlodipine - Pressures currently 90-100s/60s, fluids managed by nephrology - f/u with cardiology for surgery Code status: full code Disposition: med-surg VTE ppx: Heparin 5000 units Diet: regular Admission and Anticipated Discharge Date Admission Date: November 05, 2024 Supervising Physician Co-Signing Physician Notes Resident Physician Supervision Note: I personally examined the patient and verified all mcwilliams points of history and exam, discussed case, and agree with decision making with Dr. Benson I discussed the case with the resident and agree with the findings and plan as documented in the note. Any exceptions or clarifications are listed here: No particular distress as he is not having any significant coughing currently. Lungs are clear card exam is regular extremities are without edema Reviewed CBC reviewed chemistry, elevated Cr discussed case with nephrology Patient feels about the same, though with intermittent nausea. 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 Creatinine appears to be reaching its peak. May not need dialysis over the weekend. Will monitor. Regarding COVID the patient remains without any respiratory distress. However due to his immunosuppression patient continues to require isolation. All antibiotics have been discontinued and infectious diseases following. 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 Patient states he had a rough night last night and was increasingly nauseous with meals + few vomiting episodes. He states he felt weak last night and felt as if he is not getting much nutrition in. Patient received Reglan with no relief but states the Zofran helped. Reports he only had breakfast yesterday. He is attempting to eat breakfast this morning but reports some nausea. Feeling less nauseous than last night. No new vomiting episodes. He is open to trying Boost protein shake today. His urine output has increased. His last BM was today morning and was regular. Abdominal pain is well controlled on current pain regimen. Review of Systems Constitutional: as per Subjective / HPI Physical Exam Constitutional: WD/WN, vitals as above ENMT: erythematous mouth ulcers on roof of mouth and bottom lip Respiratory: normal respiratory effort, lungs clear to auscultation normal respiratory effort Auscultation: lungs clear to auscultation bilaterally Cardiovascular: RRR, no murmur, no edema Rate/Rhythm: regular rate Gastrointestinal (Abdomen): Inspection/Auscultation: normal bowel sounds Percussion/Palpation: + abdomen tender (diffuse abdominal tenderness, worse in LUQ and LLQ), abdomen soft and normal to percussion; no guarding and abdomen not rigid Skin: no rashes, warm and dry Psychiatric: A+Ox3, euthymic affect Results & Data Results & Data Vital Signs (Past 12 Hours) Vital Signs Temp Pulse Pulse Resp BP BP Pulse Ox 11/15/24 08:02 36.8 C 82 18 119/69 96 11/15/24 02:53 36.8 C 83 18 112/65 93 11/14/24 23:45 11/14/24 23:33 36.6 C 80 105/59 L 96 11/14/24 21:50 91 H 11/14/24 20:53 93 H 125/77 96 O2 Del Method 11/15/24 08:02 Room Air 11/15/24 02:53 Room Air 11/14/24 23:45 Room Air 11/14/24 23:33 Room Air 11/14/24 21:50 11/14/24 20:53 Room Air Resident Activity Tracking Resident Involvement: Resident Care Provided Care Provided: Adult Hospital Medicine
--- NOTE | 2024-11-15 09:11 | Nephrology Progress Note ---
Date of Service November 15, 2024 Assessment & Plan (1) GAYATRI (acute kidney injury): Plan: * ATN (multifactorial - CLYDE, NSAID administration, hypotension) * Patient exhibiting early uremic symptoms with nausea. However, Cr has been stable at 9.5 last 24 hours, UO 665 cc last shift. Patient may be entering recovery phase of ATN. 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 Tejeda again this morning. At this time he appears to be on the cusp of recovery. Volume status and electrolyte balance remain acceptable. Continue to hold dialysis. Will obtain BMP in a.m. and monitor I&O's. (2) COVID: Plan: * Clinically improving. (3) Lymphoma: Plan: * Angioimmunoblastic T-cell lymphoma * 1st treatment with BV-CHP completed 10/30/24. LN biopsy scheduled at [facility] next week - Francis is advised that this will likely need to be rescheduled. Admission and Anticipated Discharge Date Admission Date: November 05, 2024 Subjective Mr. Tejeda was seen and evaluated in his hospital room this morning. He reports that he is breathing comfortably on room air flat in bed. Although he is nauseated, he was able to keep down breakfast. He reports urine output has improved slightly. Review of Systems Constitutional: no fever Eyes: no problem reported Ear, Nose, Mouth, Throat: no problem reported Respiratory: no dyspnea Cardiovascular: no chest pain Gastrointestinal: + diarrhea/loose stools; no abdominal pa in Genitourinary: no dysuria Integumentary: no rash Neurologic: no problem reported Physical Exam Constitutional: not in distress Eyes: PERRL, conjunctivae normal, anicteric sclerae ENMT: external ear and nose normal, oropharynx normal Neck: trachea midline, no thyromegaly Respiratory: normal respiratory effort, lungs clear to auscultation Cardiovascular: Rate/Rhythm: regular rate and regular rhythm Extremities: + edema (2+ dependent edema) Gastrointestinal (Abdomen): Inspection/Auscultation: + abdomen distended Percussion/Palpation: abdomen soft; abdomen nontender and no guarding Skin: no rashes, warm and dry Neurologic: no focal motor deficits Results & Data Vital Signs (Past 12 Hours) Vital Signs Temp Pulse Pulse Resp BP BP Pulse Ox 11/15/24 08:02 36.8 C 82 18 119/69 96 11/15/24 02:53 36.8 C 83 18 112/65 93 11/14/24 23:45 11/14/24 23:33 36.6 C 80 105/59 L 96 11/14/24 21:50 91 H O2 Del Method 11/15/24 08:02 Room Air 11/15/24 02:53 Room Air 11/14/24 23:45 Room Air 11/14/24 23:33 Room Air 11/14/24 21:50 Laboratory Results Laboratory Results - last 24 hr 11/14/24 11/15/24 16:10 06:09 WBC 10.08 RBC 2.91 L Hgb 8.7 L Hct 26.0 L MCV 89.3 MCH 29.9 MCHC 33.5 RDW Std Deviation 47.6 H RDW Coeff of Sharita 14.6 H Plt Count 398 MPV 8.8 L Sodium 137 137 Potassium 3.8 3.4 L Chloride 110 H 111 H Carbon Dioxide 17 L 17 L Anion Gap 10 9 BUN 44 H 47 H Creatinine 9.40 H* D 9.55 H* Est Cr Clr Drug Dosing 10.9 10.8 eGFR 5.64 5.53 BUN/Creatinine Ratio 4.7 L 4.9 L Glucose 109 H 93 Lactate 0.8 Calcium 8.1 L 7.9 L Phosphorus 4.0 Albumin 2.5 L PG Care Time/CCT Total # of Minutes Spent Total Time Spent with Patient: Total time spent is greater than 50% in coordination of care (as documented) at patient's floor/unit and/or counseling patient: Coding Level of Care Code 79121 SUB INP/OBS CARE 3/50MIN Diagnoses GAYATRI (acute kidney injury) N17.9 COVID U07.1 Lymphoma C85.90
[2024-11-16 06:19] LABS: Hematocrit (blood only) 25.6 % (42.0-52.0); Hemoglobin 8.4 g/dl (14.0-18.0); Mean Corpuscular Hemoglobin 29.7 pg (25.0-34.0); Mean Corpuscular Volume 90.5 fL (80.0-100.0); Platelet Count 406 K/uL (130-400); RDW Standard Deviation 47.7 fL (36.4-46.3); Red Blood Count 2.83 M/uL (4.70-6.10); White Blood Count 11.20 K/ul (4.8-10.8)
[2024-11-16 07:00] LABS: Anion Gap 10.0 (3-11); Blood Urea Nitrogen 50.0 mg/dl (6-23); Calcium 7.9 mg/dl (8.6-10.3); Carbon Dioxide 17.0 mmol/L (21-32); Chloride 113.0 mmol/L (98-107); Creatinine Clr Calc Pharmacy 10.4 ml/min; Glucose 97.0 mg/dl (70-99(Fasting)); Potassium 3.6 mmol/L (3.5-5.1); Sodium 140.0 mmol/L (136-145)
[2024-11-16 10:03] LABS: Alanine Aminotransferase 8.0 U/L (7-52); Alkaline Phosphatase 79.0 U/L (34-104); Bilirubin,Total 0.4 mg/dl (0.2-1.0); Lipase 26.0 U/L (11-82); Total Protein 4.8 gm/dl (6.0-8.3)
--- NOTE | 2024-11-16 10:04 | XRay Report ---
KUB HISTORY: evaluate for ileus COMPARISON STUDY: 11/11/2024 FINDINGS: There is stable mild diffuse gaseous distention of the colon measuring up to 9 cm. There ar e a few mildly distended gas-filled small bowel loops measuring up to 3.5 cm. No free air seen. IMPRESSION: Appearance of the abdomen suggests ileus. ACT 112: Negative or not required by law. The above report was generated using voice recognition software. It may contain grammatical, syntax o r spelling errors. Electronically signed by: Sonny Gomez M.D. 11/16/2024 10:03 AM
--- NOTE | 2024-11-16 10:44 | Hospitalist Progress Note ---
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 #GAYATRI - Uptrending Cr levels (2.97, 4.18, 4.88, 6.68, 7.58, 8.38, 9.07, 9.55, 9.75 today) indicative of acute kidney injury, continue to trend - UA shows +LE, increased WBC count, trace ketones; cultures negative - Per nephro team, likely ATN related to combined effect of supratherapeutic levels of vancomycin previously administered + hypotension + IV contrast - Previously on IV fluids per nephro team, IV fluids discontinued 11/14 - No emergency indication for dialysis as per nephro team, will continue to monitor in AM - record strict I's/O's - Vascular surgery team consulted for port placement, on hold currently, plan to place port in next 2 days depending on patient presentation - Medications reviewed by nephrology team, stated appropriate for kidney function - Repeat metabolic panel daily in AM, no current acidemia or hyperkalemia noted in labs, monitor - Renal US shows no evidence of obstructive uropathy - KUB ordered 11/11 due to new history of inability to urinate, results show mildly air distended colon, apparent partial effacement of haustral markings, maybe consistent with colitis, no evidence of SBO - 400 cc of urine output in last 24 hours - quick runs of SVT with HR in 200s on 11/14, asymptomatic, started 12.5 mg BID Metoprolol - KUB 11/16 shows evidence of ileus, changed pain regimen to oxycodone 5mg BID PRN + acetaminophen 650mg, will evaluate how patient is doing in AM and consider NG tube in future, Miralax scheduled BID #Fever in neutropenic patient - Dx with angioimmunoblastic lymphoma on 10/17 - Now afebrile with previous fever of 39 C - may be due to COVID vs gastroenteritis, or bacterial conjunctivitis - WBC 9.27 now, neutropenic precautions removed - CXR unremarkable, CT abd without apparent acute process - blood cx were negative x 48 hours - c diff negative - Vancomycin d/c'ed, Zosyn d/c'ed by ID due to negative blood cultures and improving neutropenia - IVF 80/hr x1 bag #Lymphoma/Splenic mass - 11/04 CT abd showed splenomegaly with a lesion measuring ~13 x 10 mm. Few prominent lymph nodes at lennox hepatis and adjacent to the splenic hilum with the largest measuring 17 mm. - Port placed last Sunday. First and only dose of immunotherapy so far was on 10/30. Next scheduled for 11/20 - Abd. pain likely from mass effect of splenic mass - Oxycodone 5mg BID PRN + acetaminophen 650mg - Follows with Dr Hodges with local oncology - Ordered Magic Mouthwash to assist with mouth sores to use as needed - Vice President Biostatistics consult ordered to get nutrition assessment and assist with appetite #Transaminitis - on admission; AST 71, ALT 89, Tbili 1.5 - no acute process noted on CTAP - has had mild transaminitis on prior labs dating back to 02/2024 and at that time hep B and C negative, hemochromatosis tested and negative, HAKEEM+ - will continue to monitor given very mild but if worsening could consider further evaluation #COVID - Tested positive in the ED but asymptomatic except for chronic cough since June. Treatment not needed at this point #Cough - Tessalon Perles did not work. - Ordered Dextromethorphan. Worked #Hemorrhoids - Ordered Hydrocortisone %1 cream BID #Diarrhea - Use Imodium 2 mg as needed #Aortic Aneurysm/HTN - Low BP on admission- held home amlodipine - Pressures currently 90-100s/60s, fluids managed by nephrology - f/u with cardiology for surgery Code status: full code Disposition: med-surg VTE ppx: Heparin 5000 units Diet: regular Admission and Anticipated Discharge Date Admission Date: November 05, 2024 Supervising Physician Co-Signing Physician Notes Resident Physician Supervision Note: I personally examined the patient and verified all mcwilliams points of history and exam, discussed case, and agree with decision making with Dr. Benson I discussed the case with the resident and agree with the findings and plan as documented in the note. Any exceptions or clarifications are listed here: No particular distress as he is not having any significant coughing currently. Lungs are clear card exam is regular extremities are without edema Reviewed CBC reviewed chemistry, elevated Cr discussed case with nephrology Patient feels about the same, though with intermittent nausea. Abdomen appears somewhat tense but no signs of peritonitis. Renal failure likely ATN. Likely affected by antibiotics, less concerned this is COVID associated nephropathy. Creatinine appears to be reaching its peak. Electrolytes appear stable. May not need dialysis over the weekend. Will monitor. Regarding COVID the patient remains without any respiratory distress. However due to his immunosuppression patient continues to require isolation. All antibiotics have been discontinued and infectious diseases following. 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 Patient reports continued diffuse abdominal pain. He feels like his urinating and bowel movements have improved. Continues to have nausea this morning, had one non-bloody, non-bilious vomiting episode. His leg pain and swelling has improved. His mouth sores have also improved. Review of Systems Constitutional: as per Subjective / HPI Physical Exam Constitutional: + ill appearing Respiratory: normal respiratory effort, lungs clear to auscultation Cardiovascular: RRR, no murmur, no edema Gastrointestinal (Abdomen): Inspection/Auscultation: normal bowel sounds Percussion/Palpation: + abdomen tender (diffuse abdominal tenderness, worse in LUQ and LLQ), abdomen soft and normal to percussion; no guarding and abdomen not rigid abdomen is distended Skin: no rashes, warm and dry Psychiatric: A+Ox3, euthymic affect Results & Data Results & Data Vital Signs (Past 12 Hours) Vital Signs Temp Pulse Pulse Resp BP BP Pulse Ox 11/16/24 07:39 36.9 C 90 16 118/82 95 11/16/24 02:58 36.9 C 85 16 127/71 97 11/16/24 00:23 83 11/15/24 23:08 37.0 C 87 17 107/67 96 O2 Del Method 11/16/24 07:39 Room Air 11/16/24 02:58 Room Air 11/16/24 00:23 11/15/24 23:08 Room Air Resident Activity Tracking Resident Involvement: Resident Care Provided Care Provided: Adult Hospital Medicine
[2024-11-16] MEDS ORDERED: ACETAMINOPHEN 325 MG TAB PO PRN (11:35)
--- NOTE | 2024-11-16 12:12 | Nephrology Progress Note ---
Date of Service November 16, 2024 Assessment & Plan (1) GAYATRI (acute kidney injury): Plan: * ATN (multifactorial - CLYDE, NSAID administration, hypotension) * Cr continues to slowly trend up. UO only 400 cc last 24 hours. No CHF on exam. Electrolyte balance is acceptable. Discussed ENGINE LATHE OPERATOR w/ patient this am. Will hold today and reassess in am. If renal function fails to stabilize over next 24-48 hours, will pursue IJ TCC and initiation of ENGINE LATHE OPERATOR. Primary service was updated. (2) Ileus: Plan: * KUB x-ray shows progressive ileus. Recommend NGT for decompression. (3) COVID: Plan: * Clinically improving. 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 LN [place] [facility] [place] - Francis is advised that this will likely need to be rescheduled. Admission and Anticipated Discharge Date Admission Date: November 05, 2024 Subjective Mr. Tejeda was evaluated in his hospital room this morning. He complains of nausea but denies abdominal pain. He is breathing comfortably on RA, flat in bed. Review of Systems Constitutional: no fever Eyes: no problem reported Ear, Nose, Mouth, Throat: no problem reported Respiratory: no dyspnea Cardiovascular: no chest pain Gastrointestinal: + diarrhea/loose stools; no abdominal pa in Genitourinary: no dysuria Musculoskeletal: no problem reported Integumentary: no rash Neurologic: no problem reported Psychiatric: no problem reported Physical Exam Constitutional: not in distress Eyes: PERRL, conjunctivae normal, anicteric sclerae ENMT: external ear and nose normal, oropharynx normal Neck: trachea midline, no thyromegaly Respiratory: normal respiratory effort, lungs clear to auscultation Cardiovascular: Rate/Rhythm: regular rate and regular rhythm Extremities: + edema (2+ dependent edema) Gastrointestinal (Abdomen): Inspection/Auscultation: + abdomen distended Percussion/Palpation: + abdomen tender; no guarding Skin: no rashes, warm and dry Neurologic: no focal motor deficits Results & Data Vital Signs (Past 12 Hours) Vital Signs Temp Pulse Pulse Resp BP Pulse Ox O2 Del Method 11/16/24 10:49 36.9 C 87 18 115/79 98 Room Air 11/16/24 07:39 36.9 C 90 16 118/82 95 Room Air 11/16/24 02:58 36.9 C 85 16 127/71 97 Room Air 11/16/24 00:23 83 Laboratory Results Laboratory Results WBC 11.20 K/ul (4.8-10.8) H 11/16/24 05:53 RBC 2.83 M/uL (4.70-6.10) L 11/16/24 05:53 Hgb 8.4 g/dl (14.0-18.0) L 11/16/24 05:53 Hct 25.6 % (42.0-52.0) L 11/16/24 05:53 MCV 90.5 fL (80.0-100.0) 11/16/24 05:53 MCH 29.7 pg (25.0-34.0) 11/16/24 05:53 MCHC 32.8 g/dL (32.0-36.0) 11/16/24 05:53 RDW Std Deviation 47.7 fL (36.4-46.3) H 11/16/24 05:53 RDW Coeff of Sharita 14.6 % (11.5-14.5) H 11/16/24 05:53 Plt Count 406 K/uL (130-400) H 11/16/24 05:53 MPV 8.6 fL (9.4-12.4) L 11/16/24 05:53 Immature Gran % (Auto) 1.3 % 11/04/24 22:30 Neut % (Auto) 56.9 % 11/04/24 22:30 Lymph % (Auto) 17.7 % 11/04/24 22:30 [place] % (Auto) 5.1 % 11/04/24 22:30 Eos % (Auto) 16.5 % 11/04/24 22:30 Baso % (Auto) 2.5 % 11/04/24 22:30 Neut # (Auto) < 0.50 K/uL (1.40-6.50) L* 11/08/24 06:03 Lymph # (Auto) 0.14 K/uL (1.20-3.40) L 11/04/24 22:30 [place] # (Auto) 0.04 K/uL (0.11-0.59) L 11/04/24 22:30 Eos # (Auto) 0.13 K/uL (0.00-0.50) 11/04/24 22:30 Baso # (Auto) 0.02 K/uL (0.00-0.20) 11/04/24 22:30 Immature Gran # (Auto) 0.01 K/uL (0.01-0.20) 11/04/24 22:30 Neutrophils % (Manual) 80 % 11/12/24 05:49 Lymphocytes % (Manual) 2 % 11/12/24 05:49 Monocytes % (Manual) 8 % 11/12/24 05:49 Basophils % (Manual) 1 % 11/12/24 05:49 Metamyelocytes % (Man) 5 % 11/12/24 05:49 Myelocytes % (Man) 4 % 11/12/24 05:49 Neutrophils # (Manual) 4.32 K/uL (1.40-6.50) 11/12/24 05:49 Total Absolute Neuts 4.32 K/uL (1.4-6.5) 11/12/24 05:49 Lymphocytes # (Manual) 0.11 K/uL (1.2-3.4) L 11/12/24 05:49 Total Abs Lymphocytes 0.11 K/uL (1.2-3.4) L 11/12/24 05:49 Monocytes # (Manual) 0.43 K/uL (0.11-0.59) 11/12/24 05:49 Basophils # (Manual) 0.05 K/uL (0-0.2) 11/12/24 05:49 Metamyelocytes # (Man) 0.27 K/uL (0-0) H 11/12/24 05:49 Myelocytes # (Manual) 0.22 K/uL (0-0) H 11/12/24 05:49 Toxic Granulation 1+ 11/12/24 05:49 Dohle Bodies 1+ 11/12/24 05:49 Platelet Estimate Decreased (Normal) L 11/09/24 04:29 Polychromasia 2+ 11/12/24 05:49 PT 11.9 Seconds (9.0-12.0) 11/04/24 22:30 INR 1.1 (0.9-1.1) 11/04/24 22:30 APTT 30 Seconds (21-31) 11/04/24 22:30 PTT Ratio 1.1 11/04/24 22:30 VBG pH 7.28 (7.36-7.41) L 11/13/24 11:27 VBG pCO2 33 mmHg (38-50) L 11/13/24 11:27 VBG pO2 42 mmHg 11/13/24 11:27 VBG HCO3 16 mmol/L 11/13/24 11:27 VBG O2 Saturation 73.0 % 11/13/24 11: VBG Base Excess -10.3 mEq/L 11/13/24 11:27 Sodium 140 mmol/L (136-145) 11/16/24 05:53 Potassium 3.6 mmol/L (3.5-5.1) 11/16/24 05:53 Chloride 113 mmol/L (98-107) H 11/16/24 05:53 Carbon Dioxide 17 mmol/L (21-32) L 11/16/24 05:53 Anion Gap 10 (3-11) 11/16/24 05:53 BUN 50 mg/dl (6-23) H 11/16/24 05:53 Creatinine 9.75 mg/dl (0.6-1.4) H* 11/16/24 05:53 Est Cr Clr Drug Dosing 10.4 ml/min 11/16/24 05:53 eGFR 5.40 11/16/24 05:53 BUN/Creatinine Ratio 5.1 (10-20) L 11/16/24 05:53 Glucose 97 mg/dl (70-99(Fasting)) 11/16/24 05:53 Lactate 0.8 mmol/L (0.4-2.0) 11/14/24 16:10 Calcium 7.9 mg/dl (8.6-10.3) L 11/16/24 05:53 Phosphorus 4.0 mg/dl (2.5-4.9) 11/15/24 06:09 Magnesium 1.9 mg/dl (1.7-2.4) 11/04/24 22:30 Total Bilirubin 0.4 mg/dl (0.2-1.0) 11/16/24 05:53 Direct Bilirubin 0.1 mg/dl (0-0.2) 11/16/24 05:53 AST 13 U/L (13-39) 11/16/24 05:53 ALT 8 U/L (7-52) 11/16/24 05:53 Alkaline Phosphatase 79 U/L (34-104) 11/16/24 05:53 Troponin I High Sens 6.6 pg/ml (0-20) 11/09/24 17:22 Total Protein 4.8 gm/dl (6.0-8.3) L 11/16/24 05:53 Albumin 2.4 gm/dl (3.4-5.0) L 11/16/24 05:53 Globulin 2.5 gm/dl (2.5-4.0) 11/12/24 05:49 Albumin/Globulin Ratio 1.0 (0.9-2) 11/12/24 05:49 Lipase 26 U/L (11-82) 11/16/24 05:53 Procalcitonin 0.22 ng/ml (0-0.5) 11/04/24 22:30 Urine Color Dark Yellow 11/12/24 02:40 Urine Appearance Turbid (Clear) A 11/12/24 02:40 Urine pH 5.0 (4.5-7.5) 11/12/24 02:40 Ur Specific [place] 1.024 (1.000-1.030) 11/12/24 02:40 Urine Protein 1+ (Negative) H 11/12/24 02:40 Urine Glucose (UA) Negative (Negative) 11/12/24 02:40 Urine Ketones Trace (Negative) H 11/12/24 02:40 Urine Blood Negative (Negative) 11/12/24 02:40 Urine Nitrite Negative (Negative) 11/12/24 02:40 Urine Bilirubin Negative (Negative) 11/12/24 02:40 Urine Urobilinogen Negative (Negative) 11/12/24 02:40 Ur Leukocyte Esterase 1+ (Negative) H 11/12/24 02:40 Urine WBC (Auto) 21-50 /hpf (0-5) H 11/12/24 02:40 Urine RBC (Auto) 0-2 /hpf (0-2) 11/12/24 02:40 U Hyaline Cast (Auto) 3-5 /lpf (0-2) H 11/12/24 02:40 U Epithel Cells (Auto) 0-2 /hpf (0-2) 11/12/24 02:40 Urine Bacteria (Auto) 1+ (None Seen) H 11/12/24 02:40 Amorphous Sediment Present (None Prsent) A 11/12/24 02:40 Urine Comment 11/12/24 02:40 Stl C. diff Tox B Gene Negative Cdiff Gene (Neg) 11/05/24 06:33 Stl C. diff [id number] NEGATIVE 11/05/24 06:33 Random Vancomycin 28.2 mcg/ml (10-20) H* 11/10/24 04:13 Anaplasma Smear See Comment 11/07/24 05:32 Babesia Smear See Comment 11/07/24 05:32 Babesia microti DNA PCR Not Detected (Not Detected) 11/07/24 05:32 SARS-CoV-2 (PCR) POSITIVE (Negative) A 11/04/24 22:32 Influenza Type A (PCR) Negative (Neg) 11/04/24 22:32 Influenza Type B (PCR) Negative (Neg) 11/04/24 22:32 RSV (RT-PCR) Negative (Neg) 11/04/24 22:32 Impressions Abdomen/Pelvis CT 11/05/24 00:16 EXAM: CT abd pelvis IV con only CLINICAL HISTORY: abd pain TECHNIQUE: Contiguous axial images were obtained from the level of the diaphragm to the pubic symphysis with intravenous contrast. Coronal and sagittal reconstructions were likewise performed and indicated to increase the sensitivity for detecting clinically relevant pathology. If IV contrast material had not been administered, the likelihood of detecting abnormalities relevant to the patient's condition would have been substantially decreased. CT scan was performed according to ALARA (as low as reasonable achievable). COMPARISON: October 20:12:19 MAIL DISTRIBUTION CLERK FINDINGS: The visualized lung bases are clear.Sliding hiatus hernia noted.-stable. Evidence of few prominent lymph nodes at lennox hepatis and adjacent to the splenic hilum.- largest measures 18 mm Multiple prominent non-necrotic lymph nodes are also noted at aortocaval, para-aortic and right common iliac vessels- largest measuring 23 mm The spleen appears enlarged in size and shows a huge heterogeneously enhancing lesion measuring about 13 x 10 mm. Few patchy similar hypodense area are noted in remaining splenic parenchyma as well. The liver is enlarged size (19cm in mid clavicular line)and normal in attenuation. No focal liver lesions are seen. There is no intra or extrahepatic biliary ductal dilatation. Hepatic vasculature is patent. The gallbladder is absent. The pancreas, and adrenal glands are unremarkable. The kidneys are normal in size and attenuation. There is no hydronephrosis or perinephric fat stranding. Few small gravels are noted involving bilateral kidneys The ureters are normal in caliber and no ureteral calculi are seen. The bladder is normal in contour. Pelvic viscera are unremarkable. No focal or diffuse bowel wall thickening or evidence of bowel obstruction is identified. The appendix is visualized in the right lower quadrant and appears within normal limits. Abdominal and pelvic vasculature is patent. No aggressive appearing osseous lesions are identified. Enlarged prostate. IMPRESSION: 1. The spleen appears enlarged in size and shows a huge heterogeneously enhancing lesion measuring about 13 x 10 mm. 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 -stable in size. HPE correlation suggested. 2. Evidence of few prominent lymph nodes at lennox hepatis and adjacent to the splenic hilum.- largest measures 17 mm-stable. 3. Multiple prominent non-necrotic lymph nodes are also noted at aortocaval, para-aortic and right common iliac vessels- -stable. 4. Few small gravels are noted in bilateral kidney-stable. 5. Enlarged prostate.-stable. 6. Hepatomegaly- stable Electronically signed by Navid Falcon 11-05-2024 02:30 AM Chest X-Ray 11/06/24 19:04 EXAM: XR chest 2V PA/lateral CLINICAL HISTORY: cough, rales, infiltrate. TECHNIQUE: X-ray images of the chest were obtained in posteroanterior (PA) and lateral projections. COMPARISON: 11/04/2024. FINDINGS: Pulmonary Parenchyma: No evidence of consolidation, collapse, or focal opacities. No pulmonary nodules identified. No evidence of pleural effusion or pleural thickening. Heart and Mediastinum: Heart size and shape are normal. Bilateral hilas appear bulky and lobulated raising concern for hilar lymphadenopathy/lesion. Bony Thorax: Bony thorax appears intact without fractures or deformities. Soft Tissues: Soft tissues overlying the chest wall are unremarkable. IMPRESSION: No acute collapse, consolidation or significant pulmonary infiltration. Bilateral hilas appear bulky and lobulated raising concern for lymphadenopathy/lesion. (stable) Stability on comparison. Clinical correlation and CT chest are advised to rule out the possibility. Electronically signed by Aguilar Canas 11-06-2024 8:55 PM Renal Ultrasound 11/10/24 13:52 EXAM: US renal/blad retro comp CLINICAL HISTORY: Suspect ATN, elevated creatinine levels TECHNIQUE: Real-time grayscale ultrasound examination of the kidneys and urinary bladder were visualized COMPARISON: CT abdomen and pelvis dated 11/05/2024 was reviewed. FINDINGS: Right Kidney: Measures approximately 14.1 cm in length. Normal parenchymal echogenicity with maintained corticomedullary differentiation. Cortical thickness within normal limits. An echogenic focus is noted in the lower pole measuring approximately 5.5 mm, suggestive of a renal calculus. No evidence of hydronephrosis. Left Kidney: Measures approximately 14.7 cm in length. Normal parenchymal echogenicity with maintained corticomedullary differentiation. Cortical thickness within normal limits. Two echogenic foci identified measuring approximately 4.8 mm and 2.6 mm, suggestive of renal calculi. No evidence of hydronephrosis. Urinary Bladder: Partially distended at the time of examination. Apparent thickening of the bladder wall measuring approximately 1.19 cm. No intraluminal calculus or intraluminal echoes identified. Ureteral jets not visualized, likely due to overlying bowel gas. IMPRESSION: 1. Bilateral renal calculi without sonographic evidence of hydronephrosis. Stable findings 2. Partially distended urinary bladder with apparent bladder wall thickening (1.19 cm) suggesting cystitis. 3. Prior CT dated 11/05/2024 demonstrated a hyperdense focus within the urinary bladder, likely representing a calculus. On the current ultrasound examination, no intravesical calculus or echogenic focus is identified. 4. No sonographic evidence of obstructive uropathy. 5. Clinical correlation advised. Electronically signed by Aguilar Canas 11-10-2024 6:23 PM KUB X-Ray 11/16/24 09:29 KUB HISTORY: evaluate for ileus COMPARISON STUDY: 11/11/2024 FINDINGS: There is stable mild diffuse gaseous distention of the colon measuring up to 9 cm. There are a few mildly distended gas-filled small bowel loops measuring up to 3.5 cm. No free air seen. IMPRESSION: Appearance of the abdomen suggests ileus. ACT 112: Negative or not required by law. The above report was generated using voice recognition software. It may contain grammatical, syntax or spelling errors. Electronically signed by: Sonny Gomez M.D. 11/16/2024 10:03 AM PG Care Time/CCT Total # of Minutes Spent Total Time Spent with Patient: Total time spent is greater than 50% in coordination of care (as documented) at patient's floor/unit and/or counseling patient: Coding Level of Care Code 90158 SUB INP/OBS CARE 3/50MIN Diagnoses GAYATRI (acute kidney injury) N17.9 Ileus K56.7 COVID U07.1 Lymphoma C85.90
[2024-11-16] MEDS: POLYETHYLENE (MIRALAX) 17 GM PACK PO SCH (15:39)
[2024-11-17 07:42] LABS: Hematocrit (blood only) 27.1 % (42.0-52.0); Hemoglobin 9.0 g/dl (14.0-18.0); Mean Corpuscular Hemoglobin 29.9 pg (25.0-34.0); Mean Corpuscular Volume 90.0 fL (80.0-100.0); Platelet Count 441 K/uL (130-400); RDW Standard Deviation 47.6 fL (36.4-46.3); Red Blood Count 3.01 M/uL (4.70-6.10); White Blood Count 12.18 K/ul (4.8-10.8)
[2024-11-17 08:05] LABS: Anion Gap 9.0 (3-11); Blood Urea Nitrogen 50.0 mg/dl (6-23); Calcium 8.0 mg/dl (8.6-10.3); Carbon Dioxide 18.0 mmol/L (21-32); Chloride 114.0 mmol/L (98-107); Creatinine Clr Calc Pharmacy 10.7 ml/min; Glucose 100.0 mg/dl (70-99(Fasting)); Magnesium 1.5 mg/dl (1.7-2.4); Potassium 3.6 mmol/L (3.5-5.1); Sodium 141.0 mmol/L (136-145)
--- NOTE | 2024-11-17 08:08 | Vascular Medicine ProgressNote ---
Date of Service November 17, 2024 Assessment & Plan (1) GAYATRI (acute kidney injury): Plan: dialysis not initiated over the weekend. Will await input from Nephrology team this morning about need for access. Admission and Anticipated Discharge Date Admission Date: November 05, 2024 Subjective Having mild nausea. Respiratory symptoms largely improved. Physical Exam Physical Exam: no new symptoms Results & Data Vital Signs (Past 12 Hours) Vital Signs Temp Pulse Pulse Resp BP BP Pulse Ox 11/17/24 03:22 37.0 C 80 18 117/80 95 11/17/24 00:07 81 11/16/24 23:58 36.8 C 84 20 117/72 92 O2 Del Method 11/17/24 03:22 Room Air 11/17/24 00:07 11/16/24 23:58 Room Air PG Care Time/CCT Total # of Minutes Spent Total Time Spent with Patient: Total time spent is greater than 50% in coordination of care (as documented) at patient's floor/unit and/or counseling patient: Coding Level of Care Code 05982 SUB INP/OBS CARE 05/17MIN Diagnoses GAYATRI (acute kidney injury) N17.9
--- NOTE | 2024-11-17 09:07 | Nephrology Progress Note ---
Date of Service November 17, 2024 Assessment & Plan (1) GAYATRI (acute kidney injury): Plan: * ATN (multifactorial - CLYDE, NSAID administration, hypotension) * Kidney function appears to be stabilizing but patient remains oliguric. No CHF on exam. Electrolyte balance is acceptable. * Will provide 100 mg IV furosemide and monitor UO, BMP. If patient remains oliguric, will then need to consider IJ TCC and initiation of MANAGER OF SECURITY tomorrow. Discussed w/ patient, spouse and vascular surgery this am (2) Ileus: Plan: * KUB x-ray shows ileus. Primary serviced offered laxative. Patient declined (3) COVID: Plan: * Clinically improving. 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 [place] [facility] [place] - Francis is advised that this will likely need to be rescheduled. Admission and Anticipated Discharge Date Admission Date: November 05, 2024 Subjective Mr. Tejeda was evaluated in his hospital room this morning. He complains of nausea but denies abdominal pain. He is breathing comfortably on RA, flat in bed. Review of Systems Constitutional: no fever Eyes: no problem reported Ear, Nose, Mouth, Throat: no problem reported Respiratory: no dyspnea Cardiovascular: no chest pain Gastrointestinal: + diarrhea/loose stools; no abdominal pa in Genitourinary: no dysuria Musculoskeletal: no problem reported Integumentary: no rash Neurologic: no problem reported Psychiatric: no problem reported Physical Exam Constitutional: not in distress Eyes: PERRL, conjunctivae normal, anicteric sclerae ENMT: external ear and nose normal, oropharynx normal Neck: trachea midline, no thyromegaly Respiratory: normal respiratory effort, lungs clear to auscultation Cardiovascular: Rate/Rhythm: regular rate and regular rhythm Extremities: + edema (2+ dependent edema) Gastrointestinal (Abdomen): Inspection/Auscultation: + abdomen distended Percussion/Palpation: + abdomen tender and abdomen soft; no guarding Skin: no rashes, warm and dry Neurologic: no focal motor deficits Results & Data Vital Signs (Past 12 Hours) Vital Signs Temp Pulse Pulse Resp BP BP Pulse Ox 11/17/24 08:00 37 C 92 H 17 122/80 97 11/17/24 03:22 37.0 C 80 18 117/80 95 11/17/24 00:07 81 11/16/24 23:58 36.8 C 84 20 117/72 92 O2 Del Method 11/17/24 08:00 Room Air 11/17/24 03:22 Room Air 11/17/24 00:07 11/16/24 23:58 Room Air Laboratory Results Laboratory Results - last 24 hr 11/16/24 11/17/24 05:53 06:32 WBC 11.20 H 12.18 H RBC 2.83 L 3.01 L Hgb 8.4 L 9.0 L Hct 25.6 L 27.1 L MCV 90.5 90.0 MCH 29.7 29.9 MCHC 32.8 33.2 RDW Std Deviation 47.7 H 47.6 H RDW Coeff of Sharita 14.6 H 14.6 H Plt Count 406 H 441 H MPV 8.6 L 8.7 L Sodium 140 141 Potassium 3.6 3.6 Chloride 113 H 114 H Carbon Dioxide 17 L 18 L Anion Gap 10 9 BUN 50 H 50 H Creatinine 9.75 H* 9.53 H* Est Cr Clr Drug Dosing 10.4 10.7 eGFR 5.40 5.55 BUN/Creatinine Ratio 5.1 L 5.2 L Glucose 97 100 H Calcium 7.9 L 8.0 L Magnesium 1.5 L Total Bilirubin 0.4 Direct Bilirubin 0.1 AST 13 ALT 8 Alkaline Phosphatase 79 Total Protein 4.8 L Albumin 2.4 L Lipase 26 PG Care Time/CCT Total # of Minutes Spent Total Time Spent with Patient: Total time spent is greater than 50% in coordination of care (as documented) at patient's floor/unit and/or counseling patient: Coding Level of Care Code 64309 SUB INP/OBS CARE 3/50MIN Diagnoses GAYATRI (acute kidney injury) N17.9 Ileus K56.7 COVID U07.1 Lymphoma C85.90
--- NOTE | 2024-11-17 09:15 | Hospitalist Progress Note ---
Date of Service November 17, 2024 Assessment & Plan (1) Fever and neutropenia: (2) Transaminitis: (3) Ascending aorta dilatation: (4) COVID: Plan Pt is a 64 yo male with a PMH of 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 #GAYATRI - Uptrending Cr levels (2.97, 4.18, 4.88, 6.68, 7.58, 8.38, 9.07, 9.55, 9.75) indicative of acute kidney injury, Cr 11/17 9.53, continue to trend - UA shows +LE, increased WBC count, trace ketones; cultures negative - Per nephro team, likely ATN related to combined effect of supratherapeutic levels of vancomycin previously administered + hypotension + IV contrast - Previously on IV fluids per nephro team, IV fluids discontinued 11/14 - Record strict I's/O's - Medications reviewed by nephrology team, stated appropriate for kidney function - Repeat metabolic panel daily in AM, no current acidemia or hyperkalemia noted in labs, monitor - Renal US shows no evidence of obstructive uropathy - KUB ordered 11/11 due to new history of inability to urinate, results show mildly air distended colon, apparent partial effacement of haustral markings, maybe consistent with colitis, no evidence of SBO - 450+ cc of urine output in last 24 hours - quick runs of SVT with HR in 200s on 11/14, asymptomatic, started 12.5 mg BID Metoprolol - Nephro team tried 100mg IV furosemide 11/17 AM, plan to re-evaluate in morning, and consider NUTRITION WORKER tomorrow if patient remains oliguric #Ileus - KUB 11/16 shows evidence of ileus - Changed pain regimen to oxycodone 5mg BID PRN + acetaminophen 650mg PRN, will evaluate how patient is doing in AM - Increase Protonix to BID, scheduled Zofran daily, Pepcid BID, Carafate QID - Consider NG tube in future - Attempted scheduled Miralax BID, patient declines - Could be related to oxycodone medication use, we will try Rilistor 8mg q2days #Fever in neutropenic patient - Dx with angioimmunoblastic lymphoma on 10/17 - Now afebrile with previous fever of 39 C - may be due to COVID vs gastroenteritis, or bacterial conjunctivitis - Neutropenic precautions removed due to increasing WBC count - CXR unremarkable, CT abd without apparent acute process - blood cx were negative x 48 hours - c diff negative - Vancomycin d/c'ed, Zosyn d/c'ed by ID due to negative blood cultures and improving neutropenia - IVF 80/hr x1 bag #Lymphoma/Splenic mass - 11/04 CT abd showed splenomegaly with a lesion measuring ~13 x 10 mm. Few prominent lymph nodes at lennox hepatis and adjacent to the splenic hilum with the largest measuring 17 mm. - Port placed for treatment. First and only dose of immunotherapy so far was on 10/30. Next scheduled for 11/20. Patient aware he may need to reschedule this. - Abd. pain likely from mass effect of splenic mass - Oxycodone 5mg BID PRN + acetaminophen 650mg - Follows with Dr Hodges with local oncology - Ordered Magic Mouthwash to assist with mouth sores to use as needed - Data Consultant consult to get nutrition assessment and assist with appetite #Transaminitis - on admission; AST 71, ALT 89, Tbili 1.5 - no acute process noted on CTAP - has had mild transaminitis on prior labs dating back to 02/2024 and at that time hep B and C negative, hemochromatosis tested and negative, HAKEEM+ - will continue to monitor given very mild but if worsening could consider further evaluation #COVID - Tested positive in the ED but asymptomatic except for chronic cough since June. Treatment not needed at this point #Cough - Tessalon Perles did not work. - Ordered Dextromethorphan. Worked #Hemorrhoids - Ordered Hydrocortisone 1% cream BID #Diarrhea - d/c Imodium in lieu of recent ileus #Aortic Aneurysm/HTN - Low BP on admission- held home amlodipine - Pressures currently 90-100s/60s, fluids managed by nephrology - f/u with cardiology for surgery Code status: full code Disposition: med-surg VTE ppx: Heparin 5000 units Diet: regular Admission and Anticipated Discharge Date Admission Date: November 05, 2024 Supervising Physician Co-Signing Physician Notes I personally examined the patient and verified all mcwilliams points of history and exam, discussed case, and agree with decision making with Dr Benson for p.o. intake. Feeling somewhat nauseated. Small bowel movements. Not really any vomiting but has not been able to eat well and has had some dry heaving. Vitals noted, in general he is awake and alert fatigued in no distress. HEENT normocephalic atraumatic mucous membranes moist. Breathing unlabored no accessory muscle use good effort. Abdomen is soft he has epigastric tenderness no guarding rebound or rigidity otherwise his abdomen is nonspecifically distended. No tenderness elsewhere. Neutropenic feverresolved. Was likely viral acute renal failureATNfortunately no pulmonary edema or refractory hyperkalemia. Appreciate nephrology assistance. His urine output has been improvinghopefully this will start to recover. Continue to follow closely. Nausea/severe protein calorie malnutrition (about 45 pounds of weight loss prior to admission)continue to discuss calorie goals. As far as his nauseaprobably is multifactorial, constipation may be playing a roletrial of [employer] store. Increase Protonix to twice daily, add Pepcid twice daily, Carafate 4 times daily, schedule Zofran for 24 hours and continue to follow. Possible uremia may be playing a role as well, although his renal failure is so recent it is less likely. Lymphomaongoing outpatient follow-up DVT prophylaxisheparin subcu Subjective Pt is a 64 yo male with a PMH of angioimmunoblastic lymphoma on immunotherapy, ascending aortic aneurysm not yet repaired due to recent cancer dx, ex-smoker, HTN, HLD, and GERD presenting for fever. Patient reports continued diffuse abdominal pain. Reports mild nausea this morning. He was able to eat lunch and breakfast yesterday with mild nausea. He says he was spitting up and gagging with meals. Reports regular bowel movements, non-bloody. Patient reports his volume of urine has improved. Leg pain has improved. Denies SOB, chest pain, fevers, chills. Review of Systems Constitutional: as per Subjective / HPI Physical Exam Constitutional: + ill appearing Respiratory: normal respiratory effort, lungs clear to auscultation Cardiovascular: Rate/Rhythm: regular rate Gastrointestinal (Abdomen): Inspection/Auscultation: normal bowel sounds Percussion/Palpation: + abdomen tender (diffuse abdominal tenderness, worse in LUQ and LLQ), abdomen soft and normal to percussion; no guarding and abdomen not rigid Skin: no rashes, warm and dry Psychiatric: A+Ox3, euthymic affect Results & Data Results & Data Vital Signs (Past 12 Hours) Vital Signs Temp Pulse Pulse Resp BP BP Pulse Ox 11/17/24 08:00 37 C 92 H 17 122/80 97 11/17/24 03:22 37.0 C 80 18 117/80 95 11/17/24 00:07 81 11/16/24 23:58 36.8 C 84 20 117/72 92 O2 Del Method 11/17/24 08:00 Room Air 11/17/24 03:22 Room Air 11/17/24 00:07 11/16/24 23:58 Room Air Resident Activity Tracking Resident Involvement: Resident Care Provided Care Provided: Adult Hospital Medicine
--- NOTE | 2024-11-17 09:34 | Billing Data ---
Date of Service November 14, 2024 Coding Level of Care Code 14314 SUB INP/OBS CARE MIN
--- NOTE | 2024-11-17 09:36 | Billing Data ---
Date of Service November 15, 2024 Coding Level of Care Code 04453 SUB INP/OBS CARE MIN
--- NOTE | 2024-11-17 09:42 | Billing Data ---
Date of Service November 16, 2024 Coding Level of Care Code 05946 SUB INP/OBS CARE MIN
[2024-11-17] MEDS: MAGNESIUM SULFATE / D5W 1 GM/100 ML BAG IV SCH (11:37)
[2024-11-17] MEDS: FUROSEMIDE 40 MG/4 ML VIAL IV ONE (11:41)
[2024-11-17] MEDS ORDERED: POLYETHYLENE (MIRALAX) 17 GM PACK PO PRN (12:32)
[2024-11-17 15:43] LABS: Anion Gap 10.0 (3-11); Blood Urea Nitrogen 52.0 mg/dl (6-23); Calcium 8.1 mg/dl (8.6-10.3); Carbon Dioxide 17.0 mmol/L (21-32); Chloride 114.0 mmol/L (98-107); Creatinine Clr Calc Pharmacy 10.5 ml/min; Glucose 118.0 mg/dl (70-99(Fasting)); Potassium 3.4 mmol/L (3.5-5.1); Sodium 141.0 mmol/L (136-145)
[2024-11-17] MEDS: METHYLNALTREXONE BROMIDE 12 MG/0.6 ML VIAL SQ SCH (15:44)
--- NOTE | 2024-11-17 16:15 | Billing Data ---
Date of Service November 17, 2024 Coding Level of Care Code 17361 SUB INP/OBS CARE MIN
[2024-11-17] MEDS: ONDANSETRON INJ 2 MG/ML 2 ML VIAL IV SCH (17:43)
[2024-11-17] MEDS: FAMOTIDINE 20MG IV PUSH 20 MG/5 ML SYR IV SCH (17:43)
[2024-11-17] MEDS: SUCRALFATE 1 GM/10 ML UDC PO SCH (17:52)
[2024-11-17] MEDS: PANTOprazole 40 MG/10 ML SYR IV SCH (21:25)
[2024-11-18 06:30] LABS: Hematocrit (blood only) 25.8 % (42.0-52.0); Hemoglobin 8.3 g/dl (14.0-18.0); Mean Corpuscular Hemoglobin 29.1 pg (25.0-34.0); Mean Corpuscular Volume 90.5 fL (80.0-100.0); Platelet Count 367 K/uL (130-400); RDW Standard Deviation 48.4 fL (36.4-46.3); Red Blood Count 2.85 M/uL (4.70-6.10); White Blood Count 10.93 K/ul (4.8-10.8)
[2024-11-18 06:52] LABS: Anion Gap 9.0 (3-11); Blood Urea Nitrogen 51.0 mg/dl (6-23); Calcium 7.8 mg/dl (8.6-10.3); Carbon Dioxide 18.0 mmol/L (21-32); Chloride 114.0 mmol/L (98-107); Creatinine Clr Calc Pharmacy 11.0 ml/min; Glucose 95.0 mg/dl (70-99(Fasting)); Potassium 3.3 mmol/L (3.5-5.1); Sodium 141.0 mmol/L (136-145)
[2024-11-18 06:57] LABS: INR 1.4 (0.9-1.1); Prothrombin Time 14.3 Seconds (9.0-12.0)
--- NOTE | 2024-11-18 07:55 | Hospitalist Progress Note ---
Date of Service November 18, 2024 Assessment & Plan (1) Fever and neutropenia: (2) Transaminitis: (3) Ascending aorta dilatation: (4) COVID: Plan Pt is a 64 yo male with a PMH of 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 #GAYATRI - Uptrending Cr levels indicative of acute kidney injury, Cr 11/17 9.65 --> 11/18 9.20, continue to trend - UA shows +LE, increased WBC count, trace ketones; cultures negative - Per nephro team, likely ATN related to combined effect of supratherapeutic levels of vancomycin previously administered + hypotension + IV contrast - Previously on IV fluids per nephro team, IV fluids discontinued 11/14 - Record strict I's/O's - Medications reviewed by nephrology team, stated appropriate for kidney function - Repeat metabolic panel daily in AM, no current acidemia or hyperkalemia noted in labs, monitor - Renal US shows no evidence of obstructive uropathy - KUB ordered 11/11 due to new history of inability to urinate, results show: mildly air distended colon, apparent partial effacement of haustral markings, maybe consistent with colitis, no evidence of SBO - multiple episodes of quick runs of SVT with HR in 200s previously, asy mptomatic, started 12.5 mg BID Metoprolol - Nephro team tried 100mg IV furosemide 11/17 AM, patient was able to produce 1400+cc urine, no emergent indication for dialysis at this time, reaching recovery stage of ATN - BMP AM #Ileus - KUB 11/16 shows evidence of ileus - Changed pain regimen to oxycodone 5mg BID PRN + acetaminophen 650mg PRN, will evaluate how patient is doing in AM - Increase Protonix to BID, scheduled Zofran daily, Pepcid BID, Carafate QID - Consider NG tube in future - Attempted scheduled Miralax BID, patient declines - Could be related to oxycodone medication use, we will try Rilistor 8mg q2days - Discussed importance of increasing nutritional intake, 2200 calories per day based on basal energy expenditure - Consider starting Remeron appetite stimulant medication in future if needed #Fever in neutropenic patient - Dx with angioimmunoblastic lymphoma on 10/17 - Now afebrile with previous fever of 39 C - may be due to COVID vs gastroenteritis, or bacterial conjunctivitis - Neutropenic precautions removed due to increasing WBC count - CXR unremarkable, CT abd without apparent acute process - blood cx were negative x 48 hours - c diff negative - Vancomycin d/c'ed, Zosyn d/c'ed by ID due to negative blood cultures and improving neutropenia - IVF 80/hr x1 bag #Lymphoma/Splenic mass - 11/04 CT abd showed splenomegaly with a lesion measuring ~13 x 10 mm. Few prominent lymph nodes at lennox hepatis and adjacent to the splenic hilum with the largest measuring 17 mm. - Port placed for treatment. First and only dose of immunotherapy so far was on 10/30. Next scheduled for 11/20. Patient aware he may need to reschedule this. - Abd. pain likely from mass effect of splenic mass - Oxycodone 5mg BID PRN + acetaminophen 650mg - Follows with Dr Hodges with local oncology - Ordered Magic Mouthwash to assist with mouth sores to use as needed - Tax Record Clerk consult for nutrition assessment and assist with appetite #Transaminitis - on admission; AST 71, ALT 89, Tbili 1.5 - no acute process noted on CTAP - has had mild transaminitis on prior labs dating back to 02/2024 and at that time hep B and C negative, hemochromatosis tested and negative, HAKEEM+ - will continue to monitor given very mild but if worsening could consider further evaluation #COVID - Tested positive in the ED but asymptomatic except for chronic cough since June. Treatment not needed at this point #Cough - Tessalon Perles did not work. - Ordered Dextromethorphan. Worked #Hemorrhoids - Ordered Hydrocortisone 1% cream BID #Diarrhea - d/c Imodium in lieu of recent ileus #Aortic Aneurysm/HTN - Low BP on admission- held home amlodipine - Pressures currently 90-100s/60s, fluids managed by nephrology - f/u with cardiology for surgery Code status: full code Disposition: med-surg VTE ppx: Heparin 5000 units Diet: regular Admission and Anticipated Discharge Date Admission Date: November 05, 2024 Supervising Physician Co-Signing Physician Notes I personally examined the patient and verified all mcwilliams points of history and exam, discussed case, and agree with decision making with Dr Naphade PO intake a little better today -although diet just restored since no need for HD noted. clear liquids - tolerating well. multiple BM after relistor. Vitals noted, in general he is awake and alert fatigued in no distress. HEENT normocephalic atraumatic mucous membranes moist. Breathing unlabored no accessory muscle use good effort. Abdomen is soft he has epigastric tenderness no guarding rebound or rigidity otherwise his abdomen is nonspecifically distended. No tenderness elsewhere. Neutropenic feverresolved. Was likely viral acute renal failureATNfortunately no pulmonary edema or refractory hyperkalemia. Appreciate nephrology assistance. thus far no need for HD and hopefully his slowly improving creatinine as well as improving UO is early sign of recovery Nausea/severe protein calorie malnutrition (about 45 pounds of weight loss prior to admission)continue to discuss calorie goals. As far as his nauseaprobably is multifactorial, constipation may be playing a roletrial of relistor going well. continue Protonix twice daily, add Pepcid twice daily, Carafate 4 times daily, schedule Zofran for 24 hours and continue to follow. Possible uremia may be playing a role as well, although his renal failure is so recent it is less likely. consider appetite stimulant if not improving further Lymphomaongoing outpatient follow-up DVT prophylaxisheparin subcu Subjective Pt is a 64 yo male with a PMH of angioimmunoblastic lymphoma on immunotherapy, ascending aortic aneurysm not yet repaired due to recent cancer dx, ex-smoker, HTN, HLD, and GERD presenting for fever. Patient states he ate lunch and breakfast last night and was able to keep it down. Did not have appetite for dinner. He had some dry heaving last night but no vomiting episodes. About 40 min after taking the Rilistor medication, he had 3 diarrhea bowel movements about 20 minutes apart. His last BM was 10pm last night, states it was better but still loose. Denies bloody BM. Reports his pain is controlled. No other acute complaints. Review of Systems Constitutional: as per Subjective / HPI Physical Exam Constitutional: + ill appearing Respiratory: normal respiratory effort, lungs clear to auscultation Cardiovascular: Rate/Rhythm: regular rate and regular rhythm Heart Sounds: normal S1 and normal S2 Extremities: + edema (1+ pitting edema in blLE) Gastrointestinal (Abdomen): Inspection/Auscultation: + hypoactive bowel sounds Percussion/Palpation: + abdomen tender (diffuse abdominal tenderness, worse in LUQ and LLQ) and abdomen soft; no guarding and abdomen not rigid Skin: no rashes, warm and dry Psychiatric: A+Ox3, euthymic affect Results & Data Results & Data Vital Signs (Past 12 Hours) Vital Signs Temp Pulse Pulse Resp BP BP Pulse Ox 11/18/24 02:27 36.7 C 80 18 136/84 96 11/18/24 00:00 94 H 11/17/24 23:11 36.9 C 85 18 125/62 96 O2 Del Method 11/18/24 02:27 Room Air 11/18/24 00:00 11/17/24 23:11 Room Air Resident Activity Tracking Resident Involvement: Resident Care Provided Care Provided: Adult Hospital Medicine
--- NOTE | 2024-11-18 09:07 | Nephrology Progress Note ---
Date of Service November 18, 2024 Assessment & Plan (1) GAYATRI (acute kidney injury): Plan: * ATN (multifactorial - CLYDE, NSAID administration, hypotension) * Good response to IV furosemide yesterday. 1200 cc UO last shift. Cr improved from 9.7 to 9.2. Patient appears to be entering recovery phase of ATN. * Hold IJ TCC and HD. Vascular surgery notified * Monitor BMP, UO (2) Ileus: Plan: * Clinical ileus * Will supplement serum K * Liquid diet ordered. Advance as tolerated (3) COVID: Plan: * Clinically improving. 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 LN biopsy scheduled at [facility] [place] next week - Francis is advised that this will likely need to be rescheduled. Admission and Anticipated Discharge Date Admission Date: November 05, 2024 Subjective Mr. Tejeda was evaluated in his hospital room this morning. He complains of nausea but denies abdominal pain. He is breathing comfortably on RA, flat in bed. Review of Systems Constitutional: no fever Eyes: no problem reported Ear, Nose, Mouth, Throat: no problem reported Respiratory: no dyspnea Cardiovascular: no chest pain Gastrointestinal: no abdominal pain Genitourinary: no dysuria Musculoskeletal: no problem reported Integumentary: no rash Neurologic: no problem reported Psychiatric: no problem reported Physical Exam Constitutional: not in distress Eyes: PERRL, conjunctivae normal, anicteric sclerae ENMT: external ear and nose normal, oropharynx normal Neck: trachea midline, no thyromegaly Respiratory: normal respiratory effort, lungs clear to auscultation Cardiovascular: Rate/Rhythm: regular rate and regular rhythm Extremities: + edema (2+ dependent edema) Gastrointestinal (Abdomen): Inspection/Auscultation: + abdomen distended Percussion/Palpation: + abdomen tender and abdomen soft; no guarding Skin: no rashes, warm and dry Neurologic: no focal motor deficits Results & Data Vital Signs (Past 12 Hours) Vital Signs Temp Pulse Pulse Resp BP BP Pulse Ox 11/18/24 02:27 36.7 C 80 18 136/84 96 11/18/24 00:00 94 H 11/17/24 23:11 36.9 C 85 18 125/62 96 O2 Del Method 07/29/25 02:27 Room Air 11/18/24 00:00 11/17/24 23:11 Room Air Laboratory Results Laboratory Results - last 24 hr 11/17/24 11/18/24 14:59 05:40 WBC 10.93 H RBC 2.85 L Hgb 8.3 L Hct 25.8 L MCV 90.5 MCH 29.1 MCHC 32.2 RDW Std Deviation 48.4 H RDW Coeff of Sharita 14.8 H Plt Count 367 MPV 8.7 L PT 14.3 H INR 1.4 H Sodium 141 141 Potassium 3.4 L 3.3 L Chloride 114 H 114 H Carbon Dioxide 17 L 18 L Anion Gap 10 9 BUN 52 H 51 H Creatinine 9.65 H* 9.20 H* D Est Cr Clr Drug Dosing 10.5 11.0 eGFR 5.47 5.79 BUN/Creatinine Ratio 5.4 L 5.5 L Glucose 118 H 95 Calcium 8.1 L 7.8 L PG Care Time/CCT Total # of Minutes Spent Total Time Spent with Patient: Total time spent is greater than 50% in coordination of care (as documented) at patient's floor/unit and/or counseling patient: Coding Level of Care Code 93124 SUB INP/OBS CARE 3/50MIN Diagnoses GAYATRI (acute kidney injury) N17.9 Ileus K56.7 COVID U07.1 Lymphoma C85.90
[2024-11-18] MEDS: POTASSIUM CHLORIDE / WTR 10 MEQ/100 ML PLCT IV SCH (10:15)
--- NOTE | 2024-11-18 13:05 | Billing Data ---
Date of Service November 18, 2024 Coding Level of Care Code 11431 SUB INP/OBS CARE MIN
[2024-11-18 17:42] LABS: Anion Gap 10.0 (3-11); Blood Urea Nitrogen 51.0 mg/dl (6-23); Calcium 7.8 mg/dl (8.6-10.3); Carbon Dioxide 17.0 mmol/L (21-32); Chloride 114.0 mmol/L (98-107); Creatinine Clr Calc Pharmacy 11.5 ml/min; Glucose 107.0 mg/dl (70-99(Fasting)); Potassium 3.7 mmol/L (3.5-5.1); Sodium 141.0 mmol/L (136-145)
[2024-11-19 08:17] LABS: Anion Gap 8.0 (3-11); Blood Urea Nitrogen 51.0 mg/dl (6-23); Calcium 7.9 mg/dl (8.6-10.3); Carbon Dioxide 20.0 mmol/L (21-32); Chloride 115.0 mmol/L (98-107); Creatinine Clr Calc Pharmacy 11.8 ml/min; Glucose 96.0 mg/dl (70-99(Fasting)); Magnesium 1.8 mg/dl (1.7-2.4); Potassium 3.5 mmol/L (3.5-5.1); Sodium 143.0 mmol/L (136-145)
--- NOTE | 2024-11-19 08:43 | Hospitalist Progress Note ---
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 #GAYATRI - Uptrending Cr levels indicative of acute kidney injury (highest Cr -9.75) - UA shows +LE, increased WBC count, trace ketones; cultures negative - Per nephro team, likely ATN related to combined effect of supratherapeutic levels of vancomycin previously administered + hypotension + IV contrast - Record strict I's/O's - Medications reviewed by nephrology team, stated appropriate for kidney function - No current acidemia or hyperkalemia noted in labs, monitor - Renal US shows no evidence of obstructive uropathy - KUB 11/11: mildly air distended colon, apparent partial effacement of haustral markings, maybe consistent with colitis, no evidence of SBO - multiple episodes of quick runs of SVT with HR in 200s previously, asymptomatic, started on 12.5 mg BID Metoprolol - Nephro team states he is now in recovery mode for ATN, provided furosemide to assist with diuresis - Repeat metabolic panel daily in AM #Ileus/Malnutrition Risk - KUB 11/16 shows evidence of ileus - Changed pain regimen to oxycodone 5mg BID PRN + acetaminophen 650mg PRN - Increase Protonix to BID, scheduled Zofran daily, Pepcid BID, Carafate QID - Consider NG tube in future - Attempted scheduled Miralax BID, patient declines - Could be related to oxycodone medication use, we will try Rilistor 8mg q2days - Discussed importance of increasing nutritional intake, 2200 calories per day based on basal energy expenditure - Started Remeron 15mg daily at bedtime to assist with appetite stimulation 11/19 #Fever in neutropenic patient - Dx with angioimmunoblastic lymphoma on 10/17 - Now afebrile with previous fever of 39 C - may be due to COVID vs gastroenteritis, or bacterial conjunctivitis - Neutropenic precautions removed due to increasing WBC count - CXR unremarkable, CT abd without apparent acute process - blood cx were negative x 48 hours - c diff negative - Vancomycin d/c'ed, Zosyn d/c'ed by ID due to negative blood cultures and improving neutropenia - IVF 80/hr x1 bag #Lymphoma/Splenic mass - 11/04 CT abd showed splenomegaly with a lesion measuring ~13 x 10 mm. Few prominent lymph nodes at lennox hepatis and adjacent to the splenic hilum with the largest measuring 17 mm. - Port placed for treatment. First and only dose of immunotherapy so far was on 10/30. Next scheduled for 11/20. Patient aware he may need to reschedule this. - Abd. pain likely from mass effect of splenic mass - Oxycodone 5mg BID PRN + acetaminophen 650mg - Follows with Dr Hodges with local oncology - Magic Mouthwash to assist with mouth sores to use as needed - Design Inserter consult for nutrition assessment and assist with appetite #Transaminitis - on admission; AST 71, ALT 89, Tbili 1.5 - no acute process noted on CTAP - has had mild transaminitis on prior labs dating back to 02/2024 and at that time hep B and C negative, hemochromatosis tested and negative, HAKEEM+ - will continue to monitor given very mild but if worsening could consider further evaluation #COVID - Tested positive in the ED but asymptomatic except for chronic cough since June. Treatment not needed at this point #Cough - Tessalon Perles did not work. - Ordered Dextromethorphan. Worked #Hemorrhoids - Ordered Hydrocortisone 1% cream BID #Diarrhea - d/c Imodium in lieu of recent ileus #Aortic Aneurysm/HTN - Low BP on admission- held home amlodipine - Pressures currently 90-100s/60s, fluids managed by nephrology - f/u with cardiology for surgery Code status: full code Disposition: med-surg VTE ppx: Heparin 5000 units Diet: regular Admission and Anticipated Discharge Date Admission Date: November 05, 2024 Supervising Physician Co-Signing Physician Notes I personally examined the patient and verified all mcwilliams points of history and exam, discussed case, and agree with decision making with Dr Benson still holding emesis bag and still not eating great, but also notes that he's feeling good enough overall that if it wasn't for the ongoing renal failure issues he'd be asking to go home vitals noted nad heent nc at mmm breathingunlabored no accessory muscles good effort skin no rashes no pallor or icterus neuro no focal deficits Neutropenic feverresolved. Was likely viral acute renal failureATNfortunately no pulmonary edema or refractory hyperkalemia. Appreciate nephrology assistance. improving/recovery phase Nausea/severe protein calorie malnutrition (about 45 pounds of weight loss prior to admission)continue to discuss calorie goals. 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 Patient states he ate lunch yesterday and was able to keep it down. Did not have appetite for dinner. States he ate food before taking his Zofran, and had some dry heaving this morning. His urine production has improved. He had 3 BM last night - all regular consistency. States he has a dry mouth. Pain is well controlled. Review of Systems Constitutional: as per Subjective / HPI Physical Exam Constitutional: WD/WN, vitals as above Respiratory: normal respiratory effort, lungs clear to auscultation normal respiratory effort Auscultation: lungs clear to auscultation bilaterally Cardiovascular: RRR, no murmur, no edema Rate/Rhythm: regular rate and regular rhythm Heart Sounds: normal S1 and normal S2 Extremities: + edema (2+ pitting edema in blLE) Gastrointestinal (Abdomen): Inspection/Auscultation: normal bowel sounds Percussion/Palpation: + abdomen tender (diffuse abdominal tenderness, worse in LUQ and LLQ), abdomen soft and normal to percussion; no guarding and abdomen not rigid Skin: no rashes, warm and dry Psychiatric: A+Ox3, euthymic affect Results & Data Results & Data Vital Signs (Past 12 Hours) Vital Signs Temp Pulse Pulse Resp BP BP Pulse Ox 11/19/24 08:00 37.1 C 86 18 112/88 99 11/19/24 03:25 36.8 C 81 18 131/76 96 11/19/24 01:00 74 11/18/24 22:23 36.7 C 77 18 131/81 97 O2 Del Method 11/19/24 08:00 Room Air 11/19/24 03:25 Room Air 11/19/24 01:00 11/18/24 22:23 Room Air Resident Activity Tracking Resident Involvement: Resident Care Provided Care Provided: Adult Hospital Medicine
--- NOTE | 2024-11-19 11:08 | Nephrology Progress Note ---
Date of Service November 19, 2024 Assessment & Plan (1) GAYATRI (acute kidney injury): Plan: * ATN (multifactorial - CLYDE, NSAID administration, hypotension) * Now in recovery phase. Cr improved from 9.65 to 8.53 over last 4 days. Nonoliguric. UO 877 last 24 hours. * Will provide furosemide to promote diuresis and supplement serum K * Monitor daily BMP (2) Ileus: Plan: * Clinical ileus * Serum K has been corrected * Recommend liquid to soft diet only (3) COVID: Plan: * Clinically improving. 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 LN [place] [facility] [place] - Francis is advised that this will likely need to be rescheduled. Admission and Anticipated Discharge Date Admission Date: November 05, 2024 Subjective Mr. Tejeda was evaluated in his hospital room this morning. He complains of nausea but denies abdominal pain. He reports dry mouth and difficulty swallowing solid food Review of Systems Constitutional: no fever Eyes: no problem reported Ear, Nose, Mouth, Throat: no problem reported Respiratory: no dyspnea Cardiovascular: no chest pain Gastrointestinal: no abdominal pain Genitourinary: no dysuria Musculoskeletal: no problem reported Integumentary: no rash Neurologic: no problem reported Psychiatric: no problem reported Physical Exam Constitutional: not in distress Eyes: PERRL, conjunctivae normal, anicteric sclerae ENMT: external ear and nose normal, oropharynx normal Neck: trachea midline, no thyromegaly Respiratory: normal respiratory effort, lungs clear to auscultation Cardiovascular: Rate/Rhythm: regular rate and regular rhythm Extremities: + edema (2+ dependent edema) Gastrointestinal (Abdomen): Inspection/Auscultation: + abdomen distended Percussion/Palpation: + abdomen tender and abdomen soft; no guarding Skin: no rashes, warm and dry Neurologic: no focal motor deficits Results & Data Vital Signs (Past 12 Hours) Vital Signs Temp Pulse Pulse Resp BP BP Pulse Ox 11/19/24 08:00 37.1 C 86 18 112/88 99 11/19/24 03:25 36.8 C 81 18 131/76 96 11/19/24 01:00 74 O2 Del Method 11/19/24 08:00 Room Air 07/30/25 03:25 Room Air 11/19/24 01:00 Laboratory Results Laboratory Results - last 24 hr 11/18/24 11/19/24 16:48 07:17 Sodium 141 143 Potassium 3.7 3.5 Chloride 114 H 115 H Carbon Dioxide 17 L 20 L Anion Gap 10 8 BUN 51 H 51 H Creatinine 8.77 H* D 8.53 H* Est Cr Clr Drug Dosing 11.5 11.8 eGFR 6.13 6.34 BUN/Creatinine Ratio 5.8 L 6.0 L Glucose 107 H 96 Calcium 7.8 L 7.9 L Magnesium 1.8 PG Care Time/CCT Total # of Minutes Spent Total Time Spent with Patient: Total time spent is greater than 50% in coordination of care (as documented) at patient's floor/unit and/or counseling patient: Coding Level of Care Code 30686 SUB INP/OBS CARE 3/50MIN Diagnoses GAYATRI (acute kidney injury) N17.9 Ileus K56.7 COVID U07.1 Lymphoma C85.90
[2024-11-19] MEDS: POTASSIUM CHLORIDE / WTR 20 MEQ/100 ML PLCT IV ONE (11:30)
[2024-11-19] MEDS: FUROSEMIDE 40 MG/4 ML VIAL IV ONE (11:30)
[2024-11-19] MEDS: METOCLOPRAMIDE HCL 5 MG TABLET PO SCH (13:49)
--- NOTE | 2024-11-19 17:53 | Billing Data ---
Date of Service November 19, 2024 Coding Level of Care Code 92634 SUB INP/OBS CARE MIN
[2024-11-19] MEDS: MIRTAZAPINE TAB 15 MG TAB PO SCH (20:30)
--- NOTE | 2024-11-20 09:07 | Nephrology Progress Note ---
Date of Service November 20, 2024 Assessment & Plan (1) GAYATRI (acute kidney injury): Plan: * ATN (multifactorial - CLYDE, NSAID administration, hypotension) * Now in recovery phase. Cr improved from 8.7 to 8.5 Nonoliguric. UO 1400 cc last 24 hours. * Continue furosemide to promote diuresis. Will supplement serum K * Monitor daily BMP (2) Ileus: Plan: * Clinical ileus * Serum K has been corrected * Recommend liquid to soft diet only (3) COVID: Plan: * Clinically improving. 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 LN biopsy scheduled at [facility] [place], [place] next week - Francis is advised that this will likely need to be rescheduled. Admission and Anticipated Discharge Date Admission Date: November 05, 2024 Subjective Mr. Tejeda was evaluated in his hospital room this morning. He reports one BM this morning. Abdomen is less distended. He reports improved UO Review of Systems Constitutional: no fever Eyes: no problem reported Ear, Nose, Mouth, Throat: no problem reported Respiratory: no dyspnea Cardiovascular: no chest pain Gastrointestinal: no abdominal pain Genitourinary: no dysuria Musculoskeletal: no problem reported Integumentary: no rash Neurologic: no problem reported Psychiatric: no problem reported Physical Exam Constitutional: not in distress Eyes: PERRL, conjunctivae normal, anicteric sclerae ENMT: external ear and nose normal, oropharynx normal Neck: trachea midline, no thyromegaly Respiratory: normal respiratory effort, lungs clear to auscultation Cardiovascular: Rate/Rhythm: regular rate and regular rhythm Extremities: + edema (2+ dependent edema) Gastrointestinal (Abdomen): Inspection/Auscultation: + abdomen distended Percussion/Palpation: + abdomen tender and abdomen soft; no guarding Skin: no rashes, warm and dry Neurologic: no focal motor deficits Results & Data Vital Signs (Past 12 Hours) Vital Signs Temp Pulse Resp BP BP Pulse Ox O2 Del Method 11/20/24 08:50 37.1 C 86 20 149/73 H 96 Room Air 11/19/24 21:20 36.9 C 83 16 157/90 H 95 Room Air Laboratory Results Laboratory Results - last 24 hr 11/20/24 08:15 WBC 10.16 RBC 2.99 L Hgb 9.0 L Hct 26.8 L MCV 89.6 MCH 30.1 MCHC 33.6 RDW Std Deviation 47.3 H RDW Coeff of Sharita 14.8 H Plt Count 359 MPV 8.7 L Immature Gran % (Auto) 8.1 Neut % (Auto) 74.1 Lymph % (Auto) 6.1 [place] % (Auto) 10.4 Eos % (Auto) 0.0 Baso % (Auto) 1.3 Neut # (Auto) 7.53 H Lymph # (Auto) 0.62 L [place] # (Auto) 1.06 H Eos # (Auto) 0.00 Baso # (Auto) 0.13 Immature Gran # (Auto) 0.82 H Sodium 145 Potassium 3.4 L Chloride 116 H Carbon Dioxide 19 L Anion Gap 10 BUN 49 H Creatinine 7.88 H* D Est Cr Clr Drug Dosing 12.8 eGFR 6.97 BUN/Creatinine Ratio 6.2 L Glucose 95 Calcium 8.0 L PG Care Time/CCT Total # of Minutes Spent Total Time Spent with Patient: Total time spent is greater than 50% in coordination of care (as documented) at patient's floor/unit and/or counseling patient: Coding Level of Care Code 09226 SUB INP/OBS CARE 3/50MIN Diagnoses GAYATRI (acute kidney injury) N17.9 Ileus K56.7 COVID U07.1 Lymphoma C85.90
[2024-11-20 09:22] LABS: Hematocrit (blood only) 26.8 % (42.0-52.0); Hemoglobin 9.0 g/dl (14.0-18.0); Mean Corpuscular Hemoglobin 30.1 pg (25.0-34.0); Mean Corpuscular Volume 89.6 fL (80.0-100.0); Platelet Count 359 K/uL (130-400); RDW Standard Deviation 47.3 fL (36.4-46.3); Red Blood Count 2.99 M/uL (4.70-6.10); White Blood Count 10.16 K/ul (4.8-10.8)
--- NOTE | 2024-11-20 09:24 | Hospitalist Progress Note ---
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 #GAYATRI - Uptrending Cr levels indicative of acute kidney injury (highest Cr - 9.75) - UA shows +LE, increased WBC count, trace ketones; cultures negative - Per nephro team, likely ATN related to combined effect of supratherapeutic levels of vancomycin previously administered + hypotension + IV contrast - Record strict I's/O's - Medications reviewed by nephrology team, stated appropriate for kidney function - No current acidemia or hyperkalemia noted in labs, monitor - Renal US shows no evidence of obstructive uropathy - KUB 11/11: mildly air distended colon, apparent partial effacement of haustral markings, maybe consistent with colitis, no evidence of SBO - multiple episodes of quick runs of SVT with HR in 200s previously, asymptomatic, started on 12.5 mg BID Metoprolol - Nephro team states he is now in recovery mode for ATN, provided furosemide to assist with diuresis - Repeat metabolic panel daily in AM to assure decreasing Cr levels #Ileus/Malnutrition Risk - KUB 11/16 shows evidence of ileus - Changed pain regimen to oxycodone 5mg BID PRN + acetaminophen 650mg PRN - Increase Protonix to BID, scheduled Zofran daily, Pepcid BID, Carafate QID - Consider NG tube in future - Attempted scheduled Miralax BID, patient declines - Could be related to oxycodone medication use, we will try Rilistor 8mg q2days - Discussed importance of increasing nutritional intake, 2200 calories per day based on basal energy expenditure, continue to discuss calorie intake goals - Started Remeron 15mg daily at bedtime to assist with appetite stimulation 11/19 #Fever in neutropenic patient - Dx with angioimmunoblastic lymphoma on 10/17 - Now afebrile with previous fever of 39 C - may be due to COVID vs gastroenteritis, or bacterial conjunctivitis - Neutropenic precautions removed due to increasing WBC count - CXR unremarkable, CT abd without apparent acute process - blood cx were negative x 48 hours - c diff negative - Vancomycin d/c'ed, Zosyn d/c'ed by ID due to negative blood cultures and improving neutropenia - IVF 80/hr x1 bag #Lymphoma/Splenic mass - 11/04 CT abd showed splenomegaly with a lesion measuring ~13 x 10 mm. Few prominent lymph nodes at lennox hepatis and adjacent to the splenic hilum with the largest measuring 17 mm. - Port placed for treatment. First and only dose of immunotherapy so far was on 10/30. Next scheduled for 11/20. Patient aware he may need to reschedule this. - Abd. pain likely from mass effect of splenic mass - Oxycodone 5mg BID PRN + acetaminophen 650mg - Follows with Dr Hodges with local oncology - Magic Mouthwash to assist with mouth sores to use as needed - Swimming Pool Serviceperson consult for nutrition assessment and assist with appetite #Transaminitis - on admission; AST 71, ALT 89, Tbili 1.5 - no acute process noted on CTAP - has had mild transaminitis on prior labs dating back to 02/2024 and at that time hep B and C negative, hemochromatosis tested and negative, HAKEEM+ - will continue to monitor given very mild but if worsening could consider further evaluation #COVID - Tested positive in the ED but asymptomatic except for chronic cough since June. Treatment not needed at this point #Cough - Tessalon Perles did not work. - Ordered Dextromethorphan. Worked #Hemorrhoids - Ordered Hydrocortisone 1% cream BID #Diarrhea - d/c Imodium in lieu of recent ileus #Aortic Aneurysm/HTN - Low BP on admission- held home amlodipine - Pressures currently 90-100s/60s, fluids managed by nephrology - f/u with cardiology for surgery Code status: full code Disposition: med-surg VTE ppx: Heparin 5000 units Diet: regular Admission and Anticipated Discharge Date Admission Date: November 05, 2024 Supervising Physician Co-Signing Physician Notes I personally examined the patient and verified all mcwilliams points of history and exam, discussed case, and agree with decision making with Dr Benson still nauseated off and on but no actual vomiting just dry heaving. eating better overall than previous days. feels up to going home except for knows that kidney function not better enough yet. vitals noted nad heent nc at mmm breathingunlabored no accessory muscles good effort skin no rashes no pallor or icterus neuro no focal deficits Neutropenic feverresolved. Was likely viral acute renal failureATNfortunately no pulmonary edema or refractory hyperkalemia. Appreciate nephrology assistance. improving/recovery phase. Cr now 7.88 Nausea/severe protein calorie malnutrition (about 45 pounds of weight loss prior to admission)continue to discuss calorie goals. 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 Patient states he was able to have breakfast, lunch, and dinner. He still has dry heaving intermittently throughout day, specifically today morning after taking his medications. However, he feels like he is doing a lot better. Last BM was this morning and was regular. Review of Systems Constitutional: as per Subjective / HPI Physical Exam Constitutional: WD/WN, vitals as above Respiratory: normal respiratory effort, lungs clear to auscultation Cardiovascular: Rate/Rhythm: regular rate and regular rhythm Heart Sounds: normal S1 and normal S2 Extremities: + edema (1+ pitting edema in blLE) Gastrointestinal (Abdomen): Inspection/Auscultation: normal bowel sounds Percussion/Palpation: + abdomen tender (diffuse abdominal tenderness, worse in LUQ and LLQ), abdomen soft and normal to percussion; no guarding and abdomen not rigid Skin: no rashes, warm and dry Psychiatric: A+Ox3, euthymic affect Results & Data Results & Data Vital Signs (Past 12 Hours) Vital Signs Temp Pulse Resp BP Pulse Ox O2 Del Method 11/20/24 08:50 37.1 C 86 20 149/73 H 96 Room Air Resident Activity Tracking Resident Involvement: Resident Care Provided Care Provided: Adult Hospital Medicine
[2024-11-20 09:47] LABS: Immature Granulocytes # (auto) 0.82 K/uL (0.01-0.20); Immature Granulocytes % (auto) 8.1 %
[2024-11-20 09:51] LABS: Anion Gap 10.0 (3-11); Blood Urea Nitrogen 49.0 mg/dl (6-23); Calcium 8.0 mg/dl (8.6-10.3); Carbon Dioxide 19.0 mmol/L (21-32); Chloride 116.0 mmol/L (98-107); Creatinine Clr Calc Pharmacy 12.8 ml/min; Glucose 95.0 mg/dl (70-99(Fasting)); Potassium 3.4 mmol/L (3.5-5.1); Sodium 145.0 mmol/L (136-145)
[2024-11-20] MEDS: POTASSIUM CHLORIDE / WTR 10 MEQ/100 ML PLCT IV SCH (12:35)
--- NOTE | 2024-11-20 12:59 | Billing Data ---
Date of Service November 20, 2024 Coding Level of Care Code 57661 SUB INP/OBS CARE MIN
[2024-11-21 06:31] LABS: Hematocrit (blood only) 25.2 % (42.0-52.0); Hemoglobin 8.1 g/dl (14.0-18.0); Mean Corpuscular Hemoglobin 29.0 pg (25.0-34.0); Mean Corpuscular Volume 90.3 fL (80.0-100.0); Platelet Count 302 K/uL (130-400); RDW Standard Deviation 47.1 fL (36.4-46.3); Red Blood Count 2.79 M/uL (4.70-6.10); White Blood Count 10.49 K/ul (4.8-10.8)
[2024-11-21 06:47] LABS: Anion Gap 9.0 (3-11); Blood Urea Nitrogen 46.0 mg/dl (6-23); Calcium 7.7 mg/dl (8.6-10.3); Carbon Dioxide 18.0 mmol/L (21-32); Chloride 118.0 mmol/L (98-107); Creatinine Clr Calc Pharmacy 14.3 ml/min; Glucose 100.0 mg/dl (70-99(Fasting)); Potassium 3.4 mmol/L (3.5-5.1); Sodium 145.0 mmol/L (136-145)
[2024-11-21] MEDS: POTASSIUM CHLORIDE CRTAB 20 MEQ TABCR PO ONE (08:05)
--- NOTE | 2024-11-21 09:20 | Nephrology Progress Note ---
Date of Service November 21, 2024 Assessment & Plan (1) GAYATRI (acute kidney injury): Plan: * ATN (multifactorial - CLYDE, NSAID administration, hypotension) * Now in recovery phase. Cr improved from 8.7 to 7.0 today. Nonoliguric. UO 700 cc last shift. * Continue furosemide to promote diuresis. 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 Tejeda was evaluated in his hospital room this morning. He reports several BM this morning. Wants to advance diet to solid foods Review of Systems Constitutional: no fever Eyes: no problem reported Ear, Nose, Mouth, Throat: no problem reported Respiratory: no dyspnea Cardiovascular: no chest pain Gastrointestinal: no abdominal pain Genitourinary: no dysuria Musculoskeletal: no problem reported Integumentary: no rash Neurologic: no problem reported Psychiatric: no problem reported Physical Exam Constitutional: not in distress Eyes: PERRL, conjunctivae normal, anicteric sclerae ENMT: external ear and nose normal, oropharynx normal Neck: trachea midline, no thyromegaly Respiratory: normal respiratory effort, lungs clear to auscultation Cardiovascular: Rate/Rhythm: regular rate and regular rhythm Extremities: + edema (1+ dependent edema) Gastrointestinal (Abdomen): Inspection/Auscultation: + abdomen distended Percussion/Palpation: abdomen soft; no guarding Skin: no rashes, warm and dry Neurologic: no focal motor deficits Results & Data Vital Signs (Past 12 Hours) Laboratory Results - last 24 hr 11/20/24 11/21/24 08:15 05:40 WBC 10.16 10.49 RBC 2.99 L 2.79 L Hgb 9.0 L 8.1 L Hct 26.8 L 25.2 L MCV 89.6 90.3 MCH 30.1 29.0 MCHC 33.6 32.1 RDW Std Deviation 47.3 H 47.1 H RDW Coeff of Sharita 14.8 H 14.7 H Plt Count 359 302 MPV 8.7 L 8.7 L Immature Gran % (Auto) 8.1 Neut % (Auto) 74.1 Lymph % (Auto) 6.1 [place] % (Auto) 10.4 Eos % (Auto) 0.0 Baso % (Auto) 1.3 Neut # (Auto) 7.53 H Lymph # (Auto) 0.62 L [place] # (Auto) 1.06 H Eos # (Auto) 0.00 Baso # (Auto) 0.13 Immature Gran # (Auto) 0.82 H Sodium 145 145 Potassium 3.4 L 3.4 L Chloride 116 H 118 H Carbon Dioxide 19 L 18 L Anion Gap 10 9 BUN 49 H 46 H Creatinine 7.88 H* D 7.08 H* D Est Cr Clr Drug Dosing 12.8 14.3 eGFR 6.97 7.93 BUN/Creatinine Ratio 6.2 L 6.5 L Glucose 95 100 H Calcium 8.0 L 7.7 L PG Care Time/CCT Total # of Minutes Spent Total Time Spent with Patient: Total time spent is greater than 50% in coordination of care (as documented) at patient's floor/unit and/or counseling patient: Coding Level of Care Code 14309 SUB INP/OBS CARE 3/50MIN Diagnoses GAYATRI (acute kidney injury) N17.9 Ileus K56.7 COVID U07.1 Lymphoma C85.90
--- NOTE | 2024-11-21 09:39 | Hospitalist Progress Note ---
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 #GAYATRI - Uptrending Cr levels indicative of acute kidney injury (highest Cr - 9.75) - UA shows +LE, increased WBC count, trace ketones; cultures negative - Per nephro team, likely ATN related to combined effect of supratherapeutic levels of vancomycin previously administered + hypotension + IV contrast - Record strict I's/O's - Medications reviewed by nephrology team, stated appropriate for kidney function - No current acidemia or hyperkalemia noted in labs, monitor - Renal US shows no evidence of obstructive uropathy - KUB 11/11: mildly air distended colon, apparent partial effacement of haustral markings, maybe consistent with colitis, no evidence of SBO - multiple episodes of quick runs of SVT with HR in 200s previously, asymptomatic, started on 12.5 mg BID Metoprolol - Nephro team states he is now in recovery mode for ATN, provided furosemide to assist with diuresis - Repeat metabolic panel daily in AM to assure decreasing Cr levels - K+ 3.4 on 11/21, repleted #Ileus/Malnutrition Risk - KUB 11/16 shows evidence of ileus - Changed pain regimen to oxycodone 5mg BID PRN + acetaminophen 650mg PRN - Increase Protonix to BID, scheduled Zofran daily, Pepcid BID, Carafate QID; will stop Carafate 11/21/24 and try Maalox 15mL with each meal - Attempted scheduled Miralax BID, patient declines - Could be related to oxycodone medication use, we will try Rilistor 8mg q2days - Discussed importance of increasing nutritional intake, 2200 calories per day based on basal energy expenditure, continue to discuss calorie intake goals - Started Remeron 15mg daily at bedtime to assist with appetite stimulation 11/19 #Fever in neutropenic patient - Dx with angioimmunoblastic lymphoma on 10/17 - Now afebrile with previous fever of 39 C - may be due to COVID vs gastroenteritis, or bacterial conjunctivitis - Neutropenic precautions removed due to increasing WBC count - CXR unremarkable, CT abd without apparent acute process - blood cx were negative x 48 hours - c diff negative - Vancomycin d/c'ed, Zosyn d/c'ed by ID due to negative blood cultures and improving neutropenia - IVF 80/hr x1 bag #Lymphoma/Splenic mass - 11/04 CT abd showed splenomegaly with a lesion measuring ~13 x 10 mm. Few promi nent lymph nodes at lennox hepatis and adjacent to the splenic hilum with the largest measuring 17 mm. - Port placed for treatment. First and only dose of immunotherapy so far was on 10/30. Next scheduled for 11/20. Patient aware he may need to reschedule this. - Abd. pain likely from mass effect of splenic mass - Oxycodone 5mg BID PRN + acetaminophen 650mg - Follows with Dr Hodges with local oncology - Magic Mouthwash to assist with mouth sores to use as needed - Hot Dip Tinning Supervisor consult for nutrition assessment and assist with appetite #Transaminitis - on admission; AST 71, ALT 89, Tbili 1.5 - no acute process noted on CTAP - has had mild transaminitis on prior labs dating back to 02/2024 and at that time hep B and C negative, hemochromatosis tested and negative, HAKEEM+ - will continue to monitor given very mild but if worsening could consider further evaluation #COVID - Tested positive in the ED but asymptomatic except for chronic cough since June. Treatment not needed at this point #Cough - Tessalon Perles did not work. - Ordered Dextromethorphan. Worked #Hemorrhoids - Ordered Hydrocortisone 1% cream BID #Diarrhea - d/c Imodium in lieu of recent ileus #Aortic Aneurysm/HTN - Low BP on admission- held home amlodipine - Pressures currently 90-100s/60s, fluids managed by nephrology - f/u with cardiology for surgery Code status: full code Disposition: med-surg VTE ppx: Heparin 5000 units Diet: regular Admission and Anticipated Discharge Date Admission Date: November 05, 2024 Supervising Physician Co-Signing Physician Notes I personally examined the patient and verified all mcwilliams points of history and exam, discussed case, and agree with decision making with Dr Benson still some nausea but doing well enough he'd really like to go home - understands what we're seeing with creatinine and why he's still inpatient. vitals noted nad heent nc at mmm breathing unlabored no accessory muscles good effort skin no rashes no pallor or icterus neuro no focal deficits Neutropenic feverresolved. Was likely viral acute renal failureATNfortunately no pulmonary edema or refractory hyperkalemia. Appreciate nephrology assistance. improving/recovery phase. showing good and steady improvement Nausea/severe protein calorie malnutrition (about 45 pounds of weight loss prior to admission)continue to discuss calorie goals. continues to slowly do better; stop carafate (seems the taste actually nauseates him) and switch to maalox QAC (similar mucosa benefit but can then replace relistor to help continue bowel regimen after dc) Lymphomaongoing outpatient follow-up DVT prophylaxisheparin subcu hopefully home soon Subjective Mr. Tejeda is doing well this AM. He says he was able to eat lunch and breakfast yesterday but did not have appetite for dinner. He feels as if he is eating more overall though. Will have some occasional dry heaving. Feels as if the carafate is worsening the dry heaving. Regular BMs. Urine output has increased. Review of Systems Constitutional: as per Subjective / HPI Physical Exam Constitutional: WD/WN, vitals as above Respiratory: normal respiratory effort, lungs clear to auscultation Cardiovascular: Rate/Rhythm: regular rate and regular rhythm Heart Sounds: normal S1 and normal S2 Extremities: + edema (1+ pitting edema in blLE) Gastrointestinal (Abdomen): Inspection/Auscultation: normal bowel sounds Percussion/Palpation: + abdomen tender (diffuse abdominal tenderness, worse in LUQ and LLQ), abdomen soft and normal to percussion; no guarding and abdomen not rigid Skin: no rashes, warm and dry Psychiatric: A+Ox3, euthymic affect Resident Activity Tracking Resident Involvement: Resident Care Provided Care Provided: Adult Hospital Medicine
[2024-11-21] MEDS: POTASSIUM CHLORIDE / WTR 10 MEQ/100 ML PLCT IV SCH (11:37)
--- NOTE | 2024-11-21 14:56 | Billing Data ---
Date of Service November 21, 2024 Coding Level of Care Code 04623 SUB INP/OBS CARE MIN
[2024-11-21] MEDS: ALUMINUM/MAGNESIUM SUSP 30 ML UDC PO SCH (15:49)
[2024-11-21] MEDS: FAMOTIDINE 20 MG TAB PO SCH (15:52)
[2024-11-22 08:10] LABS: Hematocrit (blood only) 27.2 % (42.0-52.0); Hemoglobin 8.8 g/dl (14.0-18.0); Mean Corpuscular Hemoglobin 29.2 pg (25.0-34.0); Mean Corpuscular Volume 90.4 fL (80.0-100.0); Platelet Count 338 K/uL (130-400); RDW Standard Deviation 47.5 fL (36.4-46.3); Red Blood Count 3.01 M/uL (4.70-6.10); White Blood Count 10.36 K/ul (4.8-10.8)
[2024-11-22 08:24] VITALS: RESP 16; O2SAT 98
--- NOTE | 2024-11-22 08:24 | Hospitalist Progress Note ---
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 #GAYATRI - Uptrending Cr levels indicative of acute kidney injury (highest Cr - 9.75) - UA shows +LE, increased WBC count, trace ketones; cultures negative - Per nephro team, likely ATN related to combined effect of supratherapeutic levels of vancomycin previously administered + hypotension + IV contrast - Record strict I's/O's - Medications reviewed by nephrology team, stated appropriate for kidney function - No current acidemia or hyperkalemia noted in labs, monitor - Renal US shows no evidence of obstructive uropathy - KUB 11/11: mildly air distended colon, apparent partial effacement of haustral markings, maybe consistent with colitis, no evidence of SBO - multiple episodes of quick runs of SVT with HR in 200s previously, asymptomatic, started on 12.5 mg BID Metoprolol - Nephro team states he is now in recovery mode for ATN, provided furosemide to assist with diuresis - Repeat metabolic panel daily in AM to assure decreasing Cr levels - K+ 3.4 on 11/21, repleted Recs per Nephro: -- Currently getting IV normal saline, plan to repeat the lab this afternoon if kidney function electrolyte status stable or better, okay to discharge slowly close outpatient lab monitoring. Encouraged to maintain increased fluid intake, continue to avoid all nephrotoxic medications including NSAIDs. -- Advised to have lab done on Sunday and Sunday and then weekly until kidney function recover --Will schedule outpatient follow-up with Dr. Marcano next few days. #Ileus/Malnutrition Risk - KUB 11/16 shows evidence of ileus - Changed pain regimen to oxycodone 5mg BID PRN + acetaminophen 650mg PRN - Increase Protonix to BID, scheduled Zofran daily, Pepcid BID, Carafate QID; will stop Carafate 11/21/24 and try Maalox 15mL with each meal - Attempted scheduled Miralax BID, patient declines - Could be related to oxycodone medication use, we will try Rilistor 8mg q2days - Discussed importance of increasing nutritional intake, 2200 calories per day b ased on basal energy expenditure, continue to discuss calorie intake goals - Started Remeron 15mg daily at bedtime to assist with appetite stimulation 11/19 #Fever in neutropenic patient - Dx with angioimmunoblastic lymphoma on 10/17 - Now afebrile with previous fever of 39 C - may be due to COVID vs gastroenteritis, or bacterial conjunctivitis - Neutropenic precautions removed due to increasing WBC count - CXR unremarkable, CT abd without apparent acute process - blood cx were negative x 48 hours - c diff negative - Vancomycin d/c'ed, Zosyn d/c'ed by ID due to negative blood cultures and improving neutropenia - IVF 80/hr x1 bag #Lymphoma/Splenic mass - 11/04 CT abd showed splenomegaly with a lesion measuring ~13 x 10 mm. Few prominent lymph nodes at lennox hepatis and adjacent to the splenic hilum with the largest measuring 17 mm. - Port placed for treatment. First and only dose of immunotherapy so far was on 10/30. Next scheduled for 11/20. Patient aware he may need to reschedule this. - Abd. pain likely from mass effect of splenic mass - Oxycodone 5mg BID PRN + acetaminophen 650mg - Follows with Dr Hodges with local oncology - Magic Mouthwash to assist with mouth sores to use as needed - Die Attacher consult for nutrition assessment and assist with appetite #Transaminitis - on admission; AST 71, ALT 89, Tbili 1.5 - no acute process noted on CTAP - has had mild transaminitis on prior labs dating back to 02/2024 and at that time hep B and C negative, hemochromatosis tested and negative, HAKEEM+ - will continue to monitor given very mild but if worsening could consider further evaluation #COVID - Tested positive in the ED but asymptomatic except for chronic cough since June. Treatment not needed at this point #Cough - Tessalon Perles did not work. - Ordered Dextromethorphan. Worked #Hemorrhoids - Ordered Hydrocortisone 1% cream BID #Diarrhea - d/c Imodium in lieu of recent ileus #Aortic Aneurysm/HTN - Low BP on admission- held home amlodipine - Pressures currently 90-100s/60s, fluids managed by nephrology - f/u with cardiology for surgery Code status: full code Disposition: med-surg VTE ppx: Heparin 5000 units Diet: regular Admission and Anticipated Discharge Date Admission Date: November 05, 2024 Subjective No overnight events. Today he is feeling fine and ready to go home. He feels that being home would be therapeutic at this point. He stated his appetite improved and he ate dinner yesterday and breakfast this morning without any issues. He is tolerating the switch to Maalox well without complaints. He denies fever, chills, CP, cough, SOB, abdominal pain, constipation, diarrhea, or other complaints. Review of Systems Review of Systems: otherwise neg Physical Exam Physical Exam: GA: well groomed, well nourished male in no apparent distress. AAOx3 HEENT: head normocephalic, atraumatic. EOMI. No conjunctival pallor RESP: vesicular breath sounds b/l. No wheezes, rhonchi, or rales CARDIOVASCULAR: S1 and S2 heard. No murmurs, rubs, or gallops. Radial pulses 2+ b/l GI: Normoactive bowel sounds, no tenderness or masses felt to palpation, normal percussion MSK: no gross abnormalities or focal deficits SKIN: warm, dry EXTREMITITES: 2+ edema on shins b/l PSYCH: appropriate mood and affect NEURO: no focal deficits Results & Data Results & Data Vital Signs (Past 12 Hours) Vital Signs Temp Pulse Resp BP BP Pulse Ox O2 Del Method 11/22/24 08:23 37.1 C 85 16 154/93 H 98 Room Air 11/21/24 23:38 37.1 C 72 18 135/82 95 Room Air
[2024-11-22 08:44] LABS: Anion Gap 9.0 (3-11); Blood Urea Nitrogen 40.0 mg/dl (6-23); Calcium 8.0 mg/dl (8.6-10.3); Carbon Dioxide 19.0 mmol/L (21-32); Chloride 120.0 mmol/L (98-107); Creatinine Clr Calc Pharmacy 17.1 ml/min; Glucose 101.0 mg/dl (70-99(Fasting)); Potassium 3.8 mmol/L (3.5-5.1); Sodium 148.0 mmol/L (136-145)
[2024-11-22] MEDS: DEXTROSE 5% 1,000 ML IV SCH (09:56)
--- NOTE | 2024-11-22 11:05 | Nephrology Progress Note ---
Date of Service November 22, 2024 Assessment & Plan (1) GAYATRI (acute kidney injury): (2) Fever and neutropenia: (3) COVID: (4) Lymphadenopathy: (5) Hypernatremia: (6) Metabolic acidosis: Plan 64 year-old male with PMH of hypertension, hyperlipidemia, BPH, and recent diagnosis of angioimmunoblastic T-cell lymphoma, started on BV+CHP (brentuximab vedotin, cyclophosphamide, doxorubicin, and prednisone and completed his first treatment on October 30. Admitted to [facility] on November 04 with neutropenic fevers and COVID. No h/o CKD, cr was 0.8 on admission kidney function progressively worse and through the hospitalization and creatinine peaked to 9.8 mg/dl. CT on admission demonstrated no evidence of obstruction. Urine microscopy is acellular. He has been nonoliguric and improved but last few days kidney function started to improve and creatinine this morning was down to 5.9. Has been having great urine output and significantly net negative. Has metabolic acidosis but potassium has been normal. Labs this morning showed sodium slightly elevated at 148. -- Currently getting IV normal saline, plan to repeat the lab this afternoon if kidney function electrolyte status stable or better, okay to discharge slowly close outpatient lab monitoring. Encouraged to maintain increased fluid intake, continue to avoid all nephrotoxic medications including NSAIDs. -- Advised to have lab done on Sunday and Sunday and then weekly until kidney function recover --Will schedule outpatient follow-up with Dr. Marcano next few days. Admission and Anticipated Discharge Date Admission Date: November 05, 2024 Subjective Francis was seen and evaluated this morning. He reports overall feeling well. Appetite has been slowly improving, has been having great urine output and net negative. Cr down to 5.9, Na 148 Review of Systems Review of Systems: All systems reviewed & are unremarkable except as noted in Subjective Physical Exam Constitutional: WD/WN, vitals as above no acute distress Eyes: + anicteric sclerae Respiratory: Auscultation: lungs clear to auscultation bilaterally Cardiovascular: Rate/Rhythm: regular rate and regular rhythm Heart Sounds: normal S1 and normal S2 Extremities: + edema (2+ b/l LE edema) Skin: no rashes, warm and dry Neurologic: no focal motor deficits Psychiatric: Orientation: alert and oriented x 3 Results & Data Vital Signs (Past 12 Hours) Vital Signs Temp Pulse Resp BP BP Pulse Ox O2 Del Method 11/22/24 09:47 87 140/85 11/22/24 08:23 37.1 C 85 16 154/93 H 98 Room Air 11/21/24 23:38 37.1 C 72 18 135/82 95 Room Air PG Care Time/CCT Total # of Minutes Spent Total Time Spent with Patient: Total time spent is greater than 50% in coordination of care (as documented) at patient's floor/unit and/or counseling patient: Coding Level of Care Code 65619 SUB INP/OBS CARE 2/35MIN Diagnoses GAYATRI (acute kidney injury) N17.9 Fever and neutropenia D70.9; R50.81 COVID U07.1 Lymphadenopathy R59.1 Hypernatremia E87.0 Metabolic acidosis E87.20
[2024-11-22 15:39] VITALS: TEMP 98.2
--- NOTE | 2024-11-22 16:07 | Discharge Summary ---
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 #ARF -multifactorial ATN, now improving. no hyperK no pulm edema - safe/stable for home given low risk and nice rate of improvement -avoid NSAIDs, stay hydrated #malnutrition - severe protein calorie malnutrition related to cancer/chemo/etc - protonix bid, pepcid bid, maalox AC has been helping some - obviously want to minimize when/if possible when he's feeling better - remeron started as appetite stimulant - continue zofran prn - extensive discussions on maintaining adequate nutrition, pt expresses understanding. #Fever in neutropenic patient - Dx with angioimmunoblastic lymphoma on 10/17 - he was febrile for days, covered with broad antibiotics per standard of care for neutropenic fever, but in the end the infectious causes almost certainly viral. He has now been off of antibiotics for over a week with no recurrence of fever or other infectious symptoms #Lymphoma/Splenic mass - outpatient follow-up #Transaminitis - nonspecific, outpatient follow-up #COVID - the most likely virus causing his neutropenic fever phenotype #Aortic Aneurysm/HTN - Low BP on admission- held home amlodipine - Pressures currently 90-100s/60s, amlodipine on hold at dischargeconsider resumption depending on his pressures as an outpatient - f/u with cardiology for surgery Notes For Next Care Provider Medication Changes From Visit see med list - extensive antiemetic/appetite/nausea regimen built; amlodipine on hold for now as well Admission HPI Per Admitting Provider Pt is a 64 yo male with a past med hx of 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 Pt states he had his first dose of immunotherapy last week on and initially felt okay and actually started to feel half decent on Sunday, then on Sunday started to feel generalized malaise and fatigue. He states he has a chronic cough which has not necessarily been worse. He states he sometimes can cough up some mucus which is clear and nonbloody. He has also noted some abdominal cramping the last few days and today has had nonbloody diarrhea. He states he flips back and forth between being constipated and having diarrhea, if he has diarrhea he takes imodium but then gets constipated and then takes miralax. No dysuria or blood in the urine. He states that on 11/04 he woke up with eye irritation and discharged, called the cancer center, they told him to see his eye doctor who dx him with bacterial conjunctivitis and gave him eye drops. He states throughout the day he then developed fever to 102F at home. He states he called the [facility] again and given the fever they urged him to come into the ED. He states on 11/04 he had some nausea and an episode of vomiting as well. No chest pain or SOB. No pain anywhere at the present. Updated Medication List Medication Instructions Recorded Confirmed Type aspirin 81 mg capsule 81 mg PO QAM preventative 11/20/22 11/05/24 History multivitamin 1 tab PO QAM 11/20/22 11/05/24 History ascorbic acid (vitamin C) 250 mg 500 mg PO QAM 08/28/23 11/05/24 History tablet (Vitamin C) icosapent ethyl 1 gram capsule 1 g PO BID 08/28/24 11/05/24 History (Vascepa) pravastatin 20 mg tablet 20 mg PO QAM 08/28/24 11/05/24 History magnesium 1 tab PO QPM 10/17/24 11/05/24 History tamsulosin 0.4 mg capsule (Flomax) 0.4 mg PO HS 10/17/24 11/05/24 History oxycodone 5 mg tablet 5 mg PO Q6H PRN pain #12 tabs 10/21/24 11/05/24 Rx prochlorperazine maleate 10 mg 10 mg PO UD PRN Nausea And Vomiting 11/05/24 11/05/24 History tablet aluminum-magnesium hydroxide 200 15 ml PO AC #1,000 mL 11/22/24 Rx mg-200 mg/5 mL oral suspension (MAG-AL) famotidine 20 mg tablet 20 mg PO Q12H #60 tabs 11/22/24 Rx mirtazapine 15 mg tablet 15 mg PO HS #30 tabs 11/22/24 Rx ondansetron 8 mg disintegrating 8 mg PO Q8 PRN Nausea And Vomiting 11/22/24 Rx tablet #30 tabs pantoprazole 40 mg tablet,delayed 40 mg PO BID #60 tabs 11/22/24 Rx release sodium bicarbonate 650 mg tablet 650 mg PO BID #30 tabs 11/22/24 Rx Hospital Stay Data Consultations 11/05/24 02:53 ED Decision to Admit Stat 11/09/24 07:42 Consult Infectious Diseases Routine 11/09/24 17:39 Consult Nephrology Routine 11/13/24 14:16 Consult Vascular Surgery Routine Diagnostic Imagining Performed 11/05/24 00:16 CT abd pelvis IV con only Stat 11/10/24 13:52 US Renal Bladder [US renal/blad retro comp] Routine Pending Results Patient Have Any Pending Studies at Discharge: No Discharge Instructions Given to Patient (Per Discharging Provider) renal failure -the kidney failure was a whole host of things all working together to cause what was called "acute tubular necrosis" or ATN. as we discussed, the tubules are the "business end" of filtering, but they're really susceptible to damage. when they get damaged, they off. fortunately, for most people (and what we're seeing with you) the tubules grow back. your kidney numbers are now improving daily and i would expect things to either continue to improve greatly, or hopefully even get back to more or less totally normal -the one thing to pay attention to would be breathing: while this wasn't you when the kidney failure was worse, and therefore there's no reason to think it would be you as the kidney failure is improving, one of the few things that can cause immediate danger in kidney failure is if someone has fluid in their lungs that we can't pull of with diuretics. therefore, if you were to feel new or worse shortness of breath (and often most subtly short of breath with walking or laying flat) i would definitely want you checked out right away. (certainly there's a whole slew of things that could cause those symptoms, but if you were feeling short of breath/short of breath walking that's new/worse, or short of breath laying down - that would be a reason to be seen) -Dr Olson has lab orders in place to get repeat kidney labs on sunday. they'll see what your results are and guide you from there (right now we're assuming that you'll need checked again a few days later) -to keep things on track, we'll want you to take steps to protect your kidneys from any new "insult": -stay well hydrated (drink a minimum of 60oz of fluid a day, ideally a bit more) -avoid anti-inflammatories (tylenol (acetaminophen) or oxycodone are OK) - avoid things like ibuprofen, naproxen, motrin, alleve, etc -the sodium bicarbonate is to help balance electrolytes/acid-base balance until your kidneys have improved more - hopefully this prescription is pretty short lived -your amlodipine (that you normally take for blood pressure) is currently "on hold" - mostly because your blood pressures have looked good without it. if your pressures were to rise again, then Dr Brown can restart it if needed malnutrition -as we've been discussing, keeping up with adequate nutrition is an absolutely "mission critical" part to this cancer journey - about half the time we see someone decline it's because of the cancer; about half the time it's because they get malnourished, and then they get weak, and then they suffer more fallout from the chemo or picker operator more infections -use the "budget" analogy for nutrition - we calculated that you'd need a minimum of about 2200 calories to fuel your body - think of that as needing a minimum of $2200 to pay rent, buy groceries, and pay the electric bill. you'd know then if you come up a little short, maybe you're going hungry - if you come up more short, they're cutting the power - if you come up WAY short, you're getting evicted. -with that in mind, the primary goal to maintain adequate nutrition is to get to a minimum of 2200 calories every day -in an ideal world, yes, cancer patients overall do better if the mainstay of their diet is plant based, and they get protein from lean sources (like fish) - but, as we've been discussing, in my experience those people only do a little better than the people who get to their calorie goal however the heck they can. and people who routinely hit their calorie goal (even with "bad for you foods") tend to do far, far better than people who routinely come up short on calories with "good for them" foods. (ie for you, it's better to get to 2200 with coke, boost, and ice cream than to get to 1000 with fish and broccoli) -track your calorie intake every day (start tomorrow, 11/23) - as we discussed it can be a lot easier if you use an vinh like [employer], [employer], or [employer]. those are all made to help people track their calories to lose weight, but if you just use it to track your intake it can make life easier. the vinh will "be mad at you" because ideally you'll be coming in above your calories every day, but obviously ignore that. also, since different apps use different math for your "calorie budget", but our pumper helper's calculations would be the most accurate, if the vinh sets a drastically different calorie goal when you plug in your age/height/weight; play around with your weight until the calorie target is around 2200 -when they day is tough (you're feeling sicker, you feel full way too easily, etc) that's when you'll really want to lean on using "cheaters" (things that are really dense in calories/it doesn't take a lot of volume of food to have a lot of calories in them) - the main cheaters we've been talking about are things like Coke (~10 calories per ounce), ice cream (measure it, but typically about 100 calories per scoop) or Boost/Ensure (which, depending on which one you buy, can have ~250, 350, or 550 calories per 8oz) -the goal is to not let your head hit the pillow without taking in 2200 calories -->bad days can happen. as we discussed, i have to teach with a goal of perfection, but of course perfection isn't realistic. as a reasonable rule, don't get too alarmed unless it's becomming a string of bad days in a row - reasonable "rule of thumb" would be 3 bad days probably should get looked it. the "looked at" can be figured out by you guys based on how long things have been bad, and how bad they are. if you're coming up a little short (say ~1900 calories) but you just can't get over the top, that could be a "talk to Dr Brown" and either a little rearranging of medications to help with nausea, or practical advice like starting the day with a "cheater" to get ahead early. if you're coming up really short (say ~1000 calories and you're feeling terrible) then it might be having to come back to the hospital for help nausea -there are so many different reasons for you to have nausea right now (the cancer itself, the chemo, recent covid, constipation, probably more) - that we're bringing a "full court press" to help at this time -currently we're sending you home on protonix (pantoprazole) twice a day, pepcid (famotidine) twice a day, maalox (10-15ml at each meal), zofran (ondansetron) as needed for nausea, and remeron (mirtazapine) at bedtime (it acts as a bit of an appetite stimulant) --->hopefully over the next week or so, Dr Brown can start to whittle things down. I think we'll probably want to keep the protonix at some degree, and since the oxycodone can cause constipation and the maalox can "pull double duty" of helping with nausea and helping with constipation, we'll probably keep that. the rest will be part of the "moving target" that will be your body as you go through this chemo journey - but when you're at a time that you're doing well enough to, we'd definitely love to have you on as little meds as possible, at least sometimes fevers -the infection that brought you here fortunately has totally resolved. as we discussed, by the nature of what they need to do in order to treat the lymphoma, this kind of chemo does often leave people susceptible to infections. with that in mind, don't get discouraged if you run into frequent infections and/or frequent hospitalizations right now. the goal is to treat the cancer, it's just that the treatment usually needs to be pretty aggressive, so this is the phase of the journey that just has a lot of lousiness to it. to do: -eat 2200 calories per day/track it -drink ~60+ oz of fluid per day -take the medications as on the list below but keep tabs on your nausea and when/if things are going well enough have Dr Brown help guide you on minimizing things when we can -have labwork (BMP) sunday and then as directed -follow up with Dr Brown pretty regularly right now (in addition to Dr Hodges as scheduled and the nephrology team) Total Time Total Time Spent Total Time Spent (In Minutes): >30 Supervising Physician Co-Signing Physician Notes Neutropenic feverresolved. Was likely viral acute renal failureATNfortunately no pulmonary edema or refractory hyperkalemia. Appreciate nephrology assistance. improving/recovery phase. showing good and steady improvement Nausea/severe protein calorie malnutrition (about 45 pounds of weight loss prior to admission)continue to discuss calorie goals. continues to slowly do better; continue current regimen Lymphomaongoing outpatient follow-up DVT prophylaxisheparin subcu home today
[2024-11-22 16:17] LABS: Anion Gap 8.0 (3-11); Blood Urea Nitrogen 38.0 mg/dl (6-23); Calcium 7.6 mg/dl (8.6-10.3); Carbon Dioxide 18.0 mmol/L (21-32); Chloride 117.0 mmol/L (98-107); Creatinine Clr Calc Pharmacy 18.6 ml/min; Glucose 154.0 mg/dl (70-99(Fasting)); Potassium 3.4 mmol/L (3.5-5.1); Sodium 143.0 mmol/L (136-145)
[2024-11-22 17:32] VITALS: BP 135/82; PULSE 97
--- NOTE | 2024-11-22 17:34 | Billing Data ---
Date of Service November 22, 2024 Coding Level of Care Code 13074 INP/OBS DISCH >30 MIN
== END 2024-11-22 18:23 | disposition home or self-care (01) | DRG 808 ==
LOC: ED 22:04 → 3E 11-05 04:34 → SUATTDRO 11-05 04:34 → 3E 11-05 05:41 → 2E 11-09 21:23 → 3W 11-19 20:57

== ENCOUNTER 2024-12-26 01:14 | Observation (INO) ==
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
[2024-12-26] MEDS: SODIUM CHLORIDE 0.9% 1,000 ML IV SCH (01:25)
[2024-12-26 01:37] LABS: Hematocrit (blood only) 21.0 % (42.0-52.0); Hemoglobin 7.2 g/dl (14.0-18.0); Mean Corpuscular Hemoglobin 30.5 pg (25.0-34.0); Mean Corpuscular Volume 89.0 fL (80.0-100.0); Platelet Count 160 K/uL (130-400); RDW Standard Deviation 54.6 fL (36.4-46.3); Red Blood Count 2.36 M/uL (4.70-6.10); White Blood Count 2.29 K/ul (4.8-10.8)
[2024-12-26 01:51] LABS: Albumin Level 2.8 gm/dl (3.4-5.0); Anion Gap 8.0 (3-11); Bilirubin,Total 0.8 mg/dl (0.2-1.0); Calcium 7.9 mg/dl (8.6-10.3); Carbon Dioxide 20.0 mmol/L (21-32); Chloride 101.0 mmol/L (98-107); Magnesium 1.4 mg/dl (1.7-2.4); Potassium 3.8 mmol/L (3.5-5.1); Sodium 129.0 mmol/L (136-145)
[2024-12-26 01:57] LABS: Alanine Aminotransferase 9.0 U/L (7-52); Alkaline Phosphatase 49.0 U/L (34-104); Blood Urea Nitrogen 14.0 mg/dl (6-23); Creatinine Clr Calc Pharmacy 81.1 ml/min; Glucose 105.0 mg/dl (70-99(Fasting)); Total Protein 5.3 gm/dl (6.0-8.3)
[2024-12-26] MEDS ORDERED: VANCOMYCIN CONSULT ACTIVE PRN (02:02)
[2024-12-26 02:16] LABS: Immature Granulocytes # (auto) 0.02 K/uL (0.01-0.20); Immature Granulocytes % (auto) 0.9 %; RBC Morphology Unremarkable
[2024-12-26 02:16] LABS: Base Excess VBG -1.7 mEq/L; HCO3 VBG 22 mmol/L; Oxygen Saturation VBG 83.1 %; PCO2 VBG 34 mmHg (38-50); PO2 VBG 49 mmHg; pH VBG 7.42 (7.36-7.41)
[2024-12-26 02:34] LABS: Chlamydia pneumoniae PCR Not Detected (NotDetected); Coronavirus 229E PCR Not Detected (NotDetected); Coronavirus CoV-2 (COVID19)PCR DETECTED (NotDetected); Coronavirus HKU1 PCR Not Detected (NotDetected); Coronavirus NL63 PCR Not Detected (NotDetected); Coronavirus OC43PCR Not Detected (NotDetected); Human Metapneumovirus PCR Not Detected (NotDetected); Parainfluenza Virus 1 PCR Not Detected (NotDetected); Parainfluenza Virus 2 PCR Not Detected (NotDetected); Parainfluenza Virus 3 PCR Not Detected (NotDetected); Parainfluenza Virus 4 PCR Not Detected (NotDetected); Respiratory Syncytial VirusPCR Not Detected (NotDetected); Rhinovirus/Enterovirus PCR Not Detected (NotDetected)
[2024-12-26] MEDS: CEFEPIME 2000MG 2,000 MG/20 ML SYR IV STA (02:40)
[2024-12-26 02:42] LABS: Appearance Urine Clear (Clear); Bacteria Urine Automated None Seen (None Seen); Cast Urine Automated 0-2 /lpf (0-2); Epithelial Cell Urine Auto 0-2 /hpf (0-2); Glucose Urine UA Negative (Negative); RBC Urine Automated 0-2 /hpf (0-2); WBC Urine Automated 0-5 /hpf (0-5)
[2024-12-26] MEDS: MAGNESIUM SULFATE / D5W 1 GM/100 ML BAG IV SCH ×2 (02:49→04:34)
[2024-12-26] MEDS: VANCOMYCIN HCL 2,000 MG in SODIUM CHLORIDE 0.9% 500 ML IV ONE (03:08)
--- NOTE | 2024-12-26 03:08 | History & Physical Report ---
Date of Service December 26, 2024 Assessment & Plan (1) Fever: (2) COVID-19: (3) Anemia: (4) Hyponatremia: (5) Hypomagnesemia: Plan 64-year-old male PMHx HTN, HLD, T2DM, obesity, angioimmunoblastic T-cell lymphoma, splenic mass, pulmonary nodules, ascending aorta dilatation, and e ssential tremor presenting for fever of 103 F and chest pain starting night of arrival. ED course does reveal presence of COVID, with evidence of leukopenia but no neutropenia. Patient is anemic. VBG's reveal compensatory mechanism. Magnesium found to be 1.4, calcium also decreased 7.9. Patient to be admitted for COVID in setting of active immunotherapy treatment for lymphoma, as well as manage for anemia. #Fever/COVID Fever 103 F, in setting of known T-cell lymphoma, also with onset chest pain starting night of arrival but none at present. Not hypoxic, not septic. Not requiring supplemental O2. Suspect fever 2/2 COVID. Previously "bad response to vancomycin for kidneys," so refused vancomycin at admission, pending further culture results. - CBC with leukopenia 2.29, not neutropenic; lactate 0.8; procalcitonin 0.52 - CBC am - VBG's pH 7.42, pCO2 34 - UA negative for infection - BioFire (+) COVID - CXR bulky + lobulated bilateral cherry, R > L, no consolidation or pleural effusion - COVID precautions - IS - O2 as needed - none at baseline - DuoNebs giorgio - Acetaminophen prn fever/pain - Cefepime 2 g IV - continue empirically, pending blood cultures #Anemia Known history of anemia, follows with hematology/oncology. - H&H 7.2/21.0 - CBC am - Iron panel 11/2024 with Fe 40, ferritin 941.1, Vit b12 496, folate 14.5 - Hematology/oncology consulted -- patient was to receive blood transfusion 12/29, ? to be done while in patient #Hyponatremia In setting of lymphoma, also slightly decreased food intake over the past few days. Overall appears euvolemic at present. Asx. - Na 129, glucose 105 - BMP - Serum osmol, urine Na, urine osmol pending - Mild fluid restriction, pending remaining workup #Hypomagnesemia On PPI. Received Mag sulfate 2g IV in ED. - Mg 1.4 - Mg am - Provide additional 2g IV #Angioimmunoblastic T-cell lymphoma Follows with oncology, most recent visit being 11/27/2024. Was initially to start BV CHP however, had gotten sick after this also in setting of poor renal function and cardiac function so has since been discontinued. Protocol of Bendamustine + Brentuximab vedotin started. - CBC leukopenia without neutropenia - trend CBC - H/H 7.2/21.0 - Hematology/oncology consulted - appreciate input + recs #HTN- Amlodipine - continue #Psych- Mirtazapine - continue #GERD- Famotidine, Pantoprazole - continue #HLD- Pravastatin - continue #BPH- Tamsulosin - continue Dispo: Obs, med/tele VTE prophylaxis: SCDs This document was dictated utilizing [employer]. Please excuse any grammatical errors that may be secondary to use of this software. Admission and Anticipated Discharge Date Admission Date: 12/25/2024 History of Present Illness Chief Complaint: Fever Primary Care Provider: Ochoa Brown DO 64-year-old male PMHx HTN, HLD, T2DM, obesity, angioimmunoblastic T-cell lymphoma, splenic mass, pulmonary nodules, ascending aorta dilatation, and essential tremor presenting for fever of 103 F and chest pain starting night of arrival. States that he initially tested negative for any viruses earlier the day of arrival, however he went home and had an elevated fever. He did have mild chest discomfort at that time, centralized, that resolved. No chills, cough, URI symptoms, or LUTS. 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 States that he may have felt more run down than usual and had slightly decreased appetite, but no alarming symptoms otherwise. Denies CP, SOB, palpitations, abdominal pain, N/V/D/C, numbness/tingling, chills, weakness, dizziness, or falls. He does relate that he does not necessarily want to stay in the hospital but understands that with his underlying history and the presence of additional findings, admission to hospital was recommended. Pt and agreeable. Pt is very involved with his grandchildren, boy hot shot, and his close friend and shares many stories regarding these topics once the connection was made that we share similar acquaintances/friends. ED evaluation reveals CBC with leukopenia 2.29, H&H 7.2/21.0, neutrophils WNL; VBGs pH 7.42, pCO2 34; CMP sodium 129, CO2 20, glucose 105, protein 5.3, albumin 2.8; calcium 7.9, magnesium 1.4; lactate 0.8; procalcitonin 0.52; UA negative for infection; BioFire positive for COVID; CXR pending official read; EKG NSR 88 bpm.; Provided with 1L NSS, mag sulfate 1 g IV, and cefepime 2 g IV in ED. Please see Dr. Santiago's attestation for adjustments/additions to treatment plan. Allergies Allergy/AdvReac Type Severity Reaction Status Date / Time Sulfa (Sulfonamide Allergy Unknown Hives Verified 12/04/24 14:31 Antibiotics) Home Medications Medication Instructions Recorded Confirmed Type aspirin 81 mg capsule 81 mg PO QAM preventative 11/20/22 12/04/24 History multivitamin 1 tab PO QAM 11/20/22 12/04/24 History ascorbic acid (vitamin C) 250 mg 500 mg PO QAM 08/28/23 12/04/24 History tablet (Vitamin C) icosapent ethyl 1 gram capsule 1 g PO BID 08/28/24 12/04/24 History (Vascepa) pravastatin 20 mg tablet 20 mg PO QAM 08/28/24 12/04/24 History magnesium 1 tab PO QPM 10/17/24 12/04/24 History tamsulosin 0.4 mg capsule (Flomax) 0.4 mg PO HS 10/17/24 12/04/24 History oxycodone 5 mg tablet 5 mg PO Q6H PRN pain #12 tabs 10/21/24 12/04/24 Rx prochlorperazine maleate 10 mg 10 mg PO UD PRN Nausea And Vomiting 11/05/24 12/04/24 History tablet ondansetron 8 mg disintegrating 8 mg PO Q8 PRN Nausea And Vomiting 11/22/24 12/04/24 Rx tablet #30 tabs amlodipine 5 mg tablet 5 mg PO DAILY 12/03/24 12/04/24 History famotidine 20 mg tablet 20 mg PO DAILY #60 tabs 12/03/24 12/04/24 Rx mirtazapine 15 mg tablet 15 mg PO HS #90 tabs 12/03/24 12/04/24 Rx pantoprazole 40 mg tablet,delayed 40 mg PO DAILY #90 tabs 12/03/24 12/04/24 Rx release Past Med/Surg History Problem List (Updated 12/26/24 @ 04:14 by Marielle Cardenas PA-C) Hypomagnesemia Hyponatremia Anemia Fever COVID-19 (Acute) GAYATRI (acute kidney injury) Lymphoma (Acute) Splenic mass Pulmonary nodule Ex-smoker Weak urinary stream HAKEEM positive 03/2024 - weakly positive 1:80. Obtained for LFT w/u. No joint pains or rashes to suggest SLE at that time. Elevated PSA Transaminitis Obesity (BMI 30-39.9) Type 2 diabetes mellitus with obesity Essential tremor Elevated LFTs Liver ultrasound 08/2023: Cholelithiasis, hepatomegaly, nephrolithiasis Ascending aorta dilatation Echo 12/2022: Dilated aortic root (4.7cm), ascending aorta (4.0cm) and aortic arch (4.0cm) Hyperlipidemia Hypertension Medical History Weak urinary stream hx Type 2 diabetes mellitus with obesity pt denies, "never told this" Splenic mass pt unsure about this? Pulmonary nodule History of hypertension Hx of hyperlipidemia Essential tremor Ascending aorta dilatation dilated aortic root 5.1 cm 10/17/24, pt was scheduled for sx at [facility] [place] 10/29/24 "for this, but it had to be pushed back due to my cancer diagnosis" HAKEEM positive 03/2024 - "weakly positive 1:80. Obtained for LFT w/u. No joint pains or rashes to suggest SLE at that time.">per PCP Shortness of breath on exertion pt denies "never had this problem" Hx of lymphoma dx 10/17/24 Hx of hiatal hernia repaired Hx of gastroesophageal reflux (GERD) Actinic keratosis Located to bilateral forearms s/p cryotherapy at [facility] Dermatology PVCs (premature ventricular contractions) asymptomatic Umbilical hernia without obstruction and without gangrene repaired Osteoarthritis Tubular adenoma of colon hx Hepatomegaly Per 08/2023 liver ultrasound Cholelithiases resolved Hx of renal calculi Right side Surgical History Port-A-Cath in place (10/22/24) Insertion of Access Port with Fluoroscopy left subclavian (Left) - Elie Petersen, DO Hx of cardiac cath (09/25/24) [facility], "preop for sx that was scheduled on his aorta for 10/29/24 at [facility]", no stents H/O umbilical hernia repair (01/23/24) Robotic Assisted Laparoscopic Cholecystectomy, Cholangiogram(Not Applicable) - Elie Petersen, DO s Open Umbilical Hernia Repair(Not Applicable) - Elie Petersen, DO Hx laparoscopic cholecystectomy (01/23/24) Robotic Assisted Laparoscopic Cholecystectomy, Cholangiogram(Not Applicable) - Elie Petersen, DO s Open Umbilical Hernia Repair(Not Applicable) - Elie Petersen, DO Status post laser lithotripsy of ureteral calculus x2 Hx of laparoscopy inguinal hernia mesh removal H/O left cataract extraction Hx of right cataract extraction Hx of cystoscopy History of esophagogastroduodenoscopy (EGD) Hx of colonoscopy 01/2023 S/P laparoscopic fundoplication (2001) Hx of hernia repair left inguinal hernia repair Hx of skin graft (1962) 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3 - skin graft from right leg to right axilla arm area Family History Father Myocardial infarction age 66 Heart disease Sister Cancer Brother Heart disease Other No family history of adverse response to anesthesia Denies family history of Ovarian cancer Prostate cancer Breast cancer Lung cancer Colorectal cancer Social History Smoking Status: Former smoker Tobacco Type: Cigarettes Age Started Using Tobacco: 14; Age Quit Using Tobacco: 46; packs per day: 1; Second Hand Exposure: No; Do You Dip or Chew Tobacco: No; Hx Alcohol Use: Yes Alcohol type: beer and hard liquor Alcohol Intake Frequency: 2-3 x/Week Hx Substance Use: No Preferred Language: Thai Communication Ability: Effective Visual Impairment: No Limitations Hearing Ability: Normal Application Penetration Tester Required: No Beliefs That Will Affect Care: None marital status: Current Living Situation: Spouse current occupational status: employed How many Children do You have: 4 Feels Safe at Home: Yes Childhood Exposure to Second-Hand Smoke: No Diet: regular caffeine: Yes (soda , coffee ) during the past year weight has: decreased > 10 lbs Dental Care, Regularly: No Physical Activity Frequency: 5-6 Times per Week Seatbelt Use: always Sunscreen Use: No Assistive Devices: None Review of Systems Review of Systems: All systems reviewed & are unremarkable except as noted in Subjective Physical Exam Physical Exam: General: No acute distress, wears mask throughout visit Skin: Warm and dry Head: Normocephalic, atraumatic Eyes: PERRL, conjunctivae clear, sclera non-icteric ENT: External ear and ear canal without swelling; nose atraumatic; good dentition, tongue normal appearance, pharynx normal Neck: Supple, no LAD Cardio/Chest: Port L chest, not erythematous or edematous, no drainage; RRR, no M/G/R, S1 and S2 normal Resp: No respiratory distress, Lungs CTA in all lobes bilaterally, no wheezes, rales, or rhonchi Abdomen: Soft, symmetric, nontender; No masses or hepatosplenomegaly; Bowel sounds normoactive MSK: No deformities; pulses palpable and equal; no edema. Neuro: Awake, alert; Sensation intact bilaterally; CN grossly intact Psych: Appropriate mood and affect; good judgement and insight. present in room at time of visit. Results & Data Results & Data Vital Signs (Past 12 Hours) Vital Signs Temp Pulse Resp BP Pulse Ox O2 Del Method 12/26/24 02:34 98 Room Air 12/26/24 01:22 37.5 C 86 20 114/73 97 Room Air 12/26/24 01:20 88 Laboratory Results 12/26/24 02:38 Aerobic Blood Culture - Pending Blood Anaerobic Blood Culture - Pending 12/26/24 01:55 Aerobic Blood Culture - Pending Blood Anaerobic Blood Culture - Pending 12/26/24 12/26/24 12/26/24 02:27 01:55 01:37 WBC RBC Hgb Hct MCV MCH MCHC RDW Std Deviation RDW Coeff of Sharita Plt Count MPV Immature Gran % (Auto) Neut % (Auto) Lymph % (Auto) Crane % (Auto) Eos % (Auto) Baso % (Auto) Neut # (Auto) Lymph # (Auto) Crane # (Auto) Eos # (Auto) Baso # (Auto) Immature Gran # (Auto) RBC Morphology VBG pH 7.42 H VBG pCO2 34 L VBG pO2 49 VBG HCO3 22 VBG O2 Saturation 83.1 VBG Base Excess -1.7 Sodium Potassium Chloride Carbon Dioxide Anion Gap BUN Creatinine Est Cr Clr Drug Dosing eGFR BUN/Creatinine Ratio Glucose Lactate 0.8 Calcium Magnesium Total Bilirubin Direct Bilirubin AST ALT Alkaline Phosphatase Troponin I High Sens Total Protein Albumin Procalcitonin Urine Color Yellow Urine Appearance Clear Urine pH 6.5 Ur Specific Maize 1.011 Urine Protein Negative Urine Glucose (UA) Negative Urine Ketones Negative Urine Blood Negative Urine Nitrite Negative Urine Bilirubin Negative Urine Urobilinogen Negative Ur Leukocyte Esterase Trace H Urine WBC (Auto) 0-5 Urine RBC (Auto) 0-2 U Hyaline Cast (Auto) 0-2 U Epithel Cells (Auto) 0-2 Urine Bacteria (Auto) None Seen Urine Comment Adenovirus (PCR) Not Detected B. pertussis DNA (PCR) Not Detected B.parapertussis DNA PCR Not Detected C. pneumoniae DNA (PCR) Not Detected Coronavirus OC43 (PCR) Not Detected Coronavirus HKU1 (PCR) Not Detected Coronavirus 229E (PCR) Not Detected SARS-CoV-2 (PCR) DETECTED A Coronavirus NL63 (PCR) Not Detected Human Metapneumovir PCR Not Detected Influenza Type A (PCR) Not Detected Influenza Type B (PCR) Not Detected M. pneumoniae (PCR) Not Detected Parainfluenza 1 (PCR) Not Detected Parainfluenza 2 (PCR) Not Detected Parainfluenza 3 (PCR) Not Detected Parainfluenza 4 (PCR) Not Detected RSV (PCR) Not Detected Entero/Rhino (PCR) Not Detected 12/26/24 01:18 WBC 2.29 L RBC 2.36 L Hgb 7.2 L Hct 21.0 L MCV 89.0 MCH 30.5 MCHC 34.3 RDW Std Deviation 54.6 H RDW Coeff of Sharita 17.0 H Plt Count 160 MPV 9.1 L Immature Gran % (Auto) 0.9 Neut % (Auto) 73.4 Lymph % (Auto) 10.5 Crane % (Auto) 14.4 Eos % (Auto) 0.4 Baso % (Auto) 0.4 Neut # (Auto) 1.68 Lymph # (Auto) 0.24 L Crane # (Auto) 0.33 Eos # (Auto) 0.01 Baso # (Auto) 0.01 Immature Gran # (Auto) 0.02 RBC Morphology Unremarkable VBG pH VBG pCO2 VBG pO2 VBG HCO3 VBG O2 Saturation VBG Base Excess Sodium 129 L Potassium 3.8 Chloride 101 Carbon Dioxide 20 L Anion Gap 8 BUN 14 Creatinine 1.10 Est Cr Clr Drug Dosing 81.1 eGFR 74.04 BUN/Creatinine Ratio 12.7 Glucose 105 H Lactate Calcium 7.9 L Magnesium 1.4 L Total Bilirubin 0.8 Direct Bilirubin 0.2 AST 18 ALT 9 Alkaline Phosphatase 49 Troponin I High Sens 14.5 Total Protein 5.3 L Albumin 2.8 L Procalcitonin 0.52 H Urine Color Urine Appearance Urine pH Ur Specific Maize Urine Protein Urine Glucose (UA) Urine Ketones Urine Blood Urine Nitrite Urine Bilirubin Urine Urobilinogen Ur Leukocyte Esterase Urine WBC (Auto) Urine RBC (Auto) U Hyaline Cast (Auto) U Epithel Cells (Auto) Urine Bacteria (Auto) Urine Comment Adenovirus (PCR) B. pertussis DNA (PCR) B.parapertussis DNA PCR C. pneumoniae DNA (PCR) Coronavirus OC43 (PCR) Coronavirus HKU1 (PCR) Coronavirus 229E (PCR) SARS-CoV-2 (PCR) Coronavirus NL63 (PCR) Human Metapneumovir PCR Influenza Type A (PCR) Influenza Type B (PCR) M. pneumoniae (PCR) Parainfluenza 1 (PCR) Parainfluenza 2 (PCR) Parainfluenza 3 (PCR) Parainfluenza 4 (PCR) RSV (PCR) Entero/Rhino (PCR) Diagnostic Findings Chest X-Ray 12/26/24 01:18 EXAM: XR chest 1V portable CLINICAL HISTORY: Sepsis TECHNIQUE: An X-ray image of the chest is obtained in AP projection. COMPARISON: 11/06/2024 CR FINDINGS: Pulmonary Parenchyma: No evidence of consolidation or collapse. No evidence of pleural effusion or pleural thickening. Heart and Mediastinum: Heart size and shape are normal. No mediastinal widening or masses. Bilateral cherry appear bulky and lobulated more on the right Bony Thorax: Bony thorax appears intact. Soft Tissues: Soft tissues overlying the chest wall are unremarkable. A left-sided [id number] is noted with its tip at the distal SVC. Chest leads are noted overlying the chest wall. IMPRESSION: Bulky and lobulated bilateral cherry, more on the right, could be altagracia or vascular. No evidence of consolidation or pleural effusion. No significant interval change. Electronically signed by Aguilar Canas 12-26-2024 03:26 AM Medications Administered 1L NSS Mag sulfate 1 g IV Cefepime 2 g IV ECG Additional Comments: NSR 88 bpm, NM 147, QRS 82, QT/QTc 360/435, PRT 39/-14/14 Code Status & VTE Plan Code Status Full PG Care Time/CCT Total # of Minutes Spent Total Time Spent with Patient: Total time spent is greater than 50% in coordination of care (as documented) at patient's floor/unit and/or counseling patient: Coding Level of Care Code 00259 INT INP/OBS CARE 3/75MIN Diagnoses Fever R50.9 COVID-19 U07.1 Anemia D64.9 Hyponatremia E87.1 Hypomagnesemia E83.42
--- NOTE | 2024-12-26 03:26 | XRay Report ---
EXAM: XR chest 1V portable CLINICAL HISTORY: Sepsis TECHNIQUE: An X-ray image of the chest is obtained in AP projection. COMPARISON: 11/06/2024 CR FINDINGS: Pulmonary Parenchyma: No evidence of consolidation or collapse. No evidence of pleural effusion or pleural thickening. Heart and Mediastinum: Heart size and shape are normal. No mediastinal widening or masses. Bilateral cherry appear bulky and lobulated more on the right Bony Thorax: Bony thorax appears intact. Soft Tissues: Soft tissues overlying the chest wall are unremarkable. A left-sided [id number] is noted with its tip at the distal SVC. Chest leads are noted overlying the chest wall. IMPRESSION: Bulky and lobulated bilateral cherry, more on the right, could be altagracia or vascular. No evidence of consolidation or pleural effusion. No significant interval change. Electronically signed by Aguilar Canas 12-26-2024 03:26 AM
[2024-12-26] MEDS ORDERED: POLYETHYLENE (MIRALAX) 17 GM PACK PO PRN (06:18)
[2024-12-26] MEDS ORDERED: ONDANSETRON INJ 2 MG/ML 2 ML VIAL IV PRN (06:18)
[2024-12-26] MEDS: ALBUT/IPRATROP 3MG/0.5MG NEB 3 ML VIAL NEB SCH (07:14)
[2024-12-26] MEDS: ASPIRIN 81 MG ECTAB PO SCH (08:43)
[2024-12-26] MEDS: PRAVASTATIN SOD 20 MG TAB PO SCH (08:43)
[2024-12-26] MEDS: FAMOTIDINE 20 MG TAB PO SCH (08:49)
[2024-12-26] MEDS ORDERED: ALBUT/IPRATROP 3MG/0.5MG NEB 3 ML VIAL NEB PRN (09:53)
[2024-12-26] MEDS: HEPARIN 100 UNIT/ML 5ML FLUSH ONE (09:59)
[2024-12-26] MEDS: CEFEPIME 2000MG 2,000 MG/20 ML SYR IV SCH (09:59)
[2024-12-26] MEDS: ACETAMINOPHEN 325 MG TAB PO PRN (10:11)
[2024-12-26 10:23] LABS: Anion Gap 8.0 (3-11); Blood Urea Nitrogen 15.0 mg/dl (6-23); Calcium 7.8 mg/dl (8.6-10.3); Carbon Dioxide 20.0 mmol/L (21-32); Chloride 100.0 mmol/L (98-107); Creatinine Clr Calc Pharmacy 86.6 ml/min; Glucose 127.0 mg/dl (70-99(Fasting)); Magnesium 2.0 mg/dl (1.7-2.4); Potassium 3.7 mmol/L (3.5-5.1); Sodium 128.0 mmol/L (136-145)
[2024-12-26 10:26] LABS: Hematocrit (blood only) 20.7 % (42.0-52.0); Hemoglobin 7.2 g/dl (14.0-18.0); Mean Corpuscular Hemoglobin 31.0 pg (25.0-34.0); Mean Corpuscular Volume 89.2 fL (80.0-100.0); Platelet Count 163 K/uL (130-400); RDW Standard Deviation 55.0 fL (36.4-46.3); Red Blood Count 2.32 M/uL (4.70-6.10); White Blood Count 2.55 K/ul (4.8-10.8)
[2024-12-26] MEDS: REMDESIVIR 200 MG in SODIUM CHLORIDE 0.9% 210 ML IV ONE (11:13)
--- NOTE | 2024-12-26 13:02 | Electrocardiogram Report ---
Test Reason : Blood Pressure : */* mmHG Vent. Rate : 88 BPM Atrial Rate : 88 BPM P-R Int : 174 ms QRS Dur : 82 ms QT Int : 360 ms P-R-T Axes : 39 -14 14 degrees QTcB Int : 435 ms Normal sinus rhythm Normal ECG When compared with ECG of 09-Nov-2024 18:29, Questionable change in QRS axis Confirmed by Luis Fernando Solis ([id number]) on 12/26/2024 1:02:16 PM Referred By: Lorenzo Hodges Confirmed By: Luis Fernando Solis
[2024-12-26] MEDS: DAPTOmycin 700 MG in SYRINGE 0 ML IV SCH (13:22)
[2024-12-26] MEDS: LACTATED RINGER'S 1,000 ML IV SCH (16:54)
[2024-12-26] MEDS: ONDANSETRON 8MG OD TAB PO PRN (16:56)
[2024-12-26] MEDS: PROCHLORPERAZINE MALEATE 10 MG TAB PO PRN (17:59)
--- NOTE | 2024-12-26 19:03 | Communication Note ---
Date of Service: December 26, 2024 Feeling pretty well except for the fever. cough no dyspnea. no other focal symptoms W 2, Hg 7.2 Na 128 Pct 0.5-->0.6 #COVID-19, fever in immunocompromised patient (malignancy, immunotherapy, leukopenia) -at risk of severe COVID so start remdesivir. At least 3 days, extend to 5 if remaining significantly ill -no steroids since not hypoxic -continue empiric cefepime, check nasal MRSA (neg), add daptomycin - pending blood cultures -ddx is immunotherapy-related toxicity - seems unlikely. 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 Could have SIADH but suspect hypovolemia at this point -IV LR -AM BMP #hypomag - replaced
[2024-12-26] MEDS: TAMSULOSIN HCL 0.4 MG CAP PO SCH (19:42)
[2024-12-26] MEDS: MIRTAZAPINE TAB 15 MG TAB PO SCH (19:43)
[2024-12-26] MEDS: MELATONIN 3 MG TAB PO PRN (19:47)
[2024-12-27] MEDS: HEPARIN 100 UNIT/ML 5ML FLUSH FLUSH PRN (01:23)
[2024-12-27 07:28] LABS: Hematocrit (blood only) 20.5 % (42.0-52.0); Hemoglobin 6.7 g/dl (14.0-18.0); Mean Corpuscular Hemoglobin 29.4 pg (25.0-34.0); Mean Corpuscular Volume 89.9 fL (80.0-100.0); Platelet Count 163 K/uL (130-400); RDW Standard Deviation 55.6 fL (36.4-46.3); Red Blood Count 2.28 M/uL (4.70-6.10); White Blood Count 2.29 K/ul (4.8-10.8)
[2024-12-27 07:42] LABS: Anion Gap 7.0 (3-11); Blood Urea Nitrogen 16.0 mg/dl (6-23); Calcium 7.8 mg/dl (8.6-10.3); Carbon Dioxide 21.0 mmol/L (21-32); Chloride 104.0 mmol/L (98-107); Creatinine Clr Calc Pharmacy 91.0 ml/min; Glucose 95.0 mg/dl (70-99(Fasting)); Magnesium 1.8 mg/dl (1.7-2.4); Potassium 3.6 mmol/L (3.5-5.1); Sodium 132.0 mmol/L (136-145)
[2024-12-27] MEDS ORDERED: SODIUM CHLORIDE 0.9% 100 ML IV PRN (10:00)
[2024-12-27] MEDS: ACETAMINOPHEN 500 MG TAB PO ONE (11:14)
[2024-12-27] MEDS: REMDESIVIR 100 MG in SODIUM CHLORIDE 0.9% 230 ML IV SCH (12:50)
[2024-12-27 16:35] LABS: Hematocrit (blood only) 24.3 % (42.0-52.0); Hemoglobin 8.3 g/dl (14.0-18.0)
--- NOTE | 2024-12-27 17:52 | Hospitalist Progress Note ---
Date of Service December 27, 2024 Assessment & Plan (1) Fever: (2) COVID-19: (3) Anemia: (4) Hyponatremia: Plan 64 y/o with T-cell lymphoma on treatment admitted with fever, COVID-19 #COVID-19, fever in immunocompromised patient (malignancy, immunotherapy, leukopenia) -at risk of severe COVID so started remdesivir. At least 3 days, extend to 5 if remaining significantly ill -no steroids since not hypoxic -continue empiric cefepime, check nasal MRSA (neg), daptomycin - pending blood cultures -ddx is immunotherapy-related toxicity - seems unlikely. 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 Could have SIADH but suspect hypovolemia at this point -IV LR -improved to 132 -AM BMP #Hypomagnesemia On PPI. Received Mag sulfate 2g IV in ED. Replaced with additional IV mag. Monitor - 1.8 #Angioimmunoblastic T-cell lymphoma Follows with oncology, most recent visit being 11/27/2024. Was initially to start BV CHP however, had gotten sick after this also in setting of poor renal function and cardiac function so has since been discontinued. Protocol of Bendamustine + Brentuximab vedotin started. -Cr stable at 0.98 #dilated aortic root - planned for surgery but deferred until after lymphoma treatment which was urgent #HTN- Amlodipine - continue #Psych- Mirtazapine - continue #GERD- Famotidine, Pantoprazole - continue #HLD- Pravastatin - continue #BPH- Tamsulosin - continue Admission and Anticipated Discharge Date Admission Date: December 26, 2024 Subjective Feeling good and does have some fatigue, feels well when he doesn't have fever. No dyspnea minimal cough Physical Exam 2 Physical Exam: Last 24h vitals reviewed GEN: no acute distress, sitting up in recliner HEENT: pupils equal, sclerae anicteric, moist MM RESP: normal WOB, CTAB CV: reg no mrg, L ant port ABD: soft/nt/nd +BT : no trent SKIN: warm and dry, no generalized rashes NEURO: AOx person, place, and situation. Face symmetric, speech normal, moves 4 ext spontaneously and equally Results & Data Results & Data Vital Signs (Past 12 Hours) Vital Signs Temp Pulse Pulse Resp BP BP Pulse Ox 12/27/24 15:18 37.1 C 91 H 20 132/80 99 12/27/24 13:43 37.1 C 87 16 130/74 98 12/27/24 13:00 95 H 12/27/24 12:43 37.8 C H 101 H 16 144/71 H 96 12/27/24 12:13 37.8 C H 105 H 18 145/89 H 97 12/27/24 11:58 38.8 C H 105 H 18 122/79 93 12/27/24 11:43 38.6 C H 120 H 20 143/72 H 94 12/27/24 11:26 38.6 C H 120 H 20 143/72 H 94 12/27/24 08:14 37.4 C 98 H 18 135/77 96 O2 Del Method 12/27/24 15:18 12/27/24 13:43 12/27/24 13:00 12/27/24 12:43 12/27/24 12:13 12/27/24 11:58 12/27/24 11:43 12/27/24 11:26 12/27/24 08:14 Room Air Laboratory Results 12/27/24 16:20 12/27/24 06:51 Hg 7.2-->6.7--> transfused 1 unit -->8.3 PG Care Time/CCT Total # of Minutes Spent Total Time Spent with Patient: Total time spent is greater than 50% in coordination of care (as documented) at patient's floor/unit and/or counseling patient: Coding Level of Care Code 13858 SUB INP/OBS CARE 3/50MIN Diagnoses Fever R50.9 COVID-19 U07.1 Anemia D64.9 Hyponatremia E87.1
[2024-12-27] MEDS: ENOXAPARIN INJ 40 MG/0.4 ML SYR SQ SCH (18:29)
[2024-12-27 20:10] VITALS: RESP 18
[2024-12-28 06:15] LABS: Hematocrit (blood only) 24.5 % (42.0-52.0); Hemoglobin 8.5 g/dl (14.0-18.0); Mean Corpuscular Hemoglobin 30.4 pg (25.0-34.0); Mean Corpuscular Volume 87.5 fL (80.0-100.0); Platelet Count 167 K/uL (130-400); RDW Standard Deviation 55.9 fL (36.4-46.3); Red Blood Count 2.80 M/uL (4.70-6.10); White Blood Count 2.09 K/ul (4.8-10.8)
[2024-12-28 06:37] LABS: Anion Gap 8.0 (3-11); Blood Urea Nitrogen 15.0 mg/dl (6-23); Calcium 7.9 mg/dl (8.6-10.3); Carbon Dioxide 20.0 mmol/L (21-32); Chloride 105.0 mmol/L (98-107); Creatinine Clr Calc Pharmacy 102.5 ml/min; Glucose 97.0 mg/dl (70-99(Fasting)); Magnesium 1.7 mg/dl (1.7-2.4); Potassium 3.3 mmol/L (3.5-5.1); Sodium 133.0 mmol/L (136-145)
[2024-12-28 08:39] VITALS: O2SAT 95
[2024-12-28] MEDS: POTASSIUM CHLORIDE CRTAB 20 MEQ TABCR PO ONE (09:18)
[2024-12-28 09:22] LABS: ALC (manual) 0.19 K/uL (1.2-3.4); ANC (manual) 1.15 K/uL (1.4-6.5); Other Cell Type % 24 %
[2024-12-28] MEDS: MAGNESIUM SULFATE / D5W 1 GM/100 ML BAG IV ONE (09:22)
[2024-12-28 11:10] VITALS: TEMP 98.6
--- NOTE | 2024-12-28 11:20 | Discharge Summary ---
Discharge Summary Date of Service December 28, 2024 Principal Dx & Hospital Course #1 = Principal Diagnosis (1) Fever: (2) COVID-19: (3) Anemia: (4) Hyponatremia: Plan 64 y/o with T-cell lymphoma on treatment admitted with fever, COVID-19 Fever was from COVID-19 and he had improvement in malaise, respiratory symptoms were nil and never had hypoxia. Feels much better and discharged home today. #COVID-19, fever in immunocompromised patient (malignancy, immunotherapy, leukopenia) -at risk of severe COVID so started remdesivir. Got two days worth, improved and minimally symptomatic so did not want to stay a day for third dose. I think low risk for developing severe COVID at this point. -no steroids since not hypoxic -treated empirically with dapto and cefepime until blood cultures negative at >48h then stopped. Follow up blood cx to finalization. -has low grade chronic fevers from his lymphoma. 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 Could have SIADH but suspect hypovolemia at this point -improved to 133 by discharge #Hypomagnesemia On PPI. Replaced IV. Low normal level gave 1 g IV today, resume po supplement. replaced mild hypokalemia po today. eating well. #Angioimmunoblastic T-cell lymphoma Follows with oncology, most recent visit being 11/27/2024. Was initially to start BV CHP however, had gotten sick after this also in setting of poor renal function and cardiac function so has since been discontinued. Protocol of Bendamustine + Brentuximab vedotin started. -Cr stable at 0.87 #dilated aortic root - planned for surgery but deferred until after lymphoma t reatment which was urgent #HTN- Amlodipine - continue #Psych- Mirtazapine - continue #GERD- Famotidine, Pantoprazole - continue #HLD- Pravastatin - continue #BPH- Tamsulosin - continue Notes For Next Care Provider transfused 1 unit RBC this admission fevers due to COVID blood cultures NGTD and no other source of fever found Admission HPI Per Admitting Provider 64-year-old male PMHx HTN, HLD, T2DM, obesity, angioimmunoblastic T-cell lymphoma, splenic mass, pulmonary nodules, ascending aorta dilatation, and essential tremor presenting for fever of 103 F and chest pain starting night of arrival. States that he initially tested negative for any viruses earlier the day of arrival, however he went home and had an elevated fever. He did have mild chest discomfort at that time, centralized, that resolved. No chills, cough, URI symptoms, or LUTS. 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 States that he may have felt more run down than usual and had slightly decreased appetite, but no alarming symptoms otherwise. Denies CP, SOB, palpitations, abdominal pain, N/V/D/C, numbness/tingling, chills, weakness, dizziness, or falls. He does relate that he does not necessarily want to stay in the hospital but understands that with his underlying history and the presence of additional findings, admission to hospital was recommended. Pt and agreeable. 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 ED evaluation reveals CBC with leukopenia 2.29, H&H 7.2/21.0, neutrophils WNL; VBGs pH 7.42, pCO2 34; CMP sodium 129, CO2 20, glucose 105, protein 5.3, albumin 2.8; calcium 7.9, magnesium 1.4; lactate 0.8; procalcitonin 0.52; UA negative for infection; BioFire positive for COVID; CXR pending official read; EKG NSR 88 bpm.; Provided with 1L NSS, mag sulfate 1 g IV, and cefepime 2 g IV in ED. Please see Dr. Santiago's attestation for adjustments/additions to treatment plan. Discharge Exam Last 24h vitals reviewed GEN: no acute distress, sitting up in recliner exam unchanged 12/28: HEENT: pupils equal, sclerae anicteric, moist MM RESP: normal WOB, CTAB CV: reg no mrg, L ant port ABD: soft/nt/nd +BT : no trent SKIN: warm and dry, no generalized rashes NEURO: AOx person, place, and situation. Face symmetric, speech normal, moves 4 ext spontaneously and equally Discharge Plan Discharge Items Patient Disposition: Home - Self-Care Reason For Visit: FEVER, COVID, HYPONATREMIA Discharge Diagnosis: COVID-19, anemia Condition on Discharge: Good Activity: Resume your previous activity Non-emergency contact: Primary Care Provider and Oncologist Call non-emergency contact if: you have any medication questions and your symptoms worsen Follow-up/Referrals: Ochoa Brown DO [Primary Care Provider] - 01/05/25 11:30 am Lorenzo Hodges MD [Physician] - Diet: Regular Addtl Attending Provider Instructions: You were evaluated for fever and found to have COVID-19 You were treated with remdesivir for two doses. Typically we give three, how ever, you have minimal symptoms so I think its ok to stop early. You might still have fevers for several days. Seek immediate medical evaluation if you are getting ill. Blood cultures are negative so far. I think its safe to stop antibiotics at this point. If blood cultures unexpectedly turn positive I may have to call you back in for IV antibiotics. They finalize at five days. You had blood transfusion and Hg improved to 8.5, which is the goal Follow up with Dr. Hodges as planned It was a pleasure taking care of you in the hospital, Reina Vidal MD Pending Studies at Discharge: Yes Stand-Alone Forms: My [facility], Smoking Cessation Medications and DC Order Prescriptions: Continued amlodipine 5 mg tablet 5 mg PO DAILY famotidine 20 mg tablet 20 mg PO DAILY Qty: 60 0RF pantoprazole 40 mg tablet,delayed release (DR/EC) 40 mg PO DAILY Qty: 90 3RF mirtazapine 15 mg tablet 15 mg PO HS Qty: 90 3RF icosapent ethyl [Vascepa] 1 gram capsule 1 g PO BID pravastatin 20 mg tablet 20 mg PO QAM multivitamin Tablet 1 tab PO QAM aspirin 81 mg Capsule 81 mg PO QAM ascorbic acid (vitamin C) [Vitamin C] 250 mg tablet 500 mg PO QAM magnesium Tablet 1 tab PO QPM tamsulosin [Flomax] 0.4 mg capsule 0.4 mg PO HS oxycodone 5 mg tablet 5 mg PO Q6H PRN (Reason: pain) Qty: 12 0RF Rx Instructions: Initial therapy post surgery prochlorperazine maleate 10 mg tablet 10 mg PO UD PRN (Reason: Nausea And Vomiting) ondansetron 8 mg tablet,disintegrating 8 mg PO Q8 PRN (Reason: Nausea And Vomiting) Qty: 30 0RF Discharge Orders: Discharge Order (Routine); Ordered 12/28/24 Ordered By: Reina Vidal Admission Data Admit Date/Time: 12/26/24 16:00 Attending Provider: Reina Vidal Admit Provider: Britt Santiago Primary Care Provider: Ochoa Brown Other Providers: Britt Santiago; Kylah Hemphill; Rigoberto Hayes; Lorenzo Hodges; Nicole Montalvo; Srinivas Henderson; Robby Guzman; Sally Menchaca; Srikanth,No Attending Other Interventions: Discharge Summary Assessment (RN) Last Done: 12/28/24 11:53 Hospital Stay Data Consultations 12/26/24 03:02 ED Decision to Admit Stat 12/26/24 06:18 Consult Oncology Routine Pending Results Patient Have Any Pending Studies at Discharge: Yes Discharge Instructions Given to Patient (Per Discharging Provider) You were evaluated for fever and found to have COVID-19 You were treated with remdesivir for two doses. Typically we give three, however, you have minimal symptoms so I think its ok to stop early. You might still have fevers for several days. Seek immediate medical evaluation if you are getting ill. Blood cultures are negative so far. I think its safe to stop antibiotics at this point. If blood cultures unexpectedly turn positive I may have to call you back in for IV antibiotics. They finalize at five days. You had blood transfusion and Hg improved to 8.5, which is the goal Follow up with Dr. Hodges as planned It was a pleasure taking care of you in the hospital, Reina Vidal MD Total Time Total Time Spent Total Time Spent (In Minutes): I personally spent: 40 minutes today on clinical care activities including: reviewing chart notes and vital signs reviewing labs reviewing micro examining and counseling the patient counseling the patient's family writing orders discharge instructions documentation Coding Level of Care Code 02263 INP/OBS DISCH >30 MIN Diagnoses Fever R50.9 COVID-19 U07.1 Anemia D64.9 Hyponatremia E87.1
[2024-12-28 11:55] VITALS: BP 111/71; PULSE 103
== END 2024-12-28 12:19 | disposition home or self-care (01) | DRG 178 ==
LOC: 2N 01:14 → ED 01:14 → SUATTDRO 03:58 → 2N 05:55